=== PATIENT | female | born 1960 | race African-American/Black ===

== ENCOUNTER → 2016-09-26 | Outpatient (CLI) | payer MEDICAID ==
[2016-02-03 10:21] VITALS: BP 164/77
--- NOTE | 2016-09-27 10:31 | MG ---
HISTORY: SCREENING Comparison: August 23, 2014 and September 13, 2015 FINDINGS: Bilateral CC and MLO projections of the right and left breast were obtained. Scattered fibroglandul ar tissue is seen to be present without suspicious interval change. No new or developing architectu ral distortion, mass or clustered microcalcifications can be observed to suggest malignancy. No ski n thickening or nipple retraction is appreciated. No pathological lymphadenopathy can be identifie d. Benign-appearing calcifications are noted within the right and left breast. The patient has under gone previous reduction mammoplasty with findings of fat necrosis and oil cyst formation. IMPRESSION: NO RADIOGRAPHIC EVIDENCE OF MALIGNANCY. ACR CATEGORY 2 - benign findings. FOLLOW-UP EXAM 1 YEAR. Diagnostic CAD was utilized and reviewed. * 0 (ZERO) - ASSESSMENT INCOMPLETE; ADDITIONAL IMAGING IS NEEDED. * 1/1 (ONE) - NEGATIVE. * 2/II (TWO) - BENIGN FINDINGS. * 3/III (THREE) - PROBABLY BENIGN FINDING; SHORT INTERVAL FOLLOW-UP SUGGESTED. * 4/IV (FOUR) - SUSPICIOUS ABNORMALITY; BIOPSY SHOULD BE CONSIDERED. * 5/V (FIVE) - HIGHLY SUSPICIOUS OF MALIGNANCY; BIOPSY SHOULD BE PERFORMED. A NEGATIVE X-RAY REPORT SHOULD NOT DELAY BIOPSY IF A DOMINANT OR CLINICALLY SUSPICIOUS MASS IS PRESENT; 4 TO 8 PERCENT OF CANCERS ARE NOT IDENTIFIED BY X-RAY. A NEG ATIVE REPORT MAY REINFORCE THE CLINICAL IMPRESSION. ADENOSIS AND DENSE BREASTS MAY OBSCURE AN UNDER LYING NEOPLASM. Reported By:
== END ==
LOC: RAD 09:22
PROVIDERS: ATTEND Nurse Practitioner Family
DX: Z12.31 Encounter for screening mammogram for malignant neoplasm of breast (principal)
CPT/HCPCS: 77067

== ENCOUNTER 2019-05-04 07:10 | Inpatient (IN) ==
[2019-05-04 07:23] VITALS: BMI 58.1
[2019-05-04] MEDS ORDERED: ZOFRAN INJ 4 MG VIAL IM ONE (07:45)
[2019-05-04] MEDS ORDERED: TORADOL 60 MG VIAL IM ONE (07:45)
[2019-05-04] MEDS ORDERED: TORADOL 60 MG VIAL ONE (07:48)
[2019-05-04] MEDS ORDERED: ZOFRAN INJ 4 MG VIAL ONE ×3 (07:48→09:29)
[2019-05-04 08:11] LABS: BASOPHILS % (AUTO) 0.6 % (0.2-1.0); EOSINOPHILS # (AUTO) 0.2 x10^3/uL (0.0-0.2); EOSINOPHILS % (AUTO) 2.9 % (0.9-2.9); HEMATOCRIT 33.9 % (36.0-47.0); HEMOGLOBIN 11.3 g/dL (12.0-16.0); LYMPHOCYTES # (AUTO) 1.2 X10^3/uL (1.3-2.9); LYMPHOCYTES % (AUTO) 19.9 % (21.0-51.0); MEAN CORPUSCULAR HEMOGLOBIN 27.5 pg (27.0-34.0); MEAN CORPUSCULAR HGB CONC 33.4 g/dL (33.0-35.0); MEAN CORPUSCULAR VOLUME 82.5 fL (80.0-100.0); MEAN PLATELET VOLUME 7.5 fL (7.4-11.0); MONOCYTES # (AUTO) 0.2 x10^3/uL (0.3-0.8); MONOCYTES % (AUTO) 4.1 % (0.0-13.0); NEUTROPHILS # (AUTO) 4.4 x10^3/uL (2.2-4.8); NEUTROPHILS % (AUTO) 72.5 % (42.0-75.0); PLATELET COUNT 284 X10^3/uL (150.0-450.0); RED BLOOD COUNT 4.11 X10^6/uL (3.5-5.4); RED CELL DISTRIBUTION WIDTH 14.7 % (11.6-16.5); WHITE BLOOD COUNT 6.1 X10^3/uL (3.6-10.0)
[2019-05-04 08:19] LABS: ALANINE AMINOTRANSFERASE 17 Units/L (12-78); ALBUMIN 3.5 g/dL (3.4-5.0); ALKALINE PHOSPHATASE 100 Units/L (46-116); AMYLASE 51 Units/L (25-115); ASPARTATE AMINO TRANSFERASE 16 Units/L (15-37); BLOOD UREA NITROGEN 12 mg/dL (7-18); CALCIUM 8.9 mg/dL (8.5-10.1); CARBON DIOXIDE 33.5 mmol/L (21-32); CHLORIDE 101 mmol/L (98-107); COR NA(FOR HYPERGLY) 141 mmol/L (136-145); CREATININE 0.83 mg/dL (0.55-1.02); LIPASE 101 Units/L (73-393); SODIUM 140 mmol/L (136-145); TOTAL PROTEIN 8.3 g/dL (6.4-8.2); eGFR NON BLACK RACES > 60 (>60)
[2019-05-04] MEDS ORDERED: ROBINUL ONE (08:27)
[2019-05-04] MEDS ORDERED: DIPRIVAN VIAL ONE (08:27)
[2019-05-04] MEDS ORDERED: NEOSTIGMINE INJ ONE (08:27)
[2019-05-04] MEDS ORDERED: QUELICIN (OR ANECTINE) ONE (08:27)
[2019-05-04] MEDS ORDERED: NORCURON INJ 10 MG VIAL ONE (08:27)
[2019-05-04] MEDS ORDERED: SUPRANE ONE (08:27)
[2019-05-04] MEDS ORDERED: XYLOCAINE 2 % (PLAIN) ONE (08:27)
[2019-05-04] MEDS ORDERED: VERSED ONE (08:27)
[2019-05-04] MEDS ORDERED: EPHEDRINE SULFATE INJ ONE (08:27)
[2019-05-04] MEDS ORDERED: PROTONIX INJ 40 MG VIAL IVP ONE (08:56)
[2019-05-04 09:03] LABS: BILIRUBIN,URINE NEGATIVE (NEGATIVE); BLOOD/HEMOGLOBIN,URINE NEGATIVE (NEGATIVE); GLUCOSE, URINE NEGATIVE (NEGATIVE); KETONES,URINE NEGATIVE (NEGATIVE); LEUKOCYTE ESTERASE ,URINE NEGATIVE (NEGATIVE); NITRITES,URINE NEGATIVE (NEGATIVE); PROTEIN,URINE 1+ (NEGATIVE); UROBILINOGEN,URINE NORMAL (NORMAL)
[2019-05-04] MEDS ORDERED: PROTONIX INJ 40 MG VIAL ONE (09:04)
[2019-05-04] MEDS ORDERED: CATAPRES TAB 0.2 MG ONE (09:04)
--- NOTE | 2019-05-04 09:04 | ED.ABDFE ---
HPI Time Seen Time Seen by Provider: 05/04/19 07:42 PCP Primary Care Physician: EMANUEL HPI Comment HPI Comment: Ever since her cholecystectomy, she has had intermittent abd pain. Last night, more severe w vomiting. No fever. She says she has a hernia in her belly(?). Complaint Chief Complaint:: PT STATES I HAD MY GALL BLADDER OUT BEFORE THANKSGVING.MY STOMACH IS HURTNG IN THE UPPER GASTRIC PAIN. I HAVE BEEN TRHOWING UP ALL NIGHT AND HAVE DRY HEAVES NOW." DENIES DIARRHEA, NO BLOOD WITH EMESIS. LAST TIME HAD BM LAST NIGHT Self Treatment fo Chief Complaint: PT FAMILY VOCIES CONCERN WITH PT DRINKING LIQUOR, PT GETS DEFENSIVE WITH FAMILY. Reviewed Nurses Notes Review: Yes Source History Provided: Patient and Family Member Mode of arrival Mode of Arrival: Ambulatory Timing Onset of Chief Complaint: 05/04/19 Came on: Gradually Duration Since Onset: Since Onset Location Location: Epigastric Severity Severity: Severe Quality Quality: Cramping and Sharp Context History of: Abdominal surgery Modifying factors Worsening Factors: Nothing Improving Factors: Nothing Associated signs and symptoms Associated Signs and Symptoms: Vomiting; denies Diarrhea, Constipation, Hematemesis and Dysuria PMH PMH Past Medical History: Yes Past Medical History: Asthma, CHF, COPD and Hypertension Past Surgical History: Yes Surgical History: and Cholecystectomy Past Surgical History Comment: BTL Family History History of Family Medical Conditions: Yes Family Medical History: Hypertension Social History Does patient currently use any type of tobacco product: Yes Have you used tobacco products in the last 12 months: Yes Does any household member use tobacco: No Alcohol Use: Occasionally and Other (her family indicates regular use of ETOH) Do you use any recreational Drugs:: No Lives With: Family Lives Where: Home infectious screening In the last 2 months have you had wt loss of >10#?: NO Have you had fever, night sweats or hemotysis?: No Have you traveled outside the country in the last 6 months?: No Isolation: Standard ROS Review of Systems Constitutional: No Symptoms Reported; negative Fever Respiratoy: No Symptoms Reported Cardiovascular: No Symptoms Reported Gastrointestinal/Abdominal: See HPI, Abdominal Pain and Vomiting; negative Diarrhea Genitourinary: No Symptoms Reported Neurological: No Symptoms Reported Musculoskeletal: No Symptoms Reported Integumentary: No Symptoms Reported All Other Systems: Reviewed and Negative PE Vital Signs Vitals: Temperature 98.5 F Pulse Rate 34 Respiratory Rate 20 Blood Pressure [Left Arm] 147/71 Blood Pressure [Right Arm] 182/86 Blood Pressure 180/92 O2 Sat by Pulse Oximetry 98 General Limitations: No Limitations General Appearance: Alert, In No Apparent Distress and Other (in pain) Eyes Eye exam: Normal Appearance and EOMI; negative Scleral Icterus ENT ENT Exam: Mucous Membranes Moist Neck Neck Exam: Full ROM Chest Chest Inspection: Normal Inspection Respiratory Respiratory Exam: Other (faint wheezes anteriorly); negative Accessory Muscle Use and Respiratory Distress Cardiovascular Cardiovascular Exam: Regular Rate and Normal Rhythm Abdominal Exam Abdominal Exam: Soft, Tenderness and Other (pt is morbidly obese, which limits abd exam.); negative Guarding and Rigidity Abdominal Tenderness: Epigastrium Rectal Rectal Exam: Deferred Extremeties Extremities Exam: Full ROM External Exam: Female: Deferred : Speculum Exam (Female): Deferred : Bimanual Exam (female): Deferred Neurologic Neurological Exam: Alert and Oriented X3 Psychiatric Psychiatric Exam: Anxious Skin Skin Exam: Warm and Normal Color; negative Rash MDM Differential Diagnosis Differential Diagnosis- Considerations may include:: Bowel Obstruction, Diverticular disease, Pancreatitis and Other (comments) (hernia w incarceration) ROR Labs Reviewed Laboratory Results Reviewed?: Yes Result Diagrams: 05/04/19 07:57 05/04/19 07:57 Laboratory: WBC 6.1 X10^3/uL (3.6-10.0) 05/04/19 07:57 RBC 4.11 X10^6/uL (3.5-5.4) 05/04/19 07:57 Hgb 11.3 g/dL (12.0-16.0) L 05/04/19 07:57 Hct 33.9 % (36.0-47.0) L 05/04/19 07:57 MCV 82.5 fL (80.0-100.0) 05/04/19 07:57 MCH 27.5 pg (27.0-34.0) 05/04/19 07:57 MCHC 33.4 g/dL (33.0-35.0) 05/04/19 07:57 RDW 14.7 % (11.6-16.5) 05/04/19 07:57 Plt Count 284 X10^3/uL (150.0-450.0) 05/04/19 07:57 MPV 7.5 fL (7.4-11.0) 05/04/19 07:57 Neut % (Auto) 72.5 % (42.0-75.0) 05/04/19 07:57 Lymph % (Auto) 19.9 % (21.0-51.0) L 05/04/19 07:57 [place] % (Auto) 4.1 % (0.0-13.0) 05/04/19 07:57 Eos % (Auto) 2.9 % (0.9-2.9) 05/04/19 07:57 Baso % (Auto) 0.6 % (0.2-1.0) 05/04/19 07:57 Neut # (Auto) 4.4 x10^3/uL (2.2-4.8) 05/04/19 07:57 Lymph # (Auto) 1.2 X10^3/uL (1.3-2.9) L 05/04/19 07:57 [place] # (Auto) 0.2 x10^3/uL (0.3-0.8) L 05/04/19 07:57 Eos # (Auto) 0.2 x10^3/uL (0.0-0.2) 05/04/19 07:57 Baso # (Auto) 0.0 X10^3/uL (0.0-0.1) 05/04/19 07:57 Absolute Nucleated RBC 0.0 /100WBC 05/04/19 07:57 Sodium 140 mmol/L (136-145) 05/04/19 07:57 Corrected Sodium 141 mmol/L (136-145) 05/04/19 07:57 Potassium 3.6 mmol/L (3.5-5.1) 05/04/19 07:57 Chloride 101 mmol/L (98-107) 05/04/19 07:57 Carbon Dioxide 33.5 mmol/L (21-32) H 05/04/19 07:57 BUN 12 mg/dL (7-18) 05/04/19 07:57 Creatinine 0.83 mg/dL (0.55-1.02) 05/04/19 07:57 Est GFR (MDRD) Af Amer > 60 (>60) 05/04/19 07:57 Est GFR (MDRD) Non-Af > 60 (>60) 05/04/19 07:57 Glucose 132 mg/dL (65-99) H 05/04/19 07:57 Calcium 8.9 mg/dL (8.5-10.1) 05/04/19 07:57 Corrected Calcium TNP 05/04/19 07:57 Total Bilirubin 0.30 mg/dL (0.2-1.0) 05/04/19 07:57 AST 16 Units/L (15-37) 05/04/19 07:57 ALT 17 Units/L (12-78) 05/04/19 07:57 Alkaline Phosphatase 100 Units/L (46-116) 05/04/19 07:57 Total Protein 8.3 g/dL (6.4-8.2) H 05/04/19 07:57 Albumin 3.5 g/dL (3.4-5.0) 05/04/19 07:57 Globulin 4.8 g/dL (2.5-4.5) H 05/04/19 07:57 Albumin/Globulin Ratio 0.7 Ratio (1.1-2.1) L 05/04/19 07:57 Amylase 51 Units/L (25-115) 05/04/19 07:57 Lipase 101 Units/L (73-393) 05/04/19 07:57 Specimen Type Clean catch urine 05/04/19 08:27 Urine Color Yellow (YELLOW) 05/04/19 08:27 Urine Appearance Clear (CLEAR) 05/04/19 08:27 Urine pH 8.0 (5.0 - 8.0) 05/04/19 08:27 Ur Specific [place] 1.010 (1.000-1.030) 05/04/19 08:27 Urine Protein 1+ (NEGATIVE) 05/04/19 08:27 Urine Glucose (UA) Negative (NEGATIVE) 05/04/19 08:27 Urine Ketones Negative (NEGATIVE) 05/04/19 08:27 Urine Occult Blood Negative (NEGATIVE) 05/04/19 08:27 Urine Nitrite Negative (NEGATIVE) 05/04/19 08:27 Urine Bilirubin Negative (NEGATIVE) 05/04/19 08:27 Urine Urobilinogen Normal (NORMAL) 05/04/19 08:27 Ur Leukocyte Esterase Negative (NEGATIVE) 05/04/19 08:27 Urine RBC None seen /HPF (0-3) 05/04/19 08:27 Urine WBC 0-2 /HPF (0-5) 05/04/19 08:27 Ur Squamous Epith Cells Few /HPF (NEGATIVE) 05/04/19 08:27 Urine Bacteria Trace /HPF (NEGATIVE) 05/04/19 08:27 Ur Culture Indicated? No/not indicated 05/04/19 08:27 XRAY XRAY Interpreted by: Radiologist XRAY Findings: CT abd shows incarcerated mesentery and bowel Opioid Opioid Risk Tool Age (Aristeo box if 16-45): No History of Preadolescent Sexual Abuse: No Total: 0 Total Score Risk Category: Low Risk Copyright: Negrito LAZAR predicting aberrant behaviors Instructions Forms: Excuse From Work Patient Portal ADDITIONAL NOTES Additional Notes Additional Notes: Surgery consulted to take pt to OR for incarcerated abd wall hernia
[2019-05-04] MEDS: CATAPRES TAB 0.2 MG PO ONE ×2 (09:12→09:13)
[2019-05-04] MEDS ORDERED: NS 1000 ML 1,000 ML ONE (09:14)
--- NOTE | 2019-05-04 09:14 | ED.ABDFE ---
HPI Time Seen Time Seen by Provider: 05/04/19 07:42 PCP Primary Care Physician: EMANUEL HPI Comment HPI Comment: PATIENT IS 59YR OLD FEMALE IN ER WITH ABDOMINAL PAIN, NAUSEA AND VOMITING ALL NIGHT. WORSE THIS AM. PAIN 01/22 AND RADIATES TO CK. SIMILAR PAIN PREVIOUSLY BUT NOT THIS INTENSE. NO FEVER. NO DYSURIA. CHOLECYSTECTOMY 02/2019 AND EPIGASTRIC PAIN SINCE. THIS PAIN GOT WORSE LAST NIGHT. ALSO HISTORY OF ABDOMINAL WALL HERNIA AND CONCERN PAIN MAY BE FROM THE HERNIA. PAIN RADIATES TO BACK. HAD BM LAST NIGHT. Complaint Doctors Chief Complaint Comments: ABDOMINAL PAIN WITH NAUSEA AND VOMITING ALL NIGHT. Chief Complaint:: PT STATES I HAD MY GALL BLADDER OUT BEFORE .MY STOMACH IS HURTNG IN THE UPPER GASTRIC PAIN. I HAVE BEEN TRHOWING UP ALL NIGHT AND HAVE DRY HEAVES NOW." DENIES DIARRHEA, NO BLOOD WITH EMESIS. LAST TIME HAD BM LAST NIGHT Self Treatment fo Chief Complaint: PT FAMILY VOCIES CONCERN WITH PT DRINKING LIQUOR, PT GETS DEFENSIVE WITH FAMILY. Reviewed Nurses Notes Review: Yes Source History Provided: Patient and Family Member Mode of arrival Mode of Arrival: Ambulatory Timing Onset of Chief Complaint: 05/04/19 Came on: Suddenly Duration Since Onset: Constant Duration: Hours Location Location: Diffuse and Epigastric Severity Severity: Moderate Quality Quality: Cramping and Sharp Context History of: Abdominal surgery Modifying factors Worsening Factors: Exertion Improving Factors: Lying Still Associated signs and symptoms Associated Signs and Symptoms: Nausea and Vomiting PMH PMH Past Medical History: Yes Past Medical History: Asthma, CHF, COPD and Hypertension Past Surgical History: Yes Surgical History: and Cholecystectomy Family History History of Family Medical Conditions: Yes Family Medical History: Hypertension Social History Does any household member use tobacco: No Alcohol Use: Rarely Do you use any recreational Drugs:: No Lives With: Family Lives Where: Home infectious screening In the last 2 months have you had wt loss of >10#?: NO Have you had fever, night sweats or hemotysis?: No Have you traveled outside the country in the last 6 months?: No Isolation: Standard ROS Review of Systems Constitutional: No Symptoms Reported, See HPI, Weakness and Fatigue; negative Fever Eyes: No Symptoms Reported and See HPI ENTM: No Symptoms Reported and See HPI; negative Ear Pain, Nose Discharge, Nose Congestion and Throat Pain Respiratoy: See HPI and Short of Breath (ON EXERTION.); negative Wheezing Cardiovascular: See HPI and Edema; negative Chest Pain and Palpitations Gastrointestinal/Abdominal: See HPI, Abdominal Pain, Nausea and Vomiting Genitourinary: No Symptoms Reported and See HPI Neurological: See HPI and Weakness; negative Headache and Dizziness Musculoskeletal: See HPI and Back Pain Integumentary: No Symptoms Reported and See HPI; negative Change in Color, Rash and Juandice Hematologic/Lymphatic: No Symptoms Reported, See HPI, Easy Bleeding and Easy Bruising; negative Swollen Glands Endocrine: No Symptoms Reported and See HPI; negative Increased Thirst, Increased Urine and Decreased Appetite Psychiatric: No Symptoms Reported and See HPI All Other Systems: Reviewed and Negative PE Vital Signs Vitals: Temperature 98.5 F Pulse Rate 34 Respiratory Rate 20 Blood Pressure [Left Arm] 147/71 Blood Pressure [Right Arm] 182/86 Blood Pressure 180/92 O2 Sat by Pulse Oximetry 98 General Limitations: No Limitations and Language Barrier General Appearance: Alert and In No Apparent Distress Head Head Exam: Normal Inspection and Atraumatic Eyes Eye exam: Normal Appearance and PERRL; negative Scleral Icterus and Conjunctival Injection ENT ENT Exam: Normal Exam, Normal Oropharynx, Normal External Ear Exam and TM's Normal Bilaterally Neck Neck Exam: Normal Inspection and Trachea Midline; negative Tenderness and Lymphadenopathy Chest Chest Inspection: Normal Inspection and Symmetric Chest Wall Rise; negative Tenderness Respiratory Respiratory Exam: Normal Lung Sounds Bilat; negative Accessory Muscle Use, Chest Wall Tenderness and Respiratory Distress Respiratory Exam: Bilateral: Rhonchi and Lower: Rhonchi Cardiovascular Cardiovascular Exam: Regular Rate, Normal Rhythm and Normal Heart Sounds Abdominal Exam Abdominal Exam: Normal Inspection, Normal Bowel Sounds, Soft and Tenderness Abdominal Tenderness: Epigastrium, Diffuse and Moderate Rectal Rectal Exam: Deferred Back Back Exam: Normal Inspection Extremeties Extremities Exam: Normal Capillary Refill and Edema; negative Tenderness and Calf Tenderness External Exam: Female: Deferred : Speculum Exam (Female): Deferred : Bimanual Exam (female): Deferred Neurologic Neurological Exam: Alert and Oriented X3; negative Motor Sensory Deficit Psychiatric Psychiatric Exam: Normal Affect and Normal Mood Skin Skin Exam: Warm, Dry, Intact and Normal Color MDM Differential Diagnosis Differential Diagnosis- Considerations may include:: Constipation, Diverticular disease, Gastritus/PUD, Hernia, Inflammatory BD, Pancreatitis, Urinary tract infection and Urolithiasis COURSE Treatment Treatment: SEE ORDERS. PATIENT SIGN OUT TO DR. MCKENZIE AT 08:45AM. ROR Labs Reviewed Result Diagrams: 05/04/19 07:57 05/04/19 07:57 Laboratory: WBC 6.1 X10^3/uL (3.6-10.0) 05/04/19 07:57 RBC 4.11 X10^6/uL (3.5-5.4) 05/04/19 07:57 Hgb 11.3 g/dL (12.0-16.0) L 05/04/19 07:57 Hct 33.9 % (36.0-47.0) L 05/04/19 07:57 MCV 82.5 fL (80.0-100.0) 05/04/19 07:57 MCH 27.5 pg (27.0-34.0) 05/04/19 07:57 MCHC 33.4 g/dL (33.0-35.0) 05/04/19 07:57 RDW 14.7 % (11.6-16.5) 05/04/19 07:57 Plt Count 284 X10^3/uL (150.0-450.0) 05/04/19 07:57 MPV 7.5 fL (7.4-11.0) 05/04/19 07:57 Neut % (Auto) 72.5 % (42.0-75.0) 05/04/19 07:57 Lymph % (Auto) 19.9 % (21.0-51.0) L 05/04/19 07:57 [place] % (Auto) 4.1 % (0.0-13.0) 05/04/19 07:57 Eos % (Auto) 2.9 % (0.9-2.9) 05/04/19 07:57 Baso % (Auto) 0.6 % (0.2-1.0) 05/04/19 07:57 Neut # (Auto) 4.4 x10^3/uL (2.2-4.8) 05/04/19 07:57 Lymph # (Auto) 1.2 X10^3/uL (1.3-2.9) L 05/04/19 07:57 [place] # (Auto) 0.2 x10^3/uL (0.3-0.8) L 05/04/19 07:57 Eos # (Auto) 0.2 x10^3/uL (0.0-0.2) 05/04/19 07:57 Baso # (Auto) 0.0 X10^3/uL (0.0-0.1) 05/04/19 07:57 Absolute Nucleated RBC 0.0 /100WBC 05/04/19 07:57 Sodium 140 mmol/L (136-145) 05/04/19 07:57 Corrected Sodium 141 mmol/L (136-145) 05/04/19 07:57 Potassium 3.6 mmol/L (3.5-5.1) 05/04/19 07:57 Chloride 101 mmol/L (98-107) 05/04/19 07:57 Carbon Dioxide 33.5 mmol/L (21-32) H 05/04/19 07:57 BUN 12 mg/dL (7-18) 05/04/19 07:57 Creatinine 0.83 mg/dL (0.55-1.02) 05/04/19 07:57 Est GFR (MDRD) Af Amer > 60 (>60) 05/04/19 07:57 Est GFR (MDRD) Non-Af > 60 (>60) 05/04/19 07:57 Glucose 132 mg/dL (65-99) H 05/04/19 07:57 Calcium 8.9 mg/dL (8.5-10.1) 05/04/19 07:57 Corrected Calcium TNP 05/04/19 07:57 Total Bilirubin 0.30 mg/dL (0.2-1.0) 05/04/19 07:57 AST 16 Units/L (15-37) 05/04/19 07:57 ALT 17 Units/L (12-78) 05/04/19 07:57 Alkaline Phosphatase 100 Units/L (46-116) 05/04/19 07:57 Total Protein 8.3 g/dL (6.4-8.2) H 05/04/19 07:57 Albumin 3.5 g/dL (3.4-5.0) 05/04/19 07:57 Globulin 4.8 g/dL (2.5-4.5) H 05/04/19 07:57 Albumin/Globulin Ratio 0.7 Ratio (1.1-2.1) L 05/04/19 07:57 Amylase 51 Units/L (25-115) 05/04/19 07:57 Lipase 101 Units/L (73-393) 05/04/19 07:57 Specimen Type Clean catch urine 05/04/19 08:27 Urine Color Yellow (YELLOW) 05/04/19 08:27 Urine Appearance Clear (CLEAR) 05/04/19 08:27 Urine pH 8.0 (5.0 - 8.0) 05/04/19 08:27 Ur Specific [place] 1.010 (1.000-1.030) 05/04/19 08:27 Urine Protein 1+ (NEGATIVE) 05/04/19 08:27 Urine Glucose (UA) Negative (NEGATIVE) 05/04/19 08: Urine Ketones Negative (NEGATIVE) 05/04/19 08:27 Urine Occult Blood Negative (NEGATIVE) 05/04/19 08:27 Urine Nitrite Negative (NEGATIVE) 05/04/19 08:27 Urine Bilirubin Negative (NEGATIVE) 05/04/19 08:27 Urine Urobilinogen Normal (NORMAL) 05/04/19 08:27 Ur Leukocyte Esterase Negative (NEGATIVE) 05/04/19 08:27 Urine RBC None seen /HPF (0-3) 05/04/19 08:27 Urine WBC 0-2 /HPF (0-5) 05/04/19 08:27 Ur Squamous Epith Cells Few /HPF (NEGATIVE) 05/04/19 08:27 Urine Bacteria Trace /HPF (NEGATIVE) 05/04/19 08:27 Ur Culture Indicated? No/not indicated 05/04/19 08:27 Opioid Opioid Risk Tool Age (Aristeo box if 16-45): No History of Preadolescent Sexual Abuse: No Total: 0 Total Score Risk Category: Low Risk Copyright: Negrito LAZAR predicting aberrant behaviors Diagnosis Discharge Problem: Constipation Instructions Forms: Excuse From Work Patient Portal
[2019-05-04] MEDS: NS 1000 ML 1,000 ML IV SCH ×5 (09:18→23:01)
[2019-05-04 09:20] LABS: APPEARANCE,URINE CLEAR (CLEAR); BACTERIA,URINE TRACE /HPF (NEGATIVE); COLOR,URINE YELLOW (YELLOW); RBC,URINE NONE SEEN /HPF (0-3); SQUAMOUS EPITHELIAL CELL,UR FEW /HPF (NEGATIVE)
[2019-05-04] MEDS ORDERED: ZOFRAN INJ 4 MG VIAL IVP ONE (09:29)
--- NOTE | 2019-05-04 11:59 | CT ---
HISTORYAbdominal pain, vomitingSTUDYABDOMEN/PELVIS WITH CONTechnique: Axial post-contrast images with coronal and sagittal reformats. Dose reduction procedures were used with mA/kv adjusted for body size.COMPARISONNoneFINDINGSThe lung bases are clear. The heart is enlarged. The liver, spleen, adrenal glands, and pancreas are within normal limits. Patient is status post cholecystectomy. The kidneys are unobstructed and without masses. There is a 2 mm nonobstructing left lower pole renal calculus present. No ureteral calculi are identified. The abdominal aorta is normal. No intraperitoneal or retroperitoneal lymphadenopathy of significance is identified. The appendix is not identified with absolute certainty. There are no secondary signs of appendicitis present. There are no findings to suggest enteritis, diverticulitis, or colitis. There is a left paramedian infraumbilical ventral hernia containing mesenteric fat and a loop small bowel which demonstrates very mild dilatation and some luminal constriction as the bowel passes into the hernia. This is best visualized on CT series 7 sagittal image 33 there are no definite signs of strangulation. Incarceration is possible. The contrast filled of proximal to the hernia is not dilated. No pelvic masses, pelvic fluid, or pelvic lymphadenopathy is identified. No lytic or blastic skeletal lesions of significance are identified.IMPRESSIONLeft-sided infraumbilical paramedian ventral hernia containing mesenteric fat and a loop of mildly dilated small bowel. No findings of strangulation at this time. Incarceration is suspected as there is luminal constriction of both loops as they pass into the hernia. Surgical evaluation is recommended.2 mm left lower pole renal calculusCardiomegaly without congestive heart failureElectronically signed by: GAYE TONG (May 04, 2019 11:58:31)
[2019-05-04] MEDS ORDERED: [UNRECOGNIZED DRUG - OTHER] IM ONE (12:58)
--- NOTE | 2019-05-04 13:02 | RAD ---
HISTORYPreopSTUDYPortable AP chestCOMPARISONApril 2018FINDINGSThere is unchanged cardiomegaly. The lungs are grossly clear. There is no edema or effusion. No significant bony abnormality is demonstrated.IMPRESSIONNo evidence for acute cardiopulmonary diseaseElectronically signed by: ROLAND PEREZ (May 04, 2019 13:01:26)
[2019-05-04] MEDS ORDERED: FENTANYL INJ 250 mcg ONE (13:17)
[2019-05-04] MEDS ORDERED: NS 500 ML IV 500 ML IV ONE (13:48)
[2019-05-04] MEDS ORDERED: ANCEF 1 GRAM IV PREMIX* 2 G/100 ML BAG IV ONE (13:57)
[2019-05-04] MEDS ORDERED: LEVAQUIN PREMIX IV 500 MG 500 MG/100 ML BAG IV ONE (14:33)
[2019-05-04] MEDS ORDERED: BACITRACIN VIAL ONE (14:49)
[2019-05-04] MEDS ORDERED: NS IRRIGATION 1000 ML ONE (15:12)
[2019-05-04] MEDS ORDERED: ZOFRAN INJ 4 MG VIAL IVP PRN (16:05)
[2019-05-04] MEDS ORDERED: REGLAN INJ 10 MG VIAL IVP PRN (16:05)
[2019-05-04] MEDS ORDERED: BENADRYL INJ 50 MG VIAL IVP PRN (16:05)
[2019-05-04] MEDS ORDERED: PHENERGAN INJ 25 MG IM PRN (16:05)
[2019-05-04] MEDS ORDERED: DILAUDID INJ ONE (16:17)
[2019-05-04] MEDS: DILAUDID INJ IVP PRN ×3 (16:19→21:10)
--- NOTE | 2019-05-04 16:35 | DR.UPDATE ---
H&P Update History and Physical Update: History and Physical reviewed and patient examined. Changes noted: NO Yes with the following:agree with H&P. will place central line for post op iv access. Procedures (ALL) - Central Line Placement PCM.CLCO: verbal consent Time out performed: Yes Patient placed pm monitor/pulse ox: Yes MD prep: mask, gown, gloves, other Centrial line prep: chlorhexidine scrub Local anesthsia used: other anesthetic (pt was under general anesthesia) Ultrasound used for placement: Yes (right IJ id'd) Central line lumen ininserted: triple Post procedure: sutured in place, good blood return, all ports aspirated, flushed,capped, sterile dressing applied Post procedure xray: tip oc catheter in good position Patient tolerated procedure: Yes Complications: none
--- NOTE | 2019-05-04 17:03 | RAD ---
HISTORYReason For StudySTUDYCHEST, 1 VIEWCOMPARISONJanuary 2019, July 26, 2018FINDINGSThe trachea is midline. The cardiac silhouette is enlarged. Right hilar prominence is again demonstrated similar to prior exams. A right-sided central venous catheter is noted with the tip projecting near the caval atrial junction.IMPRESSIONCardiomegaly.Right-sided central venous catheter as noted above.Electronically signed by: NEVA HUBBARD (May 04, 2019 17:02:05)
[2019-05-04] MEDS: ANCEF VIAL 1 GRAM IVP SCH (21:15)
[2019-05-05] MEDS: NS 1000 ML 1,000 ML IV SCH ×5 (02:58→14:34)
[2019-05-05] MEDS: DILAUDID INJ IVP PRN (06:00)
[2019-05-05] MEDS: ANCEF VIAL 1 GRAM IVP SCH ×2 (06:20→15:19)
[2019-05-05] MEDS ORDERED: MICRO K EXTEN CAP 10 MEQ PO PRN (07:57)
[2019-05-05] MEDS ORDERED: K-RIDER 10 MEQ/NS 100 ML 10 MEQ/100 ML BAG IV PRN (07:57)
[2019-05-05] MEDS ORDERED: POTASSIUM CHLORIDE LIQ 20 MEQ UDC PO PRN (07:57)
[2019-05-05] MEDS ORDERED: POTASSIUM CHL 40 MEQ/NS 0.45% 500 ML IV PRN (07:57)
[2019-05-05] MEDS ORDERED: POTASSIUM CHL 60 MEQ/NS 0.45% 500 ML IV PRN (07:57)
[2019-05-05] MEDS ORDERED: KLOR-CON PO PRN (07:57)
[2019-05-05] MEDS ORDERED: K-DUR TAB 20 MEQ PO PRN (07:57)
[2019-05-05] MEDS ORDERED: LOVENOX INJ 40 MG SYR SC SCH (09:00)
[2019-05-05] MEDS: PERCOCET TAB 5/325 MG PO PRN ×2 (11:09→15:17)
[2019-05-05 16:47] VITALS: BP 139/60
== END 2019-05-05 16:35 | disposition home or self-care (01) | DRG 336 ==
LOC: ER 07:17 → MED/SURG 12:30
PROVIDERS: ADMIT Surgery; ATTEND Surgery
DX: I87.2 Venous insufficiency (chronic) (peripheral); K43.6 Other and unspecified ventral hernia with obstruction, without gangrene; K56.51 Intestinal adhesions [bands], with partial obstruction; R51 Headache; I10 Essential (primary) hypertension; E66.01 Morbid (severe) obesity due to excess calories
CPT/HCPCS: 36415; 36556; 71010; 71045; 74177; 80053; 81001; 82150; 83690; 83735; 85025; 87070; 87075; 87205; 93005; 94760; 96365; 96367; 96372; 96374; 96375; 97162; 97165; 99284; A4216; A4222; C9113; G0378; J0330; J0690; J1170; J1650; J1885; J1956; J2250; J2405; J2704; J2710; J3010; J3490; J7030

== ENCOUNTER 2021-09-21 07:17 | Inpatient (IN) ==
[2021-09-21 07:23] VITALS: BMI 71.2
[2021-09-21] MEDS ORDERED: LASIX IVP ONE ×2 (07:28→07:29)
[2021-09-21] MEDS ORDERED: LASIX ONE (07:29)
[2021-09-21 07:31] LABS: ABG BASE EXCESS 9.5 mmol/L (-2.0-2.0)
[2021-09-21 07:33] LABS: ABG ALLEN TEST POS; ABG HCO3 37.3 mmol/L (22-26)
--- NOTE | 2021-09-21 07:39 | DR.GENAD ---
HPI Time Seen Time Seen by Provider: 09/21/21 07:26 PCP Primary Care Physician: EMANUEL HPI Comment HPI Comment: A 61 y/o female presenting with SOB x 3 months. There is no associated c/p. SHe has some issues with her RLE dragging and swelling. Complaint/Symptoms Chief Complaint:: PT. C/O SHORTNESS OF BREATH AND RIGHT LEG HEAVINESS X A FEW MONTHS. PT. STATES "I FEEL LIKE I HAVE TO DRAG THAT LEG." COVID-19 Coronavirus risk:travel/contact w/high risk person: No Has patient experienced Coronavirus symptoms: Yes Coronavirus symptoms experienced: Shortness of Breath Source History Provided: Patient Mode of Arrival Mode of Arrival: Wheelchair Timing Onset of Chief Complaint: 07/23/21 PMH PMH Past Medical History: Yes Past Medical History: Arthritis, Asthma, CHF, COPD and Hypertension Past Surgical History: Yes Surgical History: Family History History of Family Medical Conditions: Yes Family Medical History: Hypertension Social History Does patient currently use any type of tobacco product: No Have you used tobacco products in the last 12 months: No Type of Tobacco Use: None Does any household member use tobacco: No Alcohol Use: None Do you use any recreational Drugs:: No Lives With: Family Lives Where: Home Travel Risk Coronavirus risk:travel/contact w/high risk person: No Has patient experienced Coronavirus symptoms: Yes Coronavirus symptoms experienced: Shortness of Breath Infectious screening In the last 2 months have you had wt loss of >10#?: NO Have you had fever, night sweats or hemotysis?: No Have you traveled outside the country in the last 6 months?: No Isolation: Standard PE Vital Signs Vitals: Temperature 98.4 F Pulse Rate 88 Respiratory Rate 30 Blood Pressure [Left Arm] 152/90 Blood Pressure 172/87 O2 Sat by Pulse Oximetry 79 Opioid Opioid Risk Tool Age (Aristeo box if 16-45): No History of Preadolescent Sexual Abuse: No Total: 0 Total Score Risk Category: Low Risk Copyright: Negrito LAZAR predicting aberrant behaviors
--- NOTE | 2021-09-21 07:44 | DR.SOBA ---
HPI <GIOVANIJimmyTARIQADONAY - Last Filed: 09/24/21 10:38> Time Seen Time Seen by Provider: 09/21/21 07:26 Primary Care Physician Primary Care Physician: EMANUEL LOZANO Comment HPI Comment: A 61 y/o female presenting with SOB x 3 months. There is no associated c/p. SHe has some issues with her RLE dragging and swelling. She denies chest pain. She admits to use of some diuretics but when asked about the name and dosage she said I shhould ask her pharmacist. She hasn't discussed this bothersome issues with her PCP over the course of the 3 months duration. Complaints Chief Complaint:: PT. C/O SHORTNESS OF BREATH AND RIGHT LEG HEAVINESS X A FEW MONTHS. PT. STATES "I FEEL LIKE I HAVE TO DRAG THAT LEG." COVID-19 Coronavirus risk:travel/contact w/high risk person: No Has patient experienced Coronavirus symptoms: Yes Coronavirus symptoms experienced: Shortness of Breath Source History Provided: Patient Mode of Arrival Mode of Arrival: Wheelchair Timing Onset of Chief Complaint: 07/23/21 Duration Duration: Months Context Onset:: At Rest PE Risk Factors:: Immobilization History of:: Asthma, COPD and CHF Prehospital Care:: None Modifying Factors Worsens:: Exertion Improves:: Rest PMH <JimmyTARIQADONAY - Last Filed: 09/24/21 10:38> PMH Past Medical History: Yes Past Medical History: Arthritis, Asthma, CHF, COPD and Hypertension Past Surgical History: Yes Surgical History: Family History History of Family Medical Conditions: Yes Family Medical History: Hypertension Social History Does patient currently use any type of tobacco product: No Have you used tobacco products in the last 12 months: No Type of Tobacco Use: None Does any household member use tobacco: No Alcohol Use: None Do you use any recreational Drugs:: No Lives With: Family Lives Where: Home Travel Risk Coronavirus risk:travel/contact w/high risk person: No Has patient experienced Coronavirus symptoms: Yes Coronavirus symptoms experienced: Shortness of Breath Infectious screening In the last 2 months have you had wt loss of >10#?: NO Have you had fever, night sweats or hemotysis?: No Have you traveled outside the country in the last 6 months?: No Isolation: Standard ROS <OMARTARIQKY LORENZO - Last Filed: 09/24/21 10:38> Review of Systems Constitutional: No Symptoms Reported Eyes: No Symptoms Reported ENTM: No Symptoms Reported Respiratoy: Short of Breath Cardiovascular: Edema (b/l lower exts.) Gastrointestinal/Abdominal: No Symptoms Reported Genitourinary: No Symptoms Reported Neurological: No Symptoms Reported Musculoskeletal: Leg (swelling and heavy) Integumentary: No Symptoms Reported Hematologic/Lymphatic: No Symptoms Reported Endocrine: No Symptoms Reported Psychiatric: No Symptoms Reported PE <FADUMO VENTURA - Last Filed: 09/24/21 10:38> Vital Signs Vitals: Temperature 98.4 F Pulse Rate 57 Respiratory Rate 30 Blood Pressure [Left Arm] 152/90 Blood Pressure 187/81 O2 Sat by Pulse Oximetry 100 General Limitations: No Limitations General Appearance: Alert, In No Apparent Distress and Obese Head Head Exam: Normal Inspection, Atraumatic and Normocephalic Eyes Eye exam: Normal Appearance and EOMI ENT ENT Exam: Normal Exam, Normal Oropharynx, Normal External Ear Exam and Mucous Membranes Moist Neck Neck Exam: Normal Inspection, Full ROM and Trachea Midline Chest Chest Inspection: Normal Inspection and Symmetric Chest Wall Rise Respiratory Respiratory Exam: Normal Lung Sounds Bilat Cardiovascular Cardiovascular Exam: Regular Rate, Normal Rhythm, Normal Heart Sounds, +S1 and +S2 Abdominal Exam Abdominal Exam: Normal Inspection, Normal Bowel Sounds and Soft Extremities Extremities Exam: Edema (b/l lower exts. ); negative Normal Inspection, Full ROM, Tenderness, Normal Capillary Refill, Joint Swelling and Calf Tenderness Back Back Exam: Normal Inspection Neurologic Neurological Exam: Alert and Oriented X3 Psychiatric Psychiatric Exam: Normal Affect and Normal Mood Skin Skin Exam: Intact <Nic Bobby - Last Filed: 09/21/21 12:19> Vital Signs Vitals: Temperature 98.4 F Pulse Rate 57 Respiratory Rate 30 Blood Pressure [Left Arm] 152/90 Blood Pressure 187/81 O2 Sat by Pulse Oximetry 100 COURSE <FADUMO VENTURA - Last Filed: 09/24/21 10:38> Treatment Treatment: Pt's. care was endorsed over to incoming provider (Dr. Bobby) at shift change. <Nic Bobby - Last Filed: 09/21/21 12:19> Treatment Treatment: 1003 - pt signed ovver to [place]. Currently in no distress at rest. Has been having exertional dyspnea past 2-3 months. Has O2 at home, recently increased from 2 up to 3 L. W/u shows mild anemia, Hgb 11.o. CMP acceptable, exc ept for elevated bicarb at 35. ABG on 2L, elevated pCO2, 66, good oxygenation, on O2. EKG without acute ischemic changes. BNP a bit up at 155, d-dimer elevated at 1.17. Tropinin elevated @ 90.4 (upper limit 60). CTA pursued, has degree of cardiomegaly. NO obvious PE. Pt was given 60 mg IV lasix, put out 2L urine. Discussed with covering hospitalist, Dr Doe, accepts observation admission. Will follow cardiac enzymes, schedule ECHO, and continue lasix BID. ROR <FADUMO VENTURA - Last Filed: 09/24/21 10:38> Labs Reviewed Result Diagrams: 09/24/21 03:56 09/24/21 03:56 Laboratory: WBC 5.9 X10^3/uL (3.6-10.0) 09/21/21 07:51 RBC 4.08 X10^6/uL (3.5-5.4) 09/21/21 07:51 Hgb 11.0 g/dL (12.0-16.0) L 09/21/21 07:51 Hct 33.1 % (36.0-47.0) L 09/21/21 07:51 MCV 81.0 fL (80.0-100.0) 09/21/21 07:51 MCH 26.9 pg (27.0-34.0) L 09/21/21 07:51 MCHC 33.2 g/dL (33.0-35.0) 09/21/21 07:51 RDW 15.4 % (11.6-16.5) 09/21/21 07:51 Plt Count 245 X10^3/uL (150.0-450.0) 09/21/21 07:51 MPV 7.8 fL (7.4-11.0) 09/21/21 07:51 Neut % (Auto) 53.6 % (42.0-75.0) 09/21/21 07:51 Lymph % (Auto) 31.4 % (21.0-51.0) 09/21/21 07:51 [place] % (Auto) 9.1 % (0.0-13.0) 09/21/21 07:51 Eos % (Auto) 5.0 % (0.9-2.9) H 09/21/21 07:51 Baso % (Auto) 0.9 % (0.2-1.0) 09/21/21 07:51 Neut # (Auto) 3.2 x10^3/uL (2.2-4.8) 09/21/21 07:51 Lymph # (Auto) 1.9 X10^3/uL (1.3-2.9) 09/21/21 07:51 [place] # (Auto) 0.5 x10^3/uL (0.3-0.8) 09/21/21 07:51 Eos # (Auto) 0.3 x10^3/uL (0.0-0.2) H 09/21/21 07:51 Baso # (Auto) 0.1 X10^3/uL (0.0-0.1) 09/21/21 07:51 Absolute Nucleated RBC 0.0 /100WBC 09/21/21 07:51 D-Dimer 1.17 ug/ml (0.0-0.57) H* 09/21/21 07:51 Sample Site Rrad 09/21/21 07:26 ABG pH 7.360 (7.35-7.45) 09/21/21 07:26 ABG pCO2 66.0 mmHg (35.0-45.0) H* 09/21/21 07:26 ABG pO2 141.0 mmHg (80.0-100.0) H 09/21/21 07:26 ABG HCO3 37.3 mmol/L (22-26) H* 09/21/21 07:26 ABG O2 Saturation 99.0 % (90-100) 09/21/21 07:26 ABG Base Excess 9.5 mmol/L (-2.0-2.0) H 09/21/21 07:26 Emil Test Pos 09/21/21 07:26 A-a Gradient 5.0 mmHg 09/21/21 07:26 FiO2 32.0 09/21/21 07:26 Blood Gas Comments Pt favio well elj 09/21/21 07:26 Sodium 143 mmol/L (136-145) 09/21/21 07:51 Corrected Sodium TNP 09/21/21 07:51 Potassium 4.1 mmol/L (3.5-5.1) 09/21/21 07:51 Chloride 104 mmol/L (98-107) 09/21/21 07:51 Carbon Dioxide 34.9 mmol/L (21-32) H 09/21/21 07:51 BUN 13 mg/dL (7-18) 09/21/21 07:51 Creatinine 0.76 mg/dL (0.55-1.02) 09/21/21 07:51 Est GFR (MDRD) Af Amer > 60 (>60) 09/21/21 07:51 Est GFR (MDRD) Non-Af > 60 (>60) 09/21/21 07:51 Glucose 100 mg/dL (65-99) H 09/21/21 07:51 Calcium 8.8 mg/dL (8.5-10.1) 09/21/21 07:51 Corrected Calcium 9.4 mg/dL (8.5-10.1) 09/21/21 07:51 Total Bilirubin 0.40 mg/dL (0.2-1.0) 09/21/21 07:51 AST 20 Units/L (15-37) 09/21/21 07:51 ALT 20 Units/L (12-78) 09/21/21 07:51 Alkaline Phosphatase 93 Units/L (46-116) 09/21/21 07:51 Creatine Kinase 149 Units/L (26-192) 09/21/21 07:51 CK-MB (CK-2) 1.1 ng/mL (0-4.0) 09/21/21 07:51 CK/CKMB % Calc 0.7 % (<4) 09/21/21 07:51 Troponin I High Sens 90.4 ng/L (4.0-60.0) H* 09/21/21 07:51 B-Natriuretic Peptide 155 pg/mL (0-79) H 09/21/21 07:51 Total Protein 8.2 g/dL (6.4-8.2) 09/21/21 07:51 Albumin 3.3 g/dL (3.4-5.0) L 09/21/21 07:51 Globulin 4.9 g/dL (2.5-4.5) H 09/21/21 07:51 Albumin/Globulin Ratio 0.7 Ratio (1.1-2.1) L 09/21/21 07:51 Specimen Type Catherized urine 09/21/21 08:20 Urine Color Pale yellow (YELLOW) 09/21/21 08:20 Urine Appearance Clear (CLEAR) 09/21/21 08:20 Urine pH 6.0 (5.0 - 8.0) 09/21/21 08:20 Ur Specific [place] 1.015 (1.000-1.030) 09/21/21 08:20 Urine Protein Negative (NEGATIVE) 09/21/21 08:20 Urine Glucose (UA) Negative (NEGATIVE) 09/21/21 08:20 Urine Ketones Negative (NEGATIVE) 09/21/21 08:20 Urine Blood Negative (NEGATIVE) 09/21/21 08:20 Urine Nitrite Negative (NEGATIVE) 09/21/21 08:20 Urine Bilirubin Negative (NEGATIVE) 09/21/21 08:20 Urine Urobilinogen Normal (NORMAL) 09/21/21 08:20 Ur Leukocyte Esterase Negative (NEGATIVE) 09/21/21 08:20 SARS-CoV-2 (PCR) Negative (NEGATIVE) 09/21/21 11:04 <Nic Bobby - Last Filed: 09/21/21 12:19> Labs Reviewed Laboratory Results Reviewed?: Yes Laboratory: WBC 5.9 X10^3/uL (3.6-10.0) 09/21/21 07:51 RBC 4.08 X10^6/uL (3.5-5.4) 09/21/21 07:51 Hgb 11.0 g/dL (12.0-16.0) L 09/21/21 07:51 Hct 33.1 % (36.0-47.0) L 09/21/21 07:51 MCV 81.0 fL (80.0-100.0) 09/21/21 07:51 MCH 26.9 pg (27.0-34.0) L 09/21/21 07:51 MCHC 33.2 g/dL (33.0-35.0) 09/21/21 07:51 RDW 15.4 % (11.6-16.5) 09/21/21 07:51 Plt Count 245 X10^3/uL (150.0-450.0) 09/21/21 07:51 MPV 7.8 fL (7.4-11.0) 09/21/21 07:51 Neut % (Auto) 53.6 % (42.0-75.0) 09/21/21 07:51 Lymph % (Auto) 31.4 % (21.0-51.0) 09/21/21 07:51 [place] % (Auto) 9.1 % (0.0-13.0) 09/21/21 07:51 Eos % (Auto) 5.0 % (0.9-2.9) H 09/21/21 07:51 Baso % (Auto) 0.9 % (0.2-1.0) 09/21/21 07:51 Neut # (Auto) 3.2 x10^3/uL (2.2-4.8) 09/21/21 07:51 Lymph # (Auto) 1.9 X10^3/uL (1.3-2.9) 09/21/21 07:51 [place] # (Auto) 0.5 x10^3/uL (0.3-0.8) 09/21/21 07:51 Eos # (Auto) 0.3 x10^3/uL (0.0-0.2) H 09/21/21 07:51 Baso # (Auto) 0.1 X10^3/uL (0.0-0.1) 09/21/21 07:51 Absolute Nucleated RBC 0.0 /100WBC 09/21/21 07:51 D-Dimer 1.17 ug/ml (0.0-0.57) H* 09/21/21 07:51 Sample Site Rrad 09/21/21 07:26 ABG pH 7.360 (7.35-7.45) 09/21/21 07:26 ABG pCO2 66.0 mmHg (35.0-45.0) H* 09/21/21 07:26 ABG pO2 141.0 mmHg (80.0-100.0) H 09/21/21 07:26 ABG HCO3 37.3 mmol/L (22-26) H* 09/21/21 07:26 ABG O2 Saturation 99.0 % (90-100) 09/21/21 07:26 ABG Base Excess 9.5 mmol/L (-2.0-2.0) H 09/21/21 07:26 Emil Test Pos 09/21/21 07:26 A-a Gradient 5.0 mmHg 09/21/21 07:26 FiO2 32.0 09/21/21 07:26 Blood Gas Comments Pt favio well elj 09/21/21 07:26 Sodium 143 mmol/L (136-145) 09/21/21 07:51 Corrected Sodium TNP 09/21/21 07:51 Potassium 4.1 mmol/L (3.5-5.1) 09/21/21 07:51 Chloride 104 mmol/L (98-107) 09/21/21 07:51 Carbon Dioxide 34.9 mmol/L (21-32) H 09/21/21 07:51 BUN 13 mg/dL (7-18) 09/21/21 07:51 Creatinine 0.76 mg/dL (0.55-1.02) 09/21/21 07:51 Est GFR (MDRD) Af Amer > 60 (>60) 09/21/21 07:51 Est GFR (MDRD) Non-Af > 60 (>60) 09/21/21 07:51 Glucose 100 mg/dL (65-99) H 09/21/21 07:51 Calcium 8.8 mg/dL (8.5-10.1) 09/21/21 07:51 Corrected Calcium 9.4 mg/dL (8.5-10.1) 09/21/21 07:51 Total Bilirubin 0.40 mg/dL (0.2-1.0) 09/21/21 07:51 AST 20 Units/L (15-37) 09/21/21 07:51 ALT 20 Units/L (12-78) 09/21/21 07:51 Alkaline Phosphatase 93 Units/L (46-116) 09/21/21 07:51 Creatine Kinase 149 Units/L (26-192) 09/21/21 07:51 CK-MB (CK-2) 1.1 ng/mL (0-4.0) 09/21/21 07:51 CK/CKMB % Calc 0.7 % (<4) 09/21/21 07:51 Troponin I High Sens 90.4 ng/L (4.0-60.0) H* 09/21/21 07:51 B-Natriuretic Peptide 155 pg/mL (0-79) H 09/21/21 07:51 Total Protein 8.2 g/dL (6.4-8.2) 09/21/21 07:51 Albumin 3.3 g/dL (3.4-5.0) L 09/21/21 07:51 Globulin 4.9 g/dL (2.5-4.5) H 09/21/21 07:51 Albumin/Globulin Ratio 0.7 Ratio (1.1-2.1) L 09/21/21 07:51 Specimen Type Catherized urine 09/21/21 08:20 Urine Color Pale yellow (YELLOW) 09/21/21 08:20 Urine Appearance Clear (CLEAR) 09/21/21 08:20 Urine pH 6.0 (5.0 - 8.0) 09/21/21 08:20 Ur Specific [place] 1.015 (1.000-1.030) 09/21/21 08:20 Urine Protein Negative (NEGATIVE) 09/21/21 08:20 Urine Glucose (UA) Negative (NEGATIVE) 09/21/21 08:20 Urine Ketones Negative (NEGATIVE) 09/21/21 08:20 Urine Blood Negative (NEGATIVE) 09/21/21 08:20 Urine Nitrite Negative (NEGATIVE) 09/21/21 08:20 Urine Bilirubin Negative (NEGATIVE) 09/21/21 08:20 Urine Urobilinogen Normal (NORMAL) 09/21/21 08:20 Ur Leukocyte Esterase Negative (NEGATIVE) 09/21/21 08:20 SARS-CoV-2 (PCR) Negative (NEGATIVE) 09/21/21 11:04 Other Results Comments: See discussion of labs in "Course" EKG Rate: 55 [place]: Normal Rhythm: SB Block: LBBB (incomplete) Hypertrophy: None ST: Nonsp Opioid <ADEWUNMI SOBOWALE - Last Filed: 09/24/21 10:38> Opioid Risk Tool Age (Aristeo box if 16-45): No History of Preadolescent Sexual Abuse: No Total: 0 Total Score Risk Category: Low Risk Copyright: Negrito LAZAR predicting aberrant behaviors <Nic Bobby - Last Filed: 09/21/21 12:19> Opioid Risk Tool Total: 0 Total Score Risk Category: Low Risk <ADEWUNMI SOBOWALE - Last Filed: 09/24/21 10:38> Diagnosis Discharge Problem: Exertional dyspnea, Elevated troponin
[2021-09-21 08:08] LABS: BASOPHILS # (AUTO) 0.1 X10^3/uL (0.0-0.1); BASOPHILS % (AUTO) 0.9 % (0.2-1.0); EOSINOPHILS # (AUTO) 0.3 x10^3/uL (0.0-0.2); HEMATOCRIT 33.1 % (36.0-47.0); LYMPHOCYTES # (AUTO) 1.9 X10^3/uL (1.3-2.9); LYMPHOCYTES % (AUTO) 31.4 % (21.0-51.0); MEAN CORPUSCULAR HEMOGLOBIN 26.9 pg (27.0-34.0); MEAN CORPUSCULAR HGB CONC 33.2 g/dL (33.0-35.0); MEAN PLATELET VOLUME 7.8 fL (7.4-11.0); MONOCYTES # (AUTO) 0.5 x10^3/uL (0.3-0.8); MONOCYTES % (AUTO) 9.1 % (0.0-13.0); NEUTROPHILS # (AUTO) 3.2 x10^3/uL (2.2-4.8); NEUTROPHILS % (AUTO) 53.6 % (42.0-75.0); RED BLOOD COUNT 4.08 X10^6/uL (3.5-5.4); RED CELL DISTRIBUTION WIDTH 15.4 % (11.6-16.5); WHITE BLOOD COUNT 5.9 X10^3/uL (3.6-10.0)
[2021-09-21 08:20] LABS: ALANINE AMINOTRANSFERASE 20 Units/L (12-78); ALBUMIN 3.3 g/dL (3.4-5.0); ALKALINE PHOSPHATASE 93 Units/L (46-116); ASPARTATE AMINO TRANSFERASE 20 Units/L (15-37); BLOOD UREA NITROGEN 13 mg/dL (7-18); CALCIUM 8.8 mg/dL (8.5-10.1); CARBON DIOXIDE 34.9 mmol/L (21-32); CHLORIDE 104 mmol/L (98-107); COR CA(FOR HYPOALB) 9.4 mg/dL (8.5-10.1); CREATININE 0.76 mg/dL (0.55-1.02); SODIUM 143 mmol/L (136-145); TOTAL PROTEIN 8.2 g/dL (6.4-8.2); eGFR NON BLACK RACES > 60 (>60)
--- NOTE | 2021-09-21 08:31 | RAD ---
HISTORYShortness of breathSTUDYChest AP [id number]/2021FINDINGSHear t is enlarged. No congestive heart failure is noted. No acute alveolar infiltrates or pleural effusions are identified. Bony thorax is unremarkable.IMPRESSIONCardiomegaly without congestive heart failureNo infiltratesElectronically signed by: GAYE TONG (Sep 21, 2021 08:29:55)
--- NOTE | 2021-09-21 08:32 | RAD ---
HISTORYRight hip painSTUDYRight hip two viewsCOMPARISONNoneFINDINGSThe examination is limited by the patient's body habitus. There is marked degenerative joint space narrowing present. No definite joint erosions are identified. No definite fracture, lytic, or blastic lesion is identified. If further evaluation of the joint space is required CT would be of further diagnostic value.IMPRESSIONLimited examination due to the patient's body habitusSevere degenerative joint space narrowing right hip jointElectronically signed by: GAYE TOGN (Sep 21, 2021 08:31:33)
[2021-09-21 08:39] LABS: BILIRUBIN,URINE NEGATIVE (NEGATIVE); BLOOD/HEMOGLOBIN,URINE NEGATIVE (NEGATIVE); GLUCOSE, URINE NEGATIVE (NEGATIVE); KETONES,URINE NEGATIVE (NEGATIVE); LEUKOCYTE ESTERASE ,URINE NEGATIVE (NEGATIVE); NITRITES,URINE NEGATIVE (NEGATIVE); PROTEIN,URINE NEGATIVE (NEGATIVE); UROBILINOGEN,URINE NORMAL (NORMAL)
--- NOTE | 2021-09-21 08:41 | RAD ---
HISTORYRight knee painSTUDYRight knee two viewsCOMPARISONNoneFINDINGSThere is severe degenerative medial compartment narrowing present. No fracture, lytic, or blastic lesion is identified. No erosive arthritis or soft tissue abnormality is identified. No periarticular soft tissue abnormalities identified.IMPRESSIONSevere degenerative joint space narrowing involving the medial compartment.Electronically signed by: GAYE TONG (Sep 21, 2021 08:39:35)
[2021-09-21 08:53] LABS: APPEARANCE,URINE CLEAR (CLEAR); COLOR,URINE PALE YELLOW (YELLOW)
[2021-09-21 09:13] LABS: CKMB % 0.7 % (<4); CREATINE KINASE MB 1.1 ng/mL (0-4.0)
--- NOTE | 2021-09-21 09:37 | CT ---
HISTORYDYSPNEA X MTHS, ELEVATED D-DIMERSTUDYCTA CHESTCOMPARISONChest radiograph from same day.TECHNIQUECTA chest protocol with axial images from the thoracic inlet to upper abdomen with IV contrast. Sagittal and coronal reformats and MIP images were created. Automated exposure control was utilized.FINDINGSLimited evaluation of the thyroid due to streak artifact and soft tissue attenuation from the chest wall in shoulders. There is suboptimal signal to noise and mild motion artifact limiting evaluation.The thoracic aorta appears patent without significant atherosclerosis or discernible injury. Pulmonary artery is mildly enlarged at the trunk measuring 36 mm medial-lateral image 58 series 4. No central PE. Limited evaluation for peripheral PE due to suboptimal signal to noise and motion artifact. The heart is moderately enlarged. No pericardial effusion. Visualized upper abdomen appears benign. Status post cholecystectomy. No acute osseous abnormality.The trachea and mainstem bronchi appear patent. Mild scattered subsegmental atelectasis. Mild COPD. No consolidation or segmental lung collapse. No pleural effusion or pneumothorax.IMPRESSIONNo central PE. Limited evaluation for peripheral PE.Moderate cardiomegaly. Mildly dilated pulmonary artery consistent with pulmonary artery hypertension. Mild COPD.Electronically signed by: Lloyd Bartlett (Sep 21, 2021 09:35:24)
[2021-09-21] MEDS ORDERED: ULTRAM PO PRN (11:58)
[2021-09-21] MEDS ORDERED: VENTOLIN or PROAIR HFA INH PRN (11:58)
[2021-09-21] MEDS: PROTONIX TAB 40 MG PO SCH (13:04)
[2021-09-21] MEDS: ASPIRIN EC 81 MG PO SCH (13:04)
[2021-09-21] MEDS: SYNTHROID 50 mcg TAB PO SCH (13:04)
[2021-09-21 13:26] LABS: CREATINE KINASE MB 1.2 ng/mL (0-4.0)
[2021-09-21] MEDS: DIOVAN TAB 80 MG PO SCH (14:30)
[2021-09-21] MEDS: NORMODYNE TAB 200 MG PO SCH ×2 (14:31→20:15)
[2021-09-21] MEDS: LASIX IVP SCH (16:22)
[2021-09-21] MEDS: LOVENOX INJ 40 MG SYR SC SCH (16:34)
--- NOTE | 2021-09-21 17:28 | DR.H&P ---
H&P - History & Physical for Day of: H&P Date: 09/21/21 - Chief Complaint Chief Complaint: SOB, LOWER LEG SWELLING - History of Present Illness History of Present Illness: PT IS 61 BF ER ADMISSION WITH REPORTS OF SOB AND RLE SWELLING. PT REPORTS SOB HAS WORSENED OVER PAST 3 MOS. PT HAS PMH OF HTN, OA, MO, COPD. PT ADMITTED FOR TREATMENT OF ACUTE ILLNESS. - Past Medical History Past Medical History: Anxiety, Arthritis, Asthma, CHF, COPD, Hypertension - Past Surgical History Surgical History: - Family History Family Medical History: Hypertension - Social History Does patient currently use any type of tobacco product: No Have you used tobacco products in the last 12 months: No Type of Tobacco Use: None Does any household member use tobacco: No Alcohol Use: None Drug Use: None Prescription drug monitoring program results: PDMP reviewed and no concerns identified - Medications Home Medications: No Known Drug Allergies Allergy (Verified 09/21/21 07:18) CONTINUE taking the following medications hydrocodone-acetaminophen 10 - 325 tab PO PRN PRN 09/21/21 [History] valsartan 80 mg PO DAILY 09/21/21 [History] - Review of Systems Constitutional: Malaise Eyes: No Symptoms Reported Respiratory: Shortness of Breath, SOB with Excertion Cardiovascular: Edema Gastrointestinal: No Symptoms Reported Genitourinary: No Symptoms Reported Musculoskeletal: Back Pain, Leg Pain Skin: No Symptoms Reported Neurological: No Symptoms Reported - Physical Exam Vital Signs: Temperature 97.5 F Pulse Rate [Apical] 63 Pulse Rate 60 Respiratory Rate 20 Blood Pressure [Right Arm] 139/74 Blood Pressure [Left Arm] 152/90 Blood Pressure 158/72 O2 Sat by Pulse Oximetry 97 Oriented: Normal Eyes: Normal Ear: Normal Nose: Normal Throat: Normal Respiratory: Diminished Throughout, Wheezes Throughout Cardiovascular: Normal, Edema : Normal Auscultation: Bowel Sounds: Normal, Absent Tenderness: Normal Skin: Decreased Turgur Musculoskeletal: Right, Left, Leg, Back:Lumbar, Swelling, Tender Mood Description: Anxious Affect: Anxious Speech Pattern: Clear, Appropriate - Assessment/Plan (1) Elevated troponin Status: Acute Plan: ADMIT, SERIAL CE AND EKG. CTA CHEST OBTAIN IN ER, ECHO OBTAINED. IV LASIX WITH STRICT I&OS. BP CONTROL, VERIFY HOME MEDICATION. ASSESS FOR CHEST PAIN COMPLAINTS, AM LABS. BS MONITORING (2) COPD with acute exacerbation Status: Acute (3) SOB (shortness of breath) Status: Acute (4) Hypertension Status: Acute (5) Morbid obesity Status: Acute (6) Pain of left lower leg Status: Acute - Allergies Allergies/Adverse Reactions: Allergies Allergy/AdvReac Type Severity Reaction Status Date / Time No Known Drug Allergies Allergy Verified 09/21/21 07:18
[2021-09-21] MEDS ORDERED: NS 500 ML IV 500 ML IV PRN (17:37)
[2021-09-21] MEDS ORDERED: NS 500 ML IV 500 ML IV ONE (17:41)
[2021-09-21] MEDS: ROCEPHIN VIAL 1 GRAM 1 G in NS 100 ML IV 100 ML IV SCH (17:54)
[2021-09-21 18:12] LABS: CKMB % 0.9 % (<4); CREATINE KINASE MB 1.1 ng/mL (0-4.0)
[2021-09-21] MEDS: PROVENTIL NEB TX 0.083% 2.5MG/ 3ML NEB PRN (20:30)
[2021-09-22 01:07] LABS: CREATINE KINASE 99 Units/L (26-192); CREATINE KINASE MB < 1.0 ng/mL (0-4.0)
[2021-09-22 05:12] LABS: BASOPHILS % (AUTO) 0.4 % (0.2-1.0); EOSINOPHILS # (AUTO) 0.3 x10^3/uL (0.0-0.2); EOSINOPHILS % (AUTO) 5.5 % (0.9-2.9); HEMATOCRIT 31.2 % (36.0-47.0); HEMOGLOBIN 10.2 g/dL (12.0-16.0); LYMPHOCYTES # (AUTO) 1.7 X10^3/uL (1.3-2.9); LYMPHOCYTES % (AUTO) 30.9 % (21.0-51.0); MEAN CORPUSCULAR HEMOGLOBIN 26.5 pg (27.0-34.0); MEAN CORPUSCULAR HGB CONC 32.6 g/dL (33.0-35.0); MEAN CORPUSCULAR VOLUME 81.2 fL (80.0-100.0); MEAN PLATELET VOLUME 7.9 fL (7.4-11.0); MONOCYTES # (AUTO) 0.6 x10^3/uL (0.3-0.8); MONOCYTES % (AUTO) 9.8 % (0.0-13.0); NEUTROPHILS % (AUTO) 53.4 % (42.0-75.0); RED BLOOD COUNT 3.84 X10^6/uL (3.5-5.4); RED CELL DISTRIBUTION WIDTH 15.4 % (11.6-16.5); WHITE BLOOD COUNT 5.6 X10^3/uL (3.6-10.0)
[2021-09-22 05:23] LABS: ALANINE AMINOTRANSFERASE 13 Units/L (12-78); ALBUMIN 2.8 g/dL (3.4-5.0); ALKALINE PHOSPHATASE 83 Units/L (46-116); ASPARTATE AMINO TRANSFERASE 10 Units/L (15-37); BLOOD UREA NITROGEN 15 mg/dL (7-18); CALCIUM 8.6 mg/dL (8.5-10.1); CHLORIDE 103 mmol/L (98-107); COR CA(FOR HYPOALB) 9.6 mg/dL (8.5-10.1); CREATININE 1.01 mg/dL (0.55-1.02); SODIUM 142 mmol/L (136-145); TOTAL PROTEIN 7.2 g/dL (6.4-8.2); eGFR NON BLACK RACES 59 (>60)
[2021-09-22] MEDS: NORCO 10/325 TAB PO PRN ×3 (08:21→19:28)
[2021-09-22] MEDS: PROVENTIL NEB TX 0.083% 2.5MG/ 3ML NEB PRN ×2 (08:30→19:21)
[2021-09-22 08:48] LABS: CKMB % 1.1 % (<4); CREATINE KINASE 91 Units/L (26-192); CREATINE KINASE MB < 1.0 ng/mL (0-4.0)
[2021-09-22] MEDS: ROCEPHIN VIAL 1 GRAM 1 G in NS 100 ML IV 100 ML IV SCH (09:02)
[2021-09-22] MEDS: LASIX IVP SCH ×2 (09:06→16:16)
[2021-09-22] MEDS: ASPIRIN EC 81 MG PO SCH (09:06)
[2021-09-22] MEDS: DIOVAN TAB 80 MG PO SCH (09:07)
[2021-09-22] MEDS: SYNTHROID 50 mcg TAB PO SCH (09:07)
[2021-09-22] MEDS: PROTONIX TAB 40 MG PO SCH (09:07)
[2021-09-22] MEDS: CARDIZEM CD 180 MG 24-HR PO SCH (09:09)
[2021-09-22 09:46] LABS: CKMB % 1.1 % (<4); CREATINE KINASE 95 Units/L (26-192); CREATINE KINASE MB < 1.0 ng/mL (0-4.0)
[2021-09-22] MEDS: LOVENOX INJ 40 MG SYR SC SCH (09:51)
[2021-09-22] MEDS: NORMODYNE TAB 200 MG PO SCH ×2 (09:52→20:43)
[2021-09-22] MEDS ORDERED: KLOR-CON PO PRN (09:56)
[2021-09-22] MEDS ORDERED: POTASSIUM CHL 60 MEQ/NS 0.45% 500 ML IV PRN (09:56)
[2021-09-22] MEDS ORDERED: K-DUR TAB 20 MEQ PO PRN (09:56)
[2021-09-22] MEDS ORDERED: MICRO K EXTEN CAP 10 MEQ PO PRN (09:56)
[2021-09-22] MEDS ORDERED: K-RIDER 10 MEQ/NS 100 ML 10 MEQ/100 ML BAG IV PRN (09:56)
[2021-09-22] MEDS ORDERED: POTASSIUM CHL 40 MEQ/NS 0.45% 500 ML IV PRN (09:56)
[2021-09-22] MEDS ORDERED: POTASSIUM CHLORIDE LIQ 20 MEQ UDC PO PRN (09:56)
--- NOTE | 2021-09-22 13:08 | VAS ---
HISTORY: Dyspnea. Extremity pain, swelling, and edemaStudy: Bilateral lower extremity Doppler venous ultrasound.TECHNIQUE: Multiple stevens scale and color flow Doppler images of the deep venous system were obtained of the [right and left] lower extremity.FINDINGS: The deep venous system of the [right and left lower extremities were] evaluated from the level of the common femoral veins through the popliteal veins, bilaterally. Normal color flow and augmentation can be observed. In addition, normal compression is seen throughout the deep venous system. [No Brown's cyst is seen].IMPRESSION:1. Negative examination for DVT.Electronically signed by: KIA CANAS III (Sep 22, 2021 13:07:21)
[2021-09-23 05:20] LABS: BASOPHILS % (AUTO) 0.5 % (0.2-1.0); EOSINOPHILS # (AUTO) 0.3 x10^3/uL (0.0-0.2); EOSINOPHILS % (AUTO) 6.3 % (0.9-2.9); HEMATOCRIT 31.4 % (36.0-47.0); HEMOGLOBIN 10.1 g/dL (12.0-16.0); LYMPHOCYTES # (AUTO) 1.4 X10^3/uL (1.3-2.9); MEAN CORPUSCULAR HEMOGLOBIN 26.4 pg (27.0-34.0); MEAN CORPUSCULAR HGB CONC 32.1 g/dL (33.0-35.0); MEAN CORPUSCULAR VOLUME 82.2 fL (80.0-100.0); MONOCYTES # (AUTO) 0.5 x10^3/uL (0.3-0.8); MONOCYTES % (AUTO) 10.1 % (0.0-13.0); NEUTROPHILS % (AUTO) 56.1 % (42.0-75.0); RED BLOOD COUNT 3.82 X10^6/uL (3.5-5.4); RED CELL DISTRIBUTION WIDTH 15.4 % (11.6-16.5); WHITE BLOOD COUNT 5.3 X10^3/uL (3.6-10.0)
[2021-09-23 05:28] LABS: ALANINE AMINOTRANSFERASE 15 Units/L (12-78); ALBUMIN 2.7 g/dL (3.4-5.0); ALKALINE PHOSPHATASE 76 Units/L (46-116); ASPARTATE AMINO TRANSFERASE 13 Units/L (15-37); BLOOD UREA NITROGEN 20 mg/dL (7-18); CALCIUM 8.6 mg/dL (8.5-10.1); CARBON DIOXIDE 39.2 mmol/L (21-32); CHLORIDE 104 mmol/L (98-107); COR CA(FOR HYPOALB) 9.6 mg/dL (8.5-10.1); CREATININE 1.13 mg/dL (0.55-1.02); SODIUM 143 mmol/L (136-145); eGFR NON BLACK RACES 52 (>60)
[2021-09-23] MEDS: LOVENOX INJ 40 MG SYR SC SCH (08:47)
[2021-09-23] MEDS: ASPIRIN EC 81 MG PO SCH (08:48)
[2021-09-23] MEDS: PROTONIX TAB 40 MG PO SCH (08:48)
[2021-09-23] MEDS: CARDIZEM CD 180 MG 24-HR PO SCH (08:48)
[2021-09-23] MEDS: DIOVAN TAB 80 MG PO SCH (08:48)
[2021-09-23] MEDS: SYNTHROID 50 mcg TAB PO SCH (08:48)
[2021-09-23] MEDS: LASIX PO SCH ×2 (08:51→16:12)
[2021-09-23] MEDS: NORMODYNE TAB 200 MG PO SCH ×2 (08:51→20:03)
--- NOTE | 2021-09-23 09:21 | RAD ---
HISTORYSOBSTUDYCHEST, 1 [id number]/2022FINDINGSThe cardiomediastinal silhouette is widened but stable. Similar pulmonary vascular congestion. No acute airspace disease. No pneumothorax or effusion. The bony thorax appears intact.IMPRESSIONSimilar congestion without edema or pneumonia.Electronically signed by: GAYE TONG (Sep 23, 2021 09:19:09)
[2021-09-23] MEDS: PROVENTIL NEB TX 0.083% 2.5MG/ 3ML NEB PRN (09:30)
--- NOTE | 2021-09-23 10:54 | PCM.PROG ---
Progress Note Progress Note for Day of Date of Exam: 09/23/21 Subjective Subjective: Pt is a 61 year old female admitted for CHF exacerbation, Elevated troponin, and COPD exacerbation. This morning patient is feeling significantly better and wants to go home. She admits that she has lasix at home but has not been regularly taking it. She does use home oxygen at night, around 2L nasal cannula. Labs/imaging: Wbc 5.3, Hgb 10.1, Plt 245, Na 143, K 4.1, Creatinine 1.13, Glucose 103. She is currently on IV Lasix 40mg BID, will change to 40mg PO BID. Her echo showed ejection fraction of 47%. Cardiac enzymes trended down. She will need cardiology follow up outpatient. CXR was obtained that revealed: similar congestion without edema or pneumonia. Will wean supplemental oxygen as tolerated. Otherwise continue with current treatment plan. Continue to closely monitor and follow up labs/imaging in the morning. Past Medical Family Social History Past Med/Fam/Surg Hx: No changes since H&P Allergies: Allergies No Known Drug Allergies Allergy (Verified 09/21/21 07:18) Vital Signs and I&O's Vital Signs: Temperature 98.5 F Pulse Rate [Right Brachial] 62 Pulse Rate [Apical] 65 Pulse Rate 62 Respiratory Rate 20 Blood Pressure [Right Arm] 131/61 Blood Pressure [Left Arm] 152/90 Blood Pressure 158/72 O2 Sat by Pulse Oximetry 99 Intake and Output: Intake & Output 09/20/21 09/21/21 09/22/21 09/23/21 23:59 23:59 23:59 23:59 Intake Total 880 / 880 1910 / 1910 160 / 160 Output Total 5550 / 5550 2125 / 2125 200 / 200 Balance -4670 / -4670 -215 / -215 -40 / -40 Physical Exam Oriented: Normal Eyes: Normal Ear: Normal Nose: Normal Throat: Normal Respiratory: Diminished Cardiovascular: Normal and Edema : Normal Auscultation: Bowel Sounds: Normal and Absent Tenderness: Normal Skin: Decreased Turgur Musculoskeletal: Right, Left, Leg, Back:Lumbar, Swelling and Tender Mood Description: Anxious Affect: Anxious Speech Pattern: Clear and Appropriate Laboratory and Diagnostics Result Diagrams: 09/24/21 03:56 09/24/21 03:56 Labs: Laboratory WBC 5.3 X10^3/uL (3.6-10.0) 09/23/21 04:10 RBC 3.82 X10^6/uL (3.5-5.4) 09/23/21 04:10 Hgb 10.1 g/dL (12.0-16.0) L 09/23/21 04:10 Hct 31.4 % (36.0-47.0) L 09/23/21 04:10 MCV 82.2 fL (80.0-100.0) 09/23/21 04:10 MCH 26.4 pg (27.0-34.0) L 09/23/21 04:10 MCHC 32.1 g/dL (33.0-35.0) L 09/23/21 04:10 RDW 15.4 % (11.6-16.5) 09/23/21 04:10 Plt Count 245 X10^3/uL (150.0-450.0) 09/23/21 04:10 MPV 8.0 fL (7.4-11.0) 09/23/21 04:10 Neut % (Auto) 56.1 % (42.0-75.0) 09/23/21 04:10 Lymph % (Auto) 27.0 % (21.0-51.0) 09/23/21 04:10 [place] % (Auto) 10.1 % (0.0-13.0) 09/23/21 04:10 Eos % (Auto) 6.3 % (0.9-2.9) H 09/23/21 04:10 Baso % (Auto) 0.5 % (0.2-1.0) 09/23/21 04:10 Neut # (Auto) 3.0 x10^3/uL (2.2-4.8) 09/23/21 04:10 Lymph # (Auto) 1.4 X10^3/uL (1.3-2.9) 09/23/21 04:10 [place] # (Auto) 0.5 x10^3/uL (0.3-0.8) 09/23/21 04:10 Eos # (Auto) 0.3 x10^3/uL (0.0-0.2) H 09/23/21 04:10 Baso # (Auto) 0.0 X10^3/uL (0.0-0.1) 09/23/21 04:10 Absolute Nucleated RBC 0.1 /100WBC 09/23/21 04:10 D-Dimer 1.17 ug/ml (0.0-0.57) H* 09/21/21 07:51 Sample Site Rrad 09/21/21 07:26 ABG pH 7.360 (7.35-7.45) 09/21/21 07:26 ABG pCO2 66.0 mmHg (35.0-45.0) H* 09/21/21 07:26 ABG pO2 141.0 mmHg (80.0-100.0) H 09/21/21 07:26 ABG HCO3 37.3 mmol/L (22-26) H* 09/21/21 07:26 ABG O2 Saturation 99.0 % (90-100) 09/21/21 07:26 ABG Base Excess 9.5 mmol/L (-2.0-2.0) H 09/21/21 07:26 Emil Test Pos 09/21/21 07:26 A-a Gradient 5.0 mmHg 09/21/21 07:26 FiO2 32.0 09/21/21 07:26 Blood Gas Comments Pt favio well elj 09/21/21 07:26 Sodium 143 mmol/L (136-145) 09/23/21 04:10 Corrected Sodium TNP 09/23/21 04:10 Potassium 4.1 mmol/L (3.5-5.1) 09/23/21 04:10 Chloride 104 mmol/L (98-107) 09/23/21 04:10 Carbon Dioxide 39.2 mmol/L (21-32) H 09/23/21 04:10 BUN 20 mg/dL (7-18) H 09/23/21 04:10 Creatinine 1.13 mg/dL (0.55-1.02) H 09/23/21 04:10 Est GFR (MDRD) Af Amer > 60 (>60) 09/23/21 04:10 Est GFR (MDRD) Non-Af 52 (>60) L 09/23/21 04:10 Glucose 103 mg/dL (65-99) H 09/23/21 04:10 POC Glucose (mg/dL) 105 mg/dL (65-99) H 09/21/21 16:21 Calcium 8.6 mg/dL (8.5-10.1) 09/23/21 04:10 Corrected Calcium 9.6 mg/dL (8.5-10.1) 09/23/21 04:10 Total Bilirubin 0.30 mg/dL (0.2-1.0) 09/23/21 04:10 AST 13 Units/L (15-37) L 09/23/21 04:10 ALT 15 Units/L (12-78) 09/23/21 04:10 Alkaline Phosphatase 76 Units/L (46-116) 09/23/21 04:10 Creatine Kinase 95 Units/L (26-192) 09/22/21 09:13 CK-MB (CK-2) < 1.0 ng/mL (0-4.0) 09/22/21 09:13 CK/CKMB % Calc 1.1 % (<4) 09/22/21 09:13 Troponin I High Sens 79.2 ng/L (4.0-60.0) H* 09/22/21 09:13 B-Natriuretic Peptide 155 pg/mL (0-79) H 09/21/21 07:51 Total Protein 7.0 g/dL (6.4-8.2) 09/23/21 04:10 Albumin 2.7 g/dL (3.4-5.0) L 09/23/21 04:10 Globulin 4.3 g/dL (2.5-4.5) 09/23/21 04:10 Albumin/Globulin Ratio 0.6 Ratio (1.1-2.1) L 09/23/21 04:10 Specimen Type Catherized urine 09/21/21 08:20 Urine Color Pale yellow (YELLOW) 09/21/21 08:20 Urine Appearance Clear (CLEAR) 09/21/21 08:20 Urine pH 6.0 (5.0 - 8.0) 09/21/21 08:20 Ur Specific [place] 1.015 (1.000-1.030) 09/21/21 08:20 Urine Protein Negative (NEGATIVE) 09/21/21 08:20 Urine Glucose (UA) Negative (NEGATIVE) 09/21/21 08:20 Urine Ketones Negative (NEGATIVE) 09/21/21 08:20 Urine Blood Negative (NEGATIVE) 09/21/21 08:20 Urine Nitrite Negative (NEGATIVE) 09/21/21 08:20 Urine Bilirubin Negative (NEGATIVE) 09/21/21 08:20 Urine Urobilinogen Normal (NORMAL) 09/21/21 08:20 Ur Leukocyte Esterase Negative (NEGATIVE) 09/21/21 08:20 SARS-CoV-2 (PCR) Negative (NEGATIVE) 09/21/21 11:04 Plan (1) Elevated troponin: Status: Acute Plan: ADMIT, SERIAL CE AND EKG CTA CHEST OBTAIN IN ER, ECHO OBTAINED IV LASIX WITH STRICT I&OS BP CONTROL, VERIFY HOME MEDICATION ASSESS FOR CHEST PAIN COMPLAINTS, AM LABS BS MONITORING (2) COPD with acute exacerbation: Status: Acute (3) SOB (shortness of breath): Status: Acute (4) Hypertension: Status: Acute (5) Morbid obesity: Status: Acute (6) Pain of left lower leg: Status: Acute
[2021-09-23] MEDS: NORCO 10/325 TAB PO PRN (19:45)
[2021-09-24 04:50] LABS: BLOOD UREA NITROGEN 19 mg/dL (7-18); CARBON DIOXIDE 39.9 mmol/L (21-32); CHLORIDE 102 mmol/L (98-107); COR NA(FOR HYPERGLY) 143 mmol/L (136-145); SODIUM 143 mmol/L (136-145); eGFR NON BLACK RACES > 60 (>60)
[2021-09-24 04:51] LABS: BASOPHILS % (AUTO) 0.3 % (0.2-1.0); EOSINOPHILS # (AUTO) 0.4 x10^3/uL (0.0-0.2); EOSINOPHILS % (AUTO) 7.2 % (0.9-2.9); HEMATOCRIT 30.1 % (36.0-47.0); HEMOGLOBIN 9.7 g/dL (12.0-16.0); LYMPHOCYTES # (AUTO) 1.8 X10^3/uL (1.3-2.9); LYMPHOCYTES % (AUTO) 32.6 % (21.0-51.0); MEAN CORPUSCULAR HEMOGLOBIN 26.5 pg (27.0-34.0); MEAN CORPUSCULAR HGB CONC 32.3 g/dL (33.0-35.0); MEAN CORPUSCULAR VOLUME 82.2 fL (80.0-100.0); MEAN PLATELET VOLUME 7.9 fL (7.4-11.0); MONOCYTES # (AUTO) 0.5 x10^3/uL (0.3-0.8); MONOCYTES % (AUTO) 9.5 % (0.0-13.0); NEUTROPHILS # (AUTO) 2.7 x10^3/uL (2.2-4.8); NEUTROPHILS % (AUTO) 50.4 % (42.0-75.0); RED BLOOD COUNT 3.67 X10^6/uL (3.5-5.4); RED CELL DISTRIBUTION WIDTH 15.4 % (11.6-16.5); WHITE BLOOD COUNT 5.4 X10^3/uL (3.6-10.0)
[2021-09-24 08:18] VITALS: BP 130/60
[2021-09-24] MEDS ORDERED: MILK OF MAGNESIA PO SCH (09:00)
[2021-09-24] MEDS ORDERED: COLACE CAP 100 MG PO SCH (09:00)
[2021-09-24] MEDS: DIOVAN TAB 80 MG PO SCH (09:53)
[2021-09-24] MEDS: SYNTHROID 50 mcg TAB PO SCH (09:54)
[2021-09-24] MEDS: CARDIZEM CD 180 MG 24-HR PO SCH (09:54)
[2021-09-24] MEDS: ASPIRIN EC 81 MG PO SCH (09:54)
[2021-09-24] MEDS: NORMODYNE TAB 200 MG PO SCH (09:55)
[2021-09-24] MEDS: PROTONIX TAB 40 MG PO SCH (09:56)
[2021-09-24] MEDS: LOVENOX INJ 40 MG SYR SC SCH (09:56)
[2021-09-24] MEDS: LASIX PO SCH (10:07)
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
== END 2021-09-24 12:10 | disposition home or self-care (01) | DRG 292 ==
LOC: ER 07:17 → MED/SURG 07:17 → OBSVTOIN 11:17 → MED/SURG 12:12
PROVIDERS: ADMIT Internal Medicine; ATTEND Internal Medicine
DX: I11.0 Hypertensive heart disease with heart failure; M79.662 Pain in left lower leg; J44.1 Chronic obstructive pulmonary disease with (acute) exacerbation; M19.90 Unspecified osteoarthritis, unspecified site; M25.551 Pain in right hip; I50.9 Heart failure, unspecified; M25.561 Pain in right knee; R77.8 Other specified abnormalities of plasma proteins; R94.31 Abnormal electrocardiogram [ECG] [EKG]; Z20.822 Contact with and (suspected) exposure to COVID-19; R60.0 Localized edema; Z99.81 Dependence on supplemental oxygen; E66.01 Morbid (severe) obesity due to excess calories; R26.89 Other abnormalities of gait and mobility; R06.02 Shortness of breath

== ENCOUNTER 2022-05-01 00:41 | Inpatient (IN) ==
--- NOTE | 2022-05-01 00:56 | ED.ABDFE ---
HPI Time Seen Time Seen by Provider: 05/01/22 00:54 PCP Primary Care Physician: nakul HPI Comment HPI Comment: PATIENT IS 62YR OLD FEMALE IN ER WITH MID ABDOMINAL PAIN AND PAIN VENTRAL HERNIA PERIUMBICAL AREA FOR 6 DAYS. SEEN IN ER 6 DAYS AGO. PAIN SOCIATED WITH NAUSEA AND VOMITING. NO FEVER OR DIARRHEA. PAIN IS 10/10 AND IS CRAMPING IN NATURE. PAIN IS RADITING TO HER BACK. NOT HOLDING DOWN MEDICATION TODAY. Complaint Doctors Chief Complaint Comments: ABDOMINAL PAIN AND HERNIA HURTING FEW DAYS. Chief Complaint:: pt states" My hernia is hurting me bad tonight" COVID-19 Coronavirus risk:travel/contact w/high risk person: Yes Has patient experienced Coronavirus symptoms: Yes Reviewed Nurses Notes Review: Yes Source History Provided: Patient Mode of arrival Mode of Arrival: EMS Timing Onset of Chief Complaint: 05/01/22 PMH PMH Past Medical History: Yes Past Medical History: Anxiety, Arthritis, Asthma, CHF, COPD, Coronary Artery Disease and Hypertension Past Surgical History: Yes Surgical History: , Cholecystectomy and Other Family History History of Family Medical Conditions: Yes Family Medical History: Hypertension Social History Do you use any recreational Drugs:: No Lives With: Family Lives Where: Home Infectious screening In the last 2 months have you had wt loss of >10#?: NO Have you had fever, night sweats or hemotysis?: No Have you traveled outside the country in the last 6 months?: No Isolation: Standard ROS Review of Systems Constitutional: No Symptoms Reported and Fever Eyes: No Symptoms Reported ENTM: No Symptoms Reported; negative Nose Discharge or Nose Congestion Respiratoy: No Symptoms Reported; negative Moist Cough, Short of Breath or Wheezing Cardiovascular: No Symptoms Reported; negative Chest Pain Gastrointestinal/Abdominal: Abdominal Pain, Nausea and Vomiting; negative Diarrhea Genitourinary: No Symptoms Reported; negative Dysuria Neurological: No Symptoms Reported; negative Headache or Dizziness Musculoskeletal: No Symptoms Reported and See HPI Integumentary: No Symptoms Reported Hematologic/Lymphatic: No Symptoms Reported; negative Easy Bruising or Swollen Glands Endocrine: No Symptoms Reported; negative Increased Thirst or Increased Urine Psychiatric: No Symptoms Reported All Other Systems: Reviewed and Negative PE Vital Signs Vitals: Temperature 97.8 F Pulse Rate 115 Respiratory Rate 18 Blood Pressure [Right Arm] 168/80 Blood Pressure 135/74 O2 Sat by Pulse Oximetry 96 General Limitations: No Limitations General Appearance: Alert and In No Apparent Distress Head Head Exam: Normal Inspection Eyes Eye exam: Normal Appearance; negative Scleral Icterus or Conjunctival Injection ENT ENT Exam: Normal Exam, Normal Oropharynx, Normal External Ear Exam and TM's Normal Bilaterally Neck Neck Exam: Normal Inspection and Trachea Midline; negative Tenderness Chest Chest Inspection: Normal Inspection and Symmetric Chest Wall Rise; negative Tenderness Respiratory Respiratory Exam: Normal Lung Sounds Bilat; negative Accessory Muscle Use, Chest Wall Tenderness or Respiratory Distress Respiratory Exam: Bilateral: Rhonchi Cardiovascular Cardiovascular Exam: Regular Rate, Normal Rhythm and Normal Heart Sounds; negative Systolic Murmur or Diastolic Murmur Abdominal Exam Abdominal Exam: Normal Inspection, Normal Bowel Sounds, Soft, Tenderness (DIFFUSE TENDERNESS.) and Hernia (MID ABDOMEN HERNIA AROUND UMBILICUS THAT IS REDUCJBLE AND TENDER.) Abdominal Tenderness: Diffuse and Severe Rectal Rectal Exam: Deferred Back Back Exam: Normal Inspection; negative (R) CVA Tenderness or (L) CVA Tenderness Extremeties Extremities Exam: Normal Inspection and Normal Capillary Refill External Exam: Female: Deferred : Speculum Exam (Female): Deferred : Bimanual Exam (female): Deferred Neurologic Neurological Exam: Alert and Oriented X3; negative Motor Sensory Deficit Psychiatric Psychiatric Exam: Normal Affect and Normal Mood Skin Skin Exam: Dry MDM Differential Diagnosis Differential Diagnosis- Considerations may include:: Bowel Obstruction, Constipation, Diverticular disease, Gastritus/PUD, Hernia, Inflammatory BD, Ischemic Bowel, Urinary tract infection and Urolithiasis COURSE Treatment Treatment: SEE ORDERS DONE WHILE PATIENT WAS IN ER. ZOFRAM 4MG IM AND TORADOL 60MG IM WHILE PATIENT WAS IN ER. NS PLUS 20MEQ OF POTASSTUM 50CC/HR STARTED WHILE PATIENT WAS IN ER. Consultation Consultation Comments: DISCUSSED PATIENT WITH DR. RAMIREZ. HE WILL ADMIT PATIENT. Education/Counseling Education/Counseling: Patient Educated On: Diagnosis ROR Labs Reviewed Laboratory Results Reviewed?: Yes Result Diagrams: 05/04/22 04:22 05/04/22 07:15 Laboratory: WBC 11.7 X10^3/uL (3.6-10.0) H 05/01/22 01:26 RBC 4.43 X10^6/uL (3.5-5.4) 05/01/22 01:26 Hgb 11.7 g/dL (12.0-16.0) L 05/01/22 01: Hct 36.0 % (36.0-47.0) 05/01/22 01: MCV 81.4 fL (80.0-100.0) 05/01/22 01: MCH 26.4 pg (27.0-34.0) L 05/01/22: MCHC 32.5 g/dL (33.0-35.0) L 05/01/22: RDW 14.6 % (11.6-16.5) 05/01/22 01: Plt Count 325 X10^3/uL (150.0-450.0) 05/01/22: MPV 7.6 fL (7.4-11.0) 05/01/22 01: Neut % (Auto) 75.8 % (42.0-75.0) H 05/01/22 01: Lymph % (Auto) 13.5 % (21.0-51.0) L 05/01/22 01: [place] % (Auto) 8.3 % (0.0-13.0) 05/01/22 01: Eos % (Auto) 1.9 % (0.9-2.9) 05/01/22 01: Baso % (Auto) 0.5 % (0.2-1.0) 05/01/22 01: Neut # (Auto) 8.8 x10^3/uL (2.2-4.8) H 05/01/22 01:26 Lymph # (Auto) 1.6 X10^3/uL (1.3-2.9) 05/01/22 01:26 [place] # (Auto) 1.0 x10^3/uL (0.3-0.8) H 05/01/22 01:26 Eos # (Auto) 0.2 x10^3/uL (0.0-0.2) 05/01/22 01:26 Baso # (Auto) 0.1 X10^3/uL (0.0-0.1) 05/01/22 01: Absolute Nucleated RBC 0.0 /100WBC 05/01/22 01:26 Sodium 135 mmol/L (136-145) L 05/01/22 01:26 Corrected Sodium 135 mmol/L (136-145) L 05/01/22 01:26 Potassium 3.3 mmol/L (3.5-5.1) L 05/01/22 01:26 Chloride 94 mmol/L (98-107) L 05/01/22 01:26 Carbon Dioxide 30.9 mmol/L (21-32) 05/01/22 01:26 BUN 29 mg/dL (7-18) H 05/01/22 01:26 Creatinine 1.15 mg/dL (0.55-1.02) H 05/01/22 01:26 Est GFR (MDRD) Af Amer > 60 (>60) 05/01/22 01:26 Est GFR (MDRD) Non-Af 50 (>60) L 05/01/22 01:26 Glucose 114 mg/dL (65-99) H 05/01/22 01:26 Calcium 9.2 mg/dL (8.5-10.1) 05/01/22 01:26 Corrected Calcium 9.8 mg/dL (8.5-10.1) 05/01/22 01:26 Magnesium 1.8 mg/dL (2.0-2.9) L 05/01/22 01:26 Total Bilirubin 0.70 mg/dL (0.2-1.0) 05/01/22 01:26 AST 33 Units/L (15-37) 05/01/22 01:26 ALT 42 Units/L (12-78) 05/01/22 01:26 Alkaline Phosphatase 100 Units/L (46-116) 05/01/22 01:26 Total Protein 8.2 g/dL (6.4-8.2) 05/01/22 01:26 Albumin 3.2 g/dL (3.4-5.0) L 05/01/22 01:26 Globulin 5.0 g/dL (2.5-4.5) H 05/01/22 01:26 Albumin/Globulin Ratio 0.6 Ratio (1.1-2.1) L 05/01/22 01:26 Amylase 59 Units/L (25-115) 05/01/22 01:26 Lipase 99 Units/L (73-393) 05/01/22 01:26 XRAY XRAY Interpreted by: Radiologist (REPORT NOTED.) Opioid Opioid Risk Tool Age (Aristeo box if 16-45): No History of Preadolescent Sexual Abuse: No Total: 0 Total Score Risk Category: Low Risk Copyright: Negrito LAZAR predicting aberrant behaviors Discharge Plan Diagnosis Discharge Problem: Small bowel obstruction, Hypokalemia, Ventral hernia, Abdominal pain Discharge Plan Patient Disposition: 09 ADMITTED INPATIENT Condition: Stable
[2022-05-01 01:45] LABS: BASOPHILS # (AUTO) 0.1 X10^3/uL (0.0-0.1); BASOPHILS % (AUTO) 0.5 % (0.2-1.0); EOSINOPHILS # (AUTO) 0.2 x10^3/uL (0.0-0.2); EOSINOPHILS % (AUTO) 1.9 % (0.9-2.9); HEMOGLOBIN 11.7 g/dL (12.0-16.0); LYMPHOCYTES # (AUTO) 1.6 X10^3/uL (1.3-2.9); LYMPHOCYTES % (AUTO) 13.5 % (21.0-51.0); MEAN CORPUSCULAR HEMOGLOBIN 26.4 pg (27.0-34.0); MEAN CORPUSCULAR HGB CONC 32.5 g/dL (33.0-35.0); MEAN CORPUSCULAR VOLUME 81.4 fL (80.0-100.0); MEAN PLATELET VOLUME 7.6 fL (7.4-11.0); MONOCYTES % (AUTO) 8.3 % (0.0-13.0); NEUTROPHILS # (AUTO) 8.8 x10^3/uL (2.2-4.8); NEUTROPHILS % (AUTO) 75.8 % (42.0-75.0); RED BLOOD COUNT 4.43 X10^6/uL (3.5-5.4); RED CELL DISTRIBUTION WIDTH 14.6 % (11.6-16.5); WHITE BLOOD COUNT 11.7 X10^3/uL (3.6-10.0)
[2022-05-01 01:54] LABS: ALANINE AMINOTRANSFERASE 42 Units/L (12-78); ALBUMIN 3.2 g/dL (3.4-5.0); ALKALINE PHOSPHATASE 100 Units/L (46-116); AMYLASE 59 Units/L (25-115); ASPARTATE AMINO TRANSFERASE 33 Units/L (15-37); BLOOD UREA NITROGEN 29 mg/dL (7-18); CALCIUM 9.2 mg/dL (8.5-10.1); CARBON DIOXIDE 30.9 mmol/L (21-32); CHLORIDE 94 mmol/L (98-107); COR CA(FOR HYPOALB) 9.8 mg/dL (8.5-10.1); COR NA(FOR HYPERGLY) 135 mmol/L (136-145); CREATININE 1.15 mg/dL (0.55-1.02); LIPASE 99 Units/L (73-393); SODIUM 135 mmol/L (136-145); TOTAL PROTEIN 8.2 g/dL (6.4-8.2); eGFR NON BLACK RACES 50 (>60)
[2022-05-01] MEDS ORDERED: ZOFRAN INJ 4 MG VIAL IM ONE (02:31)
[2022-05-01] MEDS ORDERED: TORADOL 60 MG VIAL IM ONE (02:31)
[2022-05-01] MEDS ORDERED: TORADOL 60 MG VIAL ONE (02:33)
[2022-05-01] MEDS ORDERED: ZOFRAN INJ 4 MG VIAL ONE (02:33)
--- NOTE | 2022-05-01 03:11 | CT ---
PROCEDURE: CT Abdomen and Pelvis without Contrast .HISTORY: Abdomen pain with ventral hernia.TECHNIQUE: Axial images were performed through the abdomen and pelvis without the administration of IV contrast with multiplanar reformations . Oral contrast was not administered . Dose reduction techniques including Automated Exposure Control (AEC) and adjustment of mA and kV were utilized .COMPARISON: 05/04/2019.TECHNICAL QUALITY: Satisfactory .FINDINGS:Linear scar versus discoid atelectasis lung bases. Heart size upper limits of normal.Liver, spleen, adrenals, and pancreas show no abnormality.Kidneys show subcentimeter nonobstructing caliceal stone lower pole left kidney. No ureteral stones or obstructive uropathy.Previous cholecystectomy.No ascites or pneumoperitoneum.Normal aorta.No lymphadenopathy.13 cm ventral midline supraumbilical hernia involving large and small bowel loops without evidence of bowel obstruction secondary to the hernia. There is dilated small bowel loops consistent with small-bowel obstruction measuring up to 4.9 cm in diameter may be related to mid small bowel obstruction secondary to adhesion. Terminal ileum is normal size and large bowel show some scattered mild diverticulosis and no other abnormality. Appendix is not visualized.Pelvis shows no masses or free fluid with unremarkable reproductive organs and urinary bladder.No acute bony abnormality.IMPRESSION:1. Small-bowel obstruction mid small bowel could be related to adhesion.2. Ventral midline supraumbilical hernia increased in size since previous study that does not appear to be causing bowel obstruction.3. Left nephrolithiasis.4. Heart size upper limits of normal.Electronically signed by: Ryne Marvin (May 01, 2022 03:09:44)
[2022-05-01] MEDS ORDERED: NS 1,000 ML IV 1,000 ML with POTASSIUM CHLORIDE INJ 10 MEQ VIAL 10 MEQ IV SCH ×2 (04:00)
[2022-05-01] MEDS ORDERED: NS + KCL 20 MEQ/L 0 ML IV ONE (04:19)
[2022-05-01] MEDS ORDERED: NS 1,000 ML IV 1,000 ML IV ONE (04:22)
[2022-05-01] MEDS ORDERED: NS 1,000 ML IV 1,000 ML ONE (04:24)
[2022-05-01] MEDS ORDERED: ZOFRAN INJ 4 MG VIAL IVP PRN (04:55)
[2022-05-01] MEDS ORDERED: MORPHINE SULFATE INJ 2 MG INJ IVP PRN (04:55)
[2022-05-01] MEDS ORDERED: PROVENTIL NEB TX 0.083% 2.5MG/ 3ML NEB PRN (05:16)
[2022-05-01] MEDS: NS 1,000 ML IV 1,000 ML IV SCH ×2 (06:09→17:07)
[2022-05-01] MEDS ORDERED: MICRO K EXTEN CAP 10 MEQ PO PRN (07:23)
[2022-05-01] MEDS ORDERED: POTASSIUM CHL 60 MEQ/NS 0.45% 500 ML IV PRN (07:23)
[2022-05-01] MEDS ORDERED: K-RIDER 10 MEQ/NS 100 ML 10 MEQ/100 ML BAG IV PRN (07:23)
[2022-05-01] MEDS ORDERED: POTASSIUM CHL 40 MEQ/NS 0.45% 500 ML IV PRN (07:23)
[2022-05-01] MEDS: ZOFRAN INJ 4 MG VIAL IVP PRN ×2 (08:38→18:00)
[2022-05-01] MEDS: MAGNESIUM SULFATE 1 GRAM/100 mL PREMIX 1 G/100 ML BAG IV PRN ×2 (08:40→10:00)
[2022-05-01 11:29] LABS: BILIRUBIN,URINE 2+ (NEGATIVE); BLOOD/HEMOGLOBIN,URINE 1+ (NEGATIVE); GLUCOSE, URINE NEGATIVE (NEGATIVE); KETONES,URINE 3+ (NEGATIVE); LEUKOCYTE ESTERASE ,URINE 1+ (NEGATIVE); NITRITES,URINE NEGATIVE (NEGATIVE); PROTEIN,URINE 2+ (NEGATIVE); UROBILINOGEN,URINE 2+ (NORMAL)
[2022-05-01 11:52] LABS: APPEARANCE,URINE CLEAR (CLEAR); COLOR,URINE DARK YELLOW (YELLOW)
[2022-05-01 11:53] LABS: RBC,URINE 0-2 /HPF (0-3); SQUAMOUS EPITHELIAL CELL,UR FEW /HPF (NEGATIVE)
[2022-05-01 11:54] LABS: BACTERIA,URINE 2+ /HPF (NEGATIVE); HYALINE CASTS, URINE MODERATE /LPF (NEGATIVE)
[2022-05-01] MEDS: PHENERGAN INJ 25 MG IM PRN ×2 (12:11→22:37)
[2022-05-01] MEDS: K-DUR TAB 20 MEQ PO PRN (12:19)
[2022-05-01] MEDS: MORPHINE SULFATE INJ 2 MG INJ IVP PRN ×3 (12:32→22:39)
[2022-05-02] MEDS: NS 1,000 ML IV 1,000 ML IV SCH ×3 (02:00→20:41)
[2022-05-02 05:08] LABS: BASOPHILS % (AUTO) 0.3 % (0.2-1.0); EOSINOPHILS # (AUTO) 0.3 x10^3/uL (0.0-0.2); EOSINOPHILS % (AUTO) 2.7 % (0.9-2.9); HEMATOCRIT 35.8 % (36.0-47.0); HEMOGLOBIN 11.9 g/dL (12.0-16.0); LYMPHOCYTES # (AUTO) 1.4 X10^3/uL (1.3-2.9); LYMPHOCYTES % (AUTO) 11.2 % (21.0-51.0); MEAN CORPUSCULAR HEMOGLOBIN 26.9 pg (27.0-34.0); MEAN CORPUSCULAR HGB CONC 33.1 g/dL (33.0-35.0); MEAN CORPUSCULAR VOLUME 81.2 fL (80.0-100.0); MONOCYTES # (AUTO) 1.1 x10^3/uL (0.3-0.8); MONOCYTES % (AUTO) 8.7 % (0.0-13.0); NEUTROPHILS # (AUTO) 9.8 x10^3/uL (2.2-4.8); NEUTROPHILS % (AUTO) 77.1 % (42.0-75.0); RED BLOOD COUNT 4.41 X10^6/uL (3.5-5.4); RED CELL DISTRIBUTION WIDTH 14.8 % (11.6-16.5); WHITE BLOOD COUNT 12.7 X10^3/uL (3.6-10.0)
[2022-05-02 05:19] LABS: ALANINE AMINOTRANSFERASE 33 Units/L (12-78); ALBUMIN 3.1 g/dL (3.4-5.0); ALKALINE PHOSPHATASE 95 Units/L (46-116); ASPARTATE AMINO TRANSFERASE 31 Units/L (15-37); BLOOD UREA NITROGEN 38 mg/dL (7-18); CARBON DIOXIDE 30.5 mmol/L (21-32); CHLORIDE 93 mmol/L (98-107); COR CA(FOR HYPOALB) 9.7 mg/dL (8.5-10.1); CREATININE 1.77 mg/dL (0.55-1.02); MAGNESIUM 2.5 mg/dL (2.0-2.9); SODIUM 135 mmol/L (136-145); eGFR NON BLACK RACES 31 (>60)
[2022-05-02] MEDS: MORPHINE SULFATE INJ 2 MG INJ IVP PRN ×5 (06:17→23:22)
--- NOTE | 2022-05-02 09:49 | RAD ---
HISTORYSmall bowel obstructionSTUDYKUBCOMPARISONCT abdomen pelvis 05/01/2022FINDINGSThere is a single mildly dilated small bowel loop in the right lower abdomen. It should be noted that many of the dilated loops of small bowel noted on the recent CT abdomen pelvis were fluid-filled and would not definitely be detectable on plain film. There is a small amount of gas distally within the colon. Findings are still suggestive of partial small bowel obstruction however CT follow-up may be required when clinically indicated. No abnormal masses or abnormal calcifications are identified. Regional skeleton is intact.IMPRESSIONFindings likely still consistent with partial small bowel obstruction. Follow-up CT would be of further diagnostic value when clinically indicatedElectronically signed by: GAYE TONG (May 02, 2022 09:49:17)
--- NOTE | 2022-05-02 12:38 | DR.H&P ---
H&P - History & Physical for Day of: H&P Date: 05/01/22 - Chief Complaint Chief Complaint: ABDOMINAL PAIN, NAUSEA - History of Present Illness History of Present Illness: IS A 62 YEAR OLD PATIENT OF DR.ALLEN REINA. SHE PRESENTED TO THE ER WITH COMPLAINTS OF ABDOMINAL PAIN X 2 WEEKS. SHE ALSO REPORTS NAUSEA. PATIENT DESCRIBES PAIN DULL, SHARP AT TIMES, AND CONSTANT. PAIN WAS RATED A 10/10 ON ARRIVAL. PATIENT REPORTS THAT PAIN IS LOCATED AROUND THE MIDDLE OF THE STOMACH, AROUND THE AREA OF HER VENTRAL HERNIA. PAIN HAS WORSENED OVER THE PAST TWO WEEKS. HER PMH INCLUDES: CAD, CHF, HYPERLIPIDEMIA, HTN, ASTHMA, COPD, ARTHRITIS, CHRONIC LOW BACK PAIN, , CHOLECYSTECTOMY, HYSTERECTOMY, HERNIA REPAIR, AND BREAST REDUCTION. ON ARRIVAL TO THE HOSPITAL, VITALS WERE: 97.8-115-18-96%-135/74. LABS WERE OBTAINED. WBC 11.7, RBC 4.43, HGB 11.7, HCT 36.0, PLT COUNT 325, SODIUM 135, POTASSIUM 3.3, CHLORIDE 94, BUN 29, CREATININE 1.15, GLUCOSE 114, MAGNESIUM 1.8, AST 33, ALT 42, ALK PHOS 100, TOTAL PROTEIN 8.2, ALBUMIN 3.2, GLOBULIN 5.0, MAGNESIUM 1.8. URINALYSIS REVEALED: WBC 3-5, RBC 0-2, LEUKOCYTES 1+, BACTERIA 2+. A URINE CULTURE WAS SET UP. AN ABDOMEN/PELVIS CT WITHOUT CONTRAST WAS OBTAINED AND REVEALED: 1. Small-bowel obstruction mid small bowel could be related to adhesion.2. Ventral midline supraumbilical hernia increased in size since previous study that does not appear to be causing bowel obstruction.3. Left n ephrolithiasis.4. Heart size upper limits of normal. IN THE ER, SHE WAS GIVEN TORADOL 60MG IM X 1 AND ZOFRAN 4MG IV X 1. SHE WAS ADMITTED FOR FURTHER EVALUATION AND TREATMENT OF SMALL BOWEL OBSTRUCTION, MIDLINE SUPRAUMBILICAL HERNIA, HYPOKALEMIA, AND UTI. SHE WAS STARTED ON NORMAL SALINE AT 50 ML/HR, ROCEPHIN 1G IV DAILY, MORPHINE 2MG IV Q4H PRN, ZOFRAN 4MG IV Q6H PRN, PHENERGAN 25MG IM Q6H PRN, THE POTASSIUM AND MAGNESIUM PROTOCOLS. WE WILL HOLD HER NPO AND CONSULT , GENERAL SURGEON. OTHERWISE, WE WILL FOLLOW-UP WITH AM LABS AND CONTINUE TO MONITOR. TIME SPENT ON CLINICAL ASSESSMENT, REVIWING LABS AND IMAGING, DECISION MAKING, AND DOCUMENTATION GREATER THAN 75 MINUTES. - Past Medical History Past Medical History: Coronary Artery Disease, Hypertension, Anxiety, COPD, Asthma, Arthritis, CHF - Past Surgical History Surgical History: Abdominal Surgery, , Cholecystectomy, Hysterectomy, Other - Family History Family Medical History: Hypertension - Social History Does patient currently use any type of tobacco product: No Have you used tobacco products in the last 12 months: No Type of Tobacco Use: None Does any household member use tobacco: No Alcohol Use: None Drug Use: None - Medications Home Medications: No Known Drug Allergies Allergy (Verified 09/21/21 07:18) CONTINUE taking the following medications diclofenac sodium 1 % topical gel 2 g topical QID 05/02/22 [History] fluticasone propionate 44 mcg/actuation HFA aerosol inhaler 2 puff inhalation BID 05/02/22 [History] furosemide 80 mg tablet 80 mg PO DAILY 05/02/22 [History] potassium chloride 10 mEq tablet,extended release 10 meq PO DAILY 05/02/22 [His tory] topiramate 25 mg tablet 25 mg PO DAILY 05/02/22 [History] tramadol 50 mg tablet 50 mg PO PRN PRN pain 05/02/22 [History] zolpidem 10 mg tablet 10 mg PO HS 05/02/22 [History] - Review of Systems Constitutional: Weakness Eyes: No Symptoms Reported ENT: No Symptoms Reported Respiratory: No Symptoms Reported Cardiovascular: No Symptoms Reported Gastrointestinal: Nausea, Vomiting, Abdominal Pain Genitourinary: No Symptoms Reported Musculoskeletal: No Symptoms Reported Skin: No Symptoms Reported Neurological: Weakness - Physical Exam Vital Signs: Temperature 98.1 F Pulse Rate [Brachial] 110 Pulse Rate 115 Respiratory Rate 20 Blood Pressure [Left Arm] 128/71 Blood Pressure [Right Arm] 168/80 Blood Pressure 135/74 O2 Sat by Pulse Oximetry 97 Oriented: Normal Eyes: Normal Ear: Normal Nose: Normal Throat: Normal Respiratory: Clear Throughout Cardiovascular: Normal : Normal Auscultation: Bowel Sounds: Normal Palpation: Normal Tenderness: Epigastric, Periumbilical, Moderate Skin: Normal Musculoskeletal: Normal Psychiatric: Normal Mood Description: Calm Affect: Normal Speech Pattern: Clear - Assessment/Plan (1) Small bowel obstruction Status: Acute Plan: ADMIT, SURGICAL CONSULT, NPO, NORMAL SALINE AT 50 ML/HR, ROCEPHIN 1G IV DAILY, MORPHINE 2MG IV Q4H PRN, ZOFRAN 4MG IV Q6H PRN, PHENERGAN 25MG IM Q6H PRN, THE POTASSIUM AND MAGNESIUM PROTOCOLS. (2) Urinary tract infection Qualifiers: Urinary tract infection type: acute cystitis Hematuria presence: without hematuria Qualified Code(s): N30.00 - Acute cystitis without hematuria Status: Acute (3) Supraumbilical hernia Status: Acute (4) Hypokalemia Status: Acute (5) Hypertension Qualifiers: Hypertension type: primary hypertension Qualified Code(s): I10 - Essential (primary) hypertension Status: Chronic - Allergies Allergies/Adverse Reactions: Allergies Allergy/AdvReac Type Severity Reaction Status Date / Time No Known Drug Allergies Allergy Verified 09/21/21 07:18
[2022-05-02] MEDS: ROCEPHIN VIAL 1 GRAM 1 G in NS 100 ML IV 100 ML IV SCH (12:57)
--- NOTE | 2022-05-03 01:23 | DR.PROGNOT ---
HOSPITAL PROGRESS NOTE Progress Note for Day of: Progress Note Date: 05/02/22 Chief Complaint Chief Complaint: still c/o mid abdominal pain with nausea and dry heaves . KUB still showing partial SBO.. afebrile Past Medical Family Social History Changes in Past Med/Fam/Surg Hx: no changes Allergies: Allergies No Known Drug Allergies Allergy (Verified 09/21/21 07:18) Vital Signs Vital Signs: Temperature 98.3 F Pulse Rate [Brachial] 118 Pulse Rate 115 Respiratory Rate 20 Blood Pressure [Left Arm] 109/66 Blood Pressure [Right Arm] 168/80 Blood Pressure 135/74 O2 Sat by Pulse Oximetry 95 Physical Exam Oriented: Normal Eyes: Normal Ear: Normal Nose: Normal Throat: Normal Cardiovascular: Normal : Normal GI:Auscultation: Normal GI:Palpation: Normal GI: Tenderness: Other (diffuse tenderness wit.h fullness and moderate distention.. BS hypoactive ); negative Rebound Skin: Normal Musculoskeletal: Normal Psychiatric: Normal Mood Description: Calm Affect: Normal Speech Pattern: Clear and Appropriate Laboratory and Diagnostics Result Diagrams: 05/02/22 04:30 05/02/22 04:30 Labs: 05/01/22 11:10 Urine,Clean Catch Urine Culture - Preliminary Laboratory WBC 12.7 X10^3/uL (3.6-10.0) H 05/02/22 04:30 RBC 4.41 X10^6/uL (3.5-5.4) 05/02/22 04:30 Hgb 11.9 g/dL (12.0-16.0) L 05/02/22 04:30 Hct 35.8 % (36.0-47.0) L 05/02/22 04:30 MCV 81.2 fL (80.0-100.0) 05/02/22 04:30 MCH 26.9 pg (27.0-34.0) L 05/02/22 04:30 MCHC 33.1 g/dL (33.0-35.0) 05/02/22 04:30 RDW 14.8 % (11.6-16.5) 05/02/22 04:30 Plt Count 324 X10^3/uL (150.0-450.0) 05/02/22 04:30 MPV 8.0 fL (7.4-11.0) 05/02/22 04:30 Neut % (Auto) 77.1 % (42.0-75.0) H 05/02/22 04:30 Lymph % (Auto) 11.2 % (21.0-51.0) L 05/02/22 04:30 [place] % (Auto) 8.7 % (0.0-13.0) 05/02/22 04:30 Eos % (Auto) 2.7 % (0.9-2.9) 05/02/22 04:30 Baso % (Auto) 0.3 % (0.2-1.0) 05/02/22 04:30 Neut # (Auto) 9.8 x10^3/uL (2.2-4.8) H 05/02/22 04:30 Lymph # (Auto) 1.4 X10^3/uL (1.3-2.9) 05/02/22 04:30 [place] # (Auto) 1.1 x10^3/uL (0.3-0.8) H 05/02/22 04:30 Eos # (Auto) 0.3 x10^3/uL (0.0-0.2) H 05/02/22 04:30 Baso # (Auto) 0.0 X10^3/uL (0.0-0.1) 05/02/22 04:30 Absolute Nucleated RBC 0.0 /100WBC 05/02/22 04:30 Sodium 135 mmol/L (136-145) L 05/02/22 04:30 Corrected Sodium TNP 05/02/22 04:30 Potassium 3.4 mmol/L (3.5-5.1) L 05/02/22 04:30 Chloride 93 mmol/L (98-107) L 05/02/22 04:30 Carbon Dioxide 30.5 mmol/L (21-32) 05/02/22 04:30 BUN 38 mg/dL (7-18) H 05/02/22 04:30 Creatinine 1.77 mg/dL (0.55-1.02) H 05/02/22 04:30 Est GFR (MDRD) Af Amer 37 (>60) L 05/02/22 04:30 Est GFR (MDRD) Non-Af 31 (>60) L 05/02/22 04:30 Glucose 105 mg/dL (65-99) H 05/02/22 04:30 Calcium 9.0 mg/dL (8.5-10.1) 05/02/22 04:30 Corrected Calcium 9.7 mg/dL (8.5-10.1) 05/02/22 04:30 Magnesium 2.5 mg/dL (2.0-2.9) 05/02/22 04:30 Total Bilirubin 0.60 mg/dL (0.2-1.0) 05/02/22 04:30 AST 31 Units/L (15-37) 05/02/22 04:30 ALT 33 Units/L (12-78) 05/02/22 04:30 Alkaline Phosphatase 95 Units/L (46-116) 05/02/22 04:30 B-Natriuretic Peptide 26.9 pg/mL (0-79) 05/02/22 14:20 Total Protein 8.0 g/dL (6.4-8.2) 05/02/22 04:30 Albumin 3.1 g/dL (3.4-5.0) L 05/02/22 04:30 Globulin 4.9 g/dL (2.5-4.5) H 05/02/22 04:30 Albumin/Globulin Ratio 0.6 Ratio (1.1-2.1) L 05/02/22 04:30 Amylase 59 Units/L (25-115) 05/01/22 01:26 Lipase 99 Units/L (73-393) 05/01/22 01:26 Specimen Type Clean catch urine 05/01/22 11:10 Urine Color Dark yellow (YELLOW) 05/01/22 11:10 Urine Appearance Clear (CLEAR) 05/01/22 11:10 Urine pH 5.0 (5.0 - 8.0) 05/01/22 11:10 Ur Specific [place] 1.020 (1.000-1.030) 05/01/22 11:10 Urine Protein 2+ (NEGATIVE) 05/01/22 11:10 Urine Glucose (UA) Negative (NEGATIVE) 05/01/22 11:10 Urine Ketones 3+ (NEGATIVE) 05/01/22 11:10 Urine Blood 1+ (NEGATIVE) 05/01/22 11:10 Urine Nitrite Negative (NEGATIVE) 05/01/22 11:10 Urine Bilirubin 2+ (NEGATIVE) 05/01/22 11:10 Urine Urobilinogen 2+ (NORMAL) 05/01/22 11:10 Ur Leukocyte Esterase 1+ (NEGATIVE) 05/01/22 11:10 Urine RBC 0-2 /HPF (0-3) 05/01/22 11:10 Urine WBC 3-5 /HPF (0-5) 05/01/22 11:10 Ur Squamous Epith Cells Few /HPF (NEGATIVE) 05/01/22 11:10 Urine Bacteria 2+ /HPF (NEGATIVE) 05/01/22 11:10 Hyaline Casts Moderate /LPF (NEGATIVE) 05/01/22 11:10 Urine Mucus Moderate /HPF (NEGATIVE) 05/01/22 11:10 Ur Culture Indicated? Yes/culture set up 05/01/22 11:10 Assessment and Plan 1: partial small bowel obstruction . incisional hernia . morbid obesity . same NPO, IVF, IV Protonix , ABT , NGT if needed . repeat KUB in am Problem Patient Problems: Patient Problems (Updated 05/02/22 @ 12:39 by Miles Anguiano) Hypertension (Chronic) I10 Small bowel obstruction (Acute) K56.609 Supraumbilical hernia (Acute) K43.9 Hypokalemia (Acute) E87.6 Urinary tract infection (Acute) N39.0
[2022-05-03] MEDS ORDERED: MORPHINE SULFATE INJ 4 MG IVP ONE (02:48)
[2022-05-03] MEDS ORDERED: MORPHINE SULFATE INJ 4 MG ONE (02:50)
[2022-05-03] MEDS: PHENERGAN INJ 25 MG IM PRN (03:05)
[2022-05-03 05:01] LABS: BASOPHILS # (AUTO) 0.1 X10^3/uL (0.0-0.1); BASOPHILS % (AUTO) 0.7 % (0.2-1.0); EOSINOPHILS # (AUTO) 0.2 x10^3/uL (0.0-0.2); EOSINOPHILS % (AUTO) 1.6 % (0.9-2.9); HEMATOCRIT 36.6 % (36.0-47.0); LYMPHOCYTES # (AUTO) 1.1 X10^3/uL (1.3-2.9); LYMPHOCYTES % (AUTO) 8.5 % (21.0-51.0); MEAN CORPUSCULAR HEMOGLOBIN 26.7 pg (27.0-34.0); MEAN CORPUSCULAR HGB CONC 32.7 g/dL (33.0-35.0); MEAN CORPUSCULAR VOLUME 81.6 fL (80.0-100.0); MEAN PLATELET VOLUME 8.3 fL (7.4-11.0); MONOCYTES # (AUTO) 1.1 x10^3/uL (0.3-0.8); MONOCYTES % (AUTO) 8.6 % (0.0-13.0); NEUTROPHILS # (AUTO) 10.6 x10^3/uL (2.2-4.8); NEUTROPHILS % (AUTO) 80.6 % (42.0-75.0); RED BLOOD COUNT 4.49 X10^6/uL (3.5-5.4); WHITE BLOOD COUNT 13.2 X10^3/uL (3.6-10.0)
[2022-05-03 05:16] LABS: ALBUMIN 3.2 g/dL (3.4-5.0); CALCIUM 8.9 mg/dL (8.5-10.1); CARBON DIOXIDE 29.9 mmol/L (21-32); COR CA(FOR HYPOALB) 9.5 mg/dL (8.5-10.1); CREATININE 2.51 mg/dL (0.55-1.02); TOTAL PROTEIN 8.4 g/dL (6.4-8.2)
[2022-05-03 08:23] LABS: BILIRUBIN,URINE 2+ (NEGATIVE); BLOOD/HEMOGLOBIN,URINE 4+ (NEGATIVE); GLUCOSE, URINE NEGATIVE (NEGATIVE); KETONES,URINE 1+ (NEGATIVE); LEUKOCYTE ESTERASE ,URINE NEGATIVE (NEGATIVE); NITRITES,URINE NEGATIVE (NEGATIVE); PROTEIN,URINE 3+ (NEGATIVE); UROBILINOGEN,URINE 1+ (NORMAL)
[2022-05-03 08:36] LABS: APPEARANCE,URINE SLIGHTLY HAZY (CLEAR); BACTERIA,URINE TRACE /HPF (NEGATIVE); COLOR,URINE DARK YELLOW (YELLOW); HYALINE CASTS, URINE FEW /LPF (NEGATIVE); SQUAMOUS EPITHELIAL CELL,UR RARE /HPF (NEGATIVE)
[2022-05-03] MEDS: NS 1,000 ML IV 1,000 ML IV SCH ×3 (08:44→16:23)
[2022-05-03] MEDS: ROCEPHIN VIAL 1 GRAM 1 G in NS 100 ML IV 100 ML IV SCH (08:57)
--- NOTE | 2022-05-03 09:02 | RAD ---
HISTORYSmall bowel obstruction follow-[id number]/18/2023 r.br.br.br nonobstructive. No significant dilated small bowel loops are present. This would suggest improving small-bowel obstruction however as noted on the prior examination the dilated bowel noted on the recent CT abdomen were fluid-filled and would not definitely be detectable on plain film. Follow-up CT may be indicated. No abnormal masses or abnormal calcifications are identified. Regional skeleton is intact.IMPRESSIONNo significant small bowel dilatation however this does not confirm improving small-bowel obstruction as the small-bowel loops noted to be dilated on the recent CT were seen with filled and would not necessarily be visible on plain film. Follow-up CT abdomen pelvis may be indicatedElectronically signed by: GAYE TONG (May 03, 2022 09:01:37)
[2022-05-03] MEDS: ZOFRAN INJ 4 MG VIAL IVP PRN ×2 (09:20→19:29)
[2022-05-03] MEDS ORDERED: NS 1,000 ML IV 1,000 ML IV ONE ×2 (10:10→16:40)
--- NOTE | 2022-05-03 10:28 | RAD ---
KUBHISTORY: NG TUBE PLACEMENTStudy: Single view of the upper abdomen.Comparison:Earlier same dayFindings:There is a NG tube terminating within the stomach with side port at GE junction.Bowel gas pattern is normal.IMPRESSION:1. NG tube terminating within the stomach with side port at GE junction. Recommend advancement at least 7 cm.Electronically signed by: ARUN JAY (May 03, 2022 10:27:03)
[2022-05-03] MEDS: PROTONIX INJ 40 MG VIAL IVP SCH ×2 (10:57→20:56)
--- NOTE | 2022-05-03 11:34 | EKG ---
Test Reason : ELEVATED HEART RATE Blood Pressure : */* mmHG Vent. Rate : 106 BPM Atrial Rate : * BPM P-R Int : * ms QRS Dur : 104 ms QT Int : 448 ms P-R-T Axes : * 25 104 degrees QTc Int : 595 ms Normal sinus rhythm Prolonged CT interval Nonspecific ST and T wave abnormality Prolonged QT Abnormal ECG No previous ECGs available Confirmed by Moreno Atkins ([id number]) on 05/05/2022 3:55:08 PM Referred By: Confirmed By: Moreno Atkins
--- NOTE | 2022-05-03 12:06 | PCM.PROG ---
Progress Note - Progress Note for Day of Date of Exam: 05/02/22 - Subjective Subjective: IS CURRENTLY INPATIENT STATUS FOR TREATMENT OF A SMALL BOWEL OBSTRUCTION, URINARY TRACT INFECTION, ABDOMINAL PAIN, HYPOKALEMIA. SHE HAS A SUPRAUMBILICAL HERNIA WELL. SIGNIFICANT PMH INCLUDES: CAD, CHF, HYPERLIPIDEMIA, HTN, ASTHMA, COPD, ARTHRITIS, CHRONIC LOW BACK PAIN, , CHOLECYSTECTOMY, HYSTERECTOMY, HERNIA REPAIR, AND BREAST REDUCTION. TODAY, SHE IS ALERT AND ORIENTED, LYING IN BED ON MORNING ROUNDS. SHE CONTINUES TO COMPLAIN OF MODERATE MID ABDOMINAL PAIN. SHE HAS HAD NAUSEA AND DRY HEAVES, BUT DENIES VOMITING. ON EXAMINATION, HEART IS REGULAR IN RATE AND RHYTHM. BILATERAL LUNGS ARE CLEAR TO AUSCULTATION. ABDOMEN IS NOTED WITH MODERATE DISTENTION AND TENDERNESS. BOWEL SOUNDS ARE HYPOACTIVE IN ALL QUADRANTS. NO UPPER OR LOWER EXTREMITY EDEMA NOTED. HER VITALS THIS MORNING ARE: 97.0-100-18-98%-132/67. LABS WERE OBTAINED. WBC 12.7, RBC 4.41, HGB 11.9, HCT 35.8, PLT COUNT 324, SODIUM 135, POTASSIUM 3.4, CHLORIDE 93, BUN 38, CREAITNINE 1.77, GLUCOSE 105, CALCIUM 9.0, MAGNESIUM 2.5, AST 31, ALT 33, ALK PHOS 95, TOTAL PROTEIN 8.0, ALBUMIN 3.1, GLOBULIN 4.9. URINE CULTURE IS PENDING. A KUB WAS OBTAINED THIS MORNING AND REVEALED: There is a single mildly dilated small bowel loop in the right lower abdomen. It should be noted that many of the dilated loops of small bowel noted on the recent CT abdomen pelvis were fluid-filled and would not definitely be detectable on plain film. There is a small amount of gas distally within the colon. Findings are still suggestive of partial small bowel obstruction however CT follow-up may be required when clinically indicated. No abnormal masses or abnormal calcifications are identified. Regional skeleton is intact. SHE IS CURRENTLY RECEIVING NORMAL SALINE AT 50 ML/HR, ROCEPHIN 1G IV DAILY, MORPHINE 2MG IV Q4H PRN, ZOFRAN 4MG IV Q6H PRN, PHENERGAN 25MG IM Q6H PRN, THE POTASSIUM AND MAGNESIUM PROTOCOLS. SHE WILL REMAIN NPO TODAY. OTHERWISE, WE WILL FOLLOW-UP WITH AM LABS AND REPEAT A KUB IN THE AM. TIME SPENT ON CLINICAL ASSESSMENT, REVIWING LABS AND IMAGING, DECISION MAKING, AND DOCUMENTATION GREATER THAN 45 MINUTES. - Past Medical Family Social History Past Med/Fam/Surg Hx: No changes since H&P Allergies: Allergies No Known Drug Allergies Allergy (Verified 09/21/21 07:18) - Review of Systems ROS: No change since H&P - Vital Signs and I&O's Vital Signs: Temperature 97.8 F Pulse Rate [Brachial] 107 Pulse Rate 127 Respiratory Rate 18 Blood Pressure [Left Arm] 123/59 Blood Pressure [Right Arm] 168/80 Blood Pressure 135/74 O2 Sat by Pulse Oximetry 97 Intake and Output: Intake & Output 04/30/22 05/01/22 05/02/22 05/03/22 11:59 11:59 11:59 11:59 Intake Total 0 / 0 1158 / 1158 1651 / 1651 Output Total 300 / 300 150 / 150 875 / 875 Balance -300 / -300 1008 / 1008 776 / 776 - Physical Exam Oriented: Normal Eyes: Normal Ear: Normal Nose: Normal Throat: Normal Respiratory: Generalized, Diminished Cardiovascular: Normal : Normal Auscultation: Bowel Sounds: Normal Palpation: Normal Tenderness: Other (diffuse tenderness wit.h fullness and moderate distention.. BS hypoactive). negative: Rebound Skin: Normal Musculoskeletal: Normal Psychiatric: Normal Mood Description: Calm Affect: Normal Speech Pattern: Clear, Appropriate - Laboratory and Diagnostics Result Diagrams: 05/03/22 04:03 05/03/22 04:03 Labs: 05/01/22 11:10 Urine,Clean Catch Urine Culture - Final Escherichia Coli Klebsiella Oxytoca Laboratory WBC 13.2 X10^3/uL (3.6-10.0) H 05/03/22 04:03 RBC 4.49 X10^6/uL (3.5-5.4) 05/03/22 04:03 Hgb 12.0 g/dL (12.0-16.0) 05/03/22 04:03 Hct 36.6 % (36.0-47.0) 05/03/22 04:03 MCV 81.6 fL (80.0-100.0) 05/03/22 04:03 MCH 26.7 pg (27.0-34.0) L 05/03/22 04:03 MCHC 32.7 g/dL (33.0-35.0) L 05/03/22 04:03 RDW 15.0 % (11.6-16.5) 05/03/22 04:03 Plt Count 338 X10^3/uL (150.0-450.0) 05/03/22 04:03 MPV 8.3 fL (7.4-11.0) 05/03/22 04:03 Neut % (Auto) 80.6 % (42.0-75.0) H 05/03/22 04:03 Lymph % (Auto) 8.5 % (21.0-51.0) L 05/03/22 04:03 [place] % (Auto) 8.6 % (0.0-13.0) 05/03/22 04:03 Eos % (Auto) 1.6 % (0.9-2.9) 05/03/22 04:03 Baso % (Auto) 0.7 % (0.2-1.0) 05/03/22 04:03 Neut # (Auto) 10.6 x10^3/uL (2.2-4.8) H 05/03/22 04:03 Lymph # (Auto) 1.1 X10^3/uL (1.3-2.9) L 05/03/22 04:03 [place] # (Auto) 1.1 x10^3/uL (0.3-0.8) H 05/03/22 04:03 Eos # (Auto) 0.2 x10^3/uL (0.0-0.2) 05/03/22 04:03 Baso # (Auto) 0.1 X10^3/uL (0.0-0.1) 05/03/22 04:03 Absolute Nucleated RBC 0.0 /100WBC 05/03/22 04:03 Sodium 137 mmol/L (136-145) 05/03/22 04:03 Corrected Sodium 137 mmol/L (136-145) 05/03/22 04:03 Potassium 3.4 mmol/L (3.5-5.1) L 05/03/22 04:03 Chloride 95 mmol/L (98-107) L 05/03/22 04:03 Carbon Dioxide 29.9 mmol/L (21-32) 05/03/22 04:03 BUN 46 mg/dL (7-18) H 05/03/22 04:03 Creatinine 2.51 mg/dL (0.55-1.02) H 05/03/22 04:03 Est GFR (MDRD) Af Amer 25 (>60) L 05/03/22 04:03 Est GFR (MDRD) Non-Af 21 (>60) L 05/03/22 04:03 Glucose 111 mg/dL (65-99) H 05/03/22 04:03 Calcium 8.9 mg/dL (8.5-10.1) 05/03/22 04:03 Corrected Calcium 9.5 mg/dL (8.5-10.1) 05/03/22 04:03 Magnesium 2.5 mg/dL (2.0-2.9) 05/02/22 04:30 Total Bilirubin 0.50 mg/dL (0.2-1.0) 05/03/22 04:03 AST 27 Units/L (15-37) 05/03/22 04:03 ALT 30 Units/L (12-78) 05/03/22 04:03 Alkaline Phosphatase 105 Units/L (46-116) 05/03/22 04:03 B-Natriuretic Peptide 26.9 pg/mL (0-79) 05/02/22 14:20 Total Protein 8.4 g/dL (6.4-8.2) H 05/03/22 04:03 Albumin 3.2 g/dL (3.4-5.0) L 05/03/22 04:03 Globulin 5.2 g/dL (2.5-4.5) H 05/03/22 04:03 Albumin/Globulin Ratio 0.6 Ratio (1.1-2.1) L 05/03/22 04:03 Amylase 59 Units/L (25-115) 05/01/22 01:26 Lipase 99 Units/L (73-393) 05/01/22 01:26 Specimen Type Catherized urine 05/03/22 08:00 Urine Color Dark yellow (YELLOW) 05/03/22 08:00 Urine Appearance Slightly hazy (CLEAR) 05/03/22 08:00 Urine pH 6.0 (5.0 - 8.0) 05/03/22 08:00 Ur Specific [place] 1.030 (1.000-1.030) 05/03/22 08:00 Urine Protein 3+ (NEGATIVE) 05/03/22 08:00 Urine Glucose (UA) Negative (NEGATIVE) 05/03/22 08:00 Urine Ketones 1+ (NEGATIVE) 05/03/22 08:00 Urine Blood 4+ (NEGATIVE) 05/03/22 08:00 Urine Nitrite Negative (NEGATIVE) 05/03/22 08:00 Urine Bilirubin 2+ (NEGATIVE) 05/03/22 08:00 Urine Urobilinogen 1+ (NORMAL) 05/03/22 08:00 Ur Leukocyte Esterase Negative (NEGATIVE) 05/03/22 08:00 Urine RBC 5-10 /HPF (0-3) A 05/03/22 08:00 Urine WBC 0-2 /HPF (0-5) 05/03/22 08:00 Ur Squamous Epith Cells Rare /HPF (NEGATIVE) 05/03/22 08:00 Amorphous Sediment 2+ /HPF (NEGATIVE) 05/03/22 08:00 Urine Bacteria Trace /HPF (NEGATIVE) 05/03/22 08:00 Hyaline Casts Few /LPF (NEGATIVE) 05/03/22 08:00 Urine Mucus Rare /HPF (NEGATIVE) 05/03/22 08:00 Ur Culture Indicated? No/not indicated 05/03/22 08:00 - Plan (1) Small bowel obstruction Status: Acute Plan: NPO, NORMAL SALINE AT 50 ML/HR, ROCEPHIN 1G IV DAILY, MORPHINE 2MG IV Q4H PRN, ZOFRAN 4MG IV Q6H PRN, PHENERGAN 25MG IM Q6H PRN, THE POTASSIUM AND MAGNESIUM PROTOCOLS. REPEAT KUB IN AM (2) Urinary tract infection Status: Acute Qualifiers: Urinary tract infection type: acute cystitis Hematuria presence: without hematuria Qualified Code(s): N30.00 - Acute cystitis without hematuria (3) Supraumbilical hernia Status: Acute (4) Hypokalemia Status: Acute (5) Nausea & vomiting Status: Acute Qualifiers: Vomiting type: unspecified Qualified Code(s): R11.2 - Nausea with vomiting, unspecified (6) Hypertension Status: Chronic Qualifiers: Hypertension type: primary hypertension Qualified Code(s): I10 - Essential (primary) hypertension (7) CAD (coronary artery disease) Status: Chronic Qualifiers: Coronary Disease-Associated Artery/Lesion type: [place] artery [place] vs. transplanted heart: [place] heart Associated angina: unspecified whether angina present Qualified Code(s): I25.10 - Atherosclerotic heart disease of [place] coronary artery without angina pectoris (8) COPD (chronic obstructive pulmonary disease) Status: Chronic Qualifiers: COPD type: unspecified COPD Qualified Code(s): J44.9 - Chronic obstructive pulmonary disease, unspecified
--- NOTE | 2022-05-03 13:03 | PCM.PROG ---
Progress Note - Progress Note for Day of Date of Exam: 05/03/22 - Subjective Subjective: IS CURRENTLY INPATIENT STATUS FOR TREATMENT OF A SMALL BOWEL OBSTRUCTION, URINARY TRACT INFECTION, ABDOMINAL PAIN, HYPOKALEMIA. SHE HAS A SUPRAUMBILICAL HERNIA WELL. SIGNIFICANT PMH INCLUDES: CAD, CHF, HYPERLIPIDEMIA, HTN, ASTHMA, COPD, ARTHRITIS, CHRONIC LOW BACK PAIN, , CHOLECYSTECTOMY, HYSTERECTOMY, HERNIA REPAIR, AND BREAST REDUCTION. TODAY, SHE IS ALERT AND ORIENTED, LYING IN BED ON MORNING ROUNDS. SHE CONTINUES TO COMPLAIN OF MODERATE MID ABDOMINAL PAIN, ABDOMINAL DISTENTION, AND NAUSEA/VOMITING. PATIENT HAS HAD MULTIPLE EPISODES OF VOMITING THROUGHOUT THE NIGHT, BUT HAS REFUSED PLACEMENT OF AN NG TUBE. ON EXAMINATION, HEART IS REGULAR IN RATE AND RHYTHM. BILATERAL LUNGS ARE CLEAR TO AUSCULTATION. ABDOMEN IS NOTED WITH MODERATE DISTENTION AND TENDERNESS. BOWEL SOUNDS ARE HYPOACTIVE IN ALL QUADRANTS. NO UPPER OR LOWER EXTREMITY EDEMA NOTED. HER VITALS THIS MORNING ARE: 97.8-107-18-96%-123/59. LABS WERE OBTAINED. WBC 13.2, RBC 4.49, HGB 12.0, HCT 36.6, PLT COUNT 338, SODIUM 137, POTASSIUM 3.4, CHLORIDE 95, BUN 46, CREATININE 2.51, GLUCOSE 111, CALCIUM 8.9, TOTAL BILI 0.50, AST 27, ALT 30, ALK PHOS 105, TOTAL PROTEIN 8.4, ALBUMIN 3.2. URINE CULTURE REVEALS GROWTH OF E.COLI AND KLEBSIELLA OXYTOCA. A KUB WAS REPEATED THIS MORNING AND REVEALED: No signi ficant small bowel dilatation however this does not confirm improving small- bowel obstruction as the small-bowel loops noted to be dilated on the recent CT were seen with filled and would not necessarily be visible on plain film. SHE IS CURRENTLY RECEIVING NORMAL SALINE AT 50 ML/HR, ROCEPHIN 1G IV DAILY, MORPHINE 2MG IV Q4H PRN, ZOFRAN 4MG IV Q6H PRN, PHENERGAN 25MG IM Q6H PRN, THE POTASSIUM AND MAGNESIUM PROTOCOLS. SHE WILL REMAIN NPO TODAY. WE WILL ADMINISTER A NORMAL SALINE BOLUS. WE DISCUSSED THE IMPORTANCE OF PLACEMENT OF NG TUBE. PATIENT IS AGREEABLE TO PLACEMENT AT THIS TIME. OTHERWISE, WE WILL FOLLOW-UP WITH AM LABS AND REPEAT AN ABDOMEN/PELVIS CT WITHOUT CONTRAST IN THE MORNING. TIME SPENT ON CLINICAL ASSESSMENT, REVIWING LABS AND IMAGING, DECISION MAKING, AND DOCUMENTATION GREATER THAN 45 MINUTES. - Past Medical Family Social History Past Med/Fam/Surg Hx: No changes since H&P Allergies: Allergies No Known Drug Allergies Allergy (Verified 09/21/21 07:18) - Review of Systems ROS: No change since H&P - Vital Signs and I&O's Vital Signs: Temperature 98.4 F Pulse Rate [Brachial] 108 Pulse Rate 127 Respiratory Rate 20 Blood Pressure [Left Arm] 142/74 Blood Pressure [Right Arm] 168/80 Blood Pressure 135/74 O2 Sat by Pulse Oximetry 98 Intake and Output: Intake & Output 05/01/22 05/02/22 05/03/22 05/04/22 11:59 11:59 11:59 11:59 Intake Total 0 / 0 1158 / 1158 1651 / 1651 Output Total 300 / 300 150 / 150 875 / 875 Balance -300 / -300 1008 / 1008 776 / 776 - Physical Exam Oriented: Normal Eyes: Normal Ear: Normal Nose: Normal Throat: Normal Respiratory: Generalized, Diminished Cardiovascular: Normal : Normal Auscultation: Bowel Sounds: Normal Palpation: Normal Tenderness: Other (diffuse tenderness wit.h fullness and moderate distention.. BS hypoactive). negative: Rebound Skin: Normal Musculoskeletal: Normal Psychiatric: Normal Mood Description: Calm Affect: Normal Speech Pattern: Clear, Appropriate - Laboratory and Diagnostics Result Diagrams: 05/03/22 04:03 05/03/22 04:03 Labs: 05/01/22 11:10 Urine,Clean Catch Urine Culture - Final Escherichia Coli Klebsiella Oxytoca Laboratory WBC 13.2 X10^3/uL (3.6-10.0) H 05/03/22 04:03 RBC 4.49 X10^6/uL (3.5-5.4) 05/03/22 04:03 Hgb 12.0 g/dL (12.0-16.0) 05/03/22 04:03 Hct 36.6 % (36.0-47.0) 05/03/22 04:03 MCV 81.6 fL (80.0-100.0) 05/03/22 04:03 MCH 26.7 pg (27.0-34.0) L 05/03/22 04:03 MCHC 32.7 g/dL (33.0-35.0) L 05/03/22 04:03 RDW 15.0 % (11.6-16.5) 05/03/22 04:03 Plt Count 338 X10^3/uL (150.0-450.0) 05/03/22 04:03 MPV 8.3 fL (7.4-11.0) 05/03/22 04:03 Neut % (Auto) 80.6 % (42.0-75.0) H 05/03/22 04:03 Lymph % (Auto) 8.5 % (21.0-51.0) L 05/03/22 04:03 [place] % (Auto) 8.6 % (0.0-13.0) 05/03/22 04:03 Eos % (Auto) 1.6 % (0.9-2.9) 05/03/22 04:03 Baso % (Auto) 0.7 % (0.2-1.0) 05/03/22 04:03 Neut # (Auto) 10.6 x10^3/uL (2.2-4.8) H 05/03/22 04:03 Lymph # (Auto) 1.1 X10^3/uL (1.3-2.9) L 05/03/22 04:03 [place] # (Auto) 1.1 x10^3/uL (0.3-0.8) H 05/03/22 04:03 Eos # (Auto) 0.2 x10^3/uL (0.0-0.2) 05/03/22 04:03 Baso # (Auto) 0.1 X10^3/uL (0.0-0.1) 05/03/22 04:03 Absolute Nucleated RBC 0.0 /100WBC 05/03/22 04:03 Sodium 137 mmol/L (136-145) 05/03/22 04:03 Corrected Sodium 137 mmol/L (136-145) 05/03/22 04:03 Potassium 3.4 mmol/L (3.5-5.1) L 05/03/22 04:03 Chloride 95 mmol/L (98-107) L 05/03/22 04:03 Carbon Dioxide 29.9 mmol/L (21-32) 05/03/22 04:03 BUN 46 mg/dL (7-18) H 05/03/22 04:03 Creatinine 2.51 mg/dL (0.55-1.02) H 05/03/22 04:03 Est GFR (MDRD) Af Amer 25 (>60) L 05/03/22 04:03 Est GFR (MDRD) Non-Af 21 (>60) L 05/03/22 04:03 Glucose 111 mg/dL (65-99) H 05/03/22 04:03 Calcium 8.9 mg/dL (8.5-10.1) 05/03/22 04:03 Corrected Calcium 9.5 mg/dL (8.5-10.1) 05/03/22 04:03 Magnesium 2.5 mg/dL (2.0-2.9) 05/02/22 04:30 Total Bilirubin 0.50 mg/dL (0.2-1.0) 05/03/22 04:03 AST 27 Units/L (15-37) 05/03/22 04:03 ALT 30 Units/L (12-78) 05/03/22 04:03 Alkaline Phosphatase 105 Units/L (46-116) 05/03/22 04:03 B-Natriuretic Peptide 26.9 pg/mL (0-79) 05/02/22 14:20 Total Protein 8.4 g/dL (6.4-8.2) H 05/03/22 04:03 Albumin 3.2 g/dL (3.4-5.0) L 05/03/22 04:03 Globulin 5.2 g/dL (2.5-4.5) H 05/03/22 04:03 Albumin/Globulin Ratio 0.6 Ratio (1.1-2.1) L 05/03/22 04:03 Amylase 59 Units/L (25-115) 05/01/22 01:26 Lipase 99 Units/L (73-393) 05/01/22 01:26 Specimen Type Catherized urine 05/03/22 08:00 Urine Color Dark yellow (YELLOW) 05/03/22 08:00 Urine Appearance Slightly hazy (CLEAR) 05/03/22 08:00 Urine pH 6.0 (5.0 - 8.0) 05/03/22 08:00 Ur Specific [place] [employer] 1.030 (1.000-1.030) 05/03/22 08:00 Urine Protein 3+ (NEGATIVE) 05/03/22 08:00 Urine Glucose (UA) Negative (NEGATIVE) 05/03/22 08:00 Urine Ketones 1+ (NEGATIVE) 05/03/22 08:00 Urine Blood 4+ (NEGATIVE) 05/03/22 08:00 Urine Nitrite Negative (NEGATIVE) 05/03/22 08:00 Urine Bilirubin 2+ (NEGATIVE) 05/03/22 08:00 Urine Urobilinogen 1+ (NORMAL) 05/03/22 08:00 Ur Leukocyte Esterase Negative (NEGATIVE) 05/03/22 08:00 Urine RBC 5-10 /HPF (0-3) A 05/03/22 08:00 Urine WBC 0-2 /HPF (0-5) 05/03/22 08:00 Ur Squamous Epith Cells Rare /HPF (NEGATIVE) 05/03/22 08:00 Amorphous Sediment 2+ /HPF (NEGATIVE) 05/03/22 08:00 Urine Bacteria Trace /HPF (NEGATIVE) 05/03/22 08:00 Hyaline Casts Few /LPF (NEGATIVE) 05/03/22 08:00 Urine Mucus Rare /HPF (NEGATIVE) 05/03/22 08:00 Ur Culture Indicated? No/not indicated 05/03/22 08:00 - Plan (1) Small bowel obstruction Status: Acute Plan: NPO, NG TUBE, NORMAL SALINE AT 50 ML/HR, ROCEPHIN 1G IV DAILY, MORPHINE 2MG IV Q4H PRN, ZOFRAN 4MG IV Q6H PRN, PHENERGAN 25MG IM Q6H PRN, THE POTASSIUM AND MAGNESIUM PROTOCOLS. REPEAT ABD/PELVIS CT IN AM (2) Urinary tract infection Status: Acute Qualifiers: Urinary tract infection type: acute cystitis Hematuria presence: without hematuria Qualified Code(s): N30.00 - Acute cystitis without hematuria (3) Supraumbilical hernia Status: Acute (4) Hypokalemia Status: Acute (5) Nausea & vomiting Status: Acute Qualifiers: Vomiting type: unspecified Qualified Code(s): R11.2 - Nausea with vomiting, unspecified (6) Hypertension Status: Chronic Qualifiers: Hypertension type: primary hypertension Qualified Code(s): I10 - Essential (primary) hypertension (7) CAD (coronary artery disease) Status: Chronic Qualifiers: Coronary Disease-Associated Artery/Lesion type: [place] artery [place] vs. transplanted heart: [place] heart Associated angina: unspecified whether angina present Qualified Code(s): I25.10 - Atherosclerotic heart disease of [place] coronary artery without angina pectoris (8) COPD (chronic obstructive pulmonary disease) Status: Chronic Qualifiers: COPD type: unspecified COPD Qualified Code(s): J44.9 - Chronic obstructive pulmonary disease, unspecified
[2022-05-03] MEDS ORDERED: NS 1,000 ML IV 1,000 ML ONE (16:45)
[2022-05-03 17:43] LABS: BILIRUBIN,URINE 1+ (NEGATIVE); BLOOD/HEMOGLOBIN,URINE 4+ (NEGATIVE); GLUCOSE, URINE NEGATIVE (NEGATIVE); KETONES,URINE 3+ (NEGATIVE); LEUKOCYTE ESTERASE ,URINE 2+ (NEGATIVE); NITRITES,URINE NEGATIVE (NEGATIVE); PROTEIN,URINE 2+ (NEGATIVE); UROBILINOGEN,URINE NORMAL (NORMAL)
[2022-05-03 17:55] LABS: APPEARANCE,URINE CLOUDY (CLEAR); BACTERIA,URINE TRACE /HPF (NEGATIVE); COLOR,URINE YELLOW (YELLOW); SQUAMOUS EPITHELIAL CELL,UR FEW /HPF (NEGATIVE)
[2022-05-03] MEDS: MORPHINE SULFATE INJ 2 MG INJ IVP PRN ×2 (19:28→23:31)
--- NOTE | 2022-05-03 20:42 | RAD ---
HISTORYNG Tube placementSTUDYKUBCOMPARISONEarlier same dayFINDINGSEvaluation of the abdomen demonstrates a nonobstructive bowel gas pattern. Enteric tube advanced with tip overlying the gastric lumen. No pathological soft tissue mass or calcification can be observed. The bony structures are grossly intact.IMPRESSIONExpected positioning of enteric tube with tip overlying the gastric lumen.Electronically signed by: GAYE TONG (May 03, 2022 20:40:44)
[2022-05-03] MEDS ORDERED: LR 1,000 ML IV 1,000 ML IV ONE (22:24)
--- NOTE | 2022-05-04 00:04 | NOTE.SOAP ---
Soap Note Note for Day of Date of Exam: 05/03/22 Subjective Data Subjective Data: Patient admitted with small bowel obstruction. Patient still not passing flatus. Has had significant vomiting . Patient more dehydrated with rise or creatinine from 1.15 now to 2.51 secondary to vomiting and now NG placed with 1200 cc of bilious output in over 12 hours as well as third spacing of fluid. Patient is more tachycardic as well. Objective Data Temperature: 98.5 F Pulse Rate: 111 Respiratory Rate: 20 Blood Pressure: 142/74 O2 Sat by Pulse Oximetry: 98 Objective Data: NG in place. Lungs clear. No SOB. Hernia of mid - abdomen is not reduceable with only minimal tenderness. Potassium is 3.4 Assessment Assessment: Will bolus with fluid and replace K+ and monitor breathing and history of CHF. CXR in AM . Labs in AM. Plan Plan: As above. Once fluid status and potassium corrected if not improving will need abdominal exploration. Patient is at high risk of morbidity and mortality due to her morbid obesity, hx of CHF and the fluid and metabolic disturbances .
[2022-05-04] MEDS: LR 1,000 ML IV 1,000 ML IV SCH ×5 (00:22→17:58)
[2022-05-04 05:03] LABS: BASOPHILS % (AUTO) 0.4 % (0.2-1.0); EOSINOPHILS # (AUTO) 0.3 x10^3/uL (0.0-0.2); EOSINOPHILS % (AUTO) 3.3 % (0.9-2.9); HEMATOCRIT 32.5 % (36.0-47.0); HEMOGLOBIN 10.6 g/dL (12.0-16.0); LYMPHOCYTES # (AUTO) 1.5 X10^3/uL (1.3-2.9); MEAN CORPUSCULAR HEMOGLOBIN 26.5 pg (27.0-34.0); MEAN CORPUSCULAR HGB CONC 32.7 g/dL (33.0-35.0); MEAN PLATELET VOLUME 7.7 fL (7.4-11.0); MONOCYTES % (AUTO) 10.3 % (0.0-13.0); RED BLOOD COUNT 4.01 X10^6/uL (3.5-5.4); WHITE BLOOD COUNT 9.9 X10^3/uL (3.6-10.0)
[2022-05-04 05:17] LABS: ALANINE AMINOTRANSFERASE 22 Units/L (12-78); ALBUMIN 2.5 g/dL (3.4-5.0); ALKALINE PHOSPHATASE 90 Units/L (46-116); ASPARTATE AMINO TRANSFERASE 22 Units/L (15-37); BLOOD UREA NITROGEN 39 mg/dL (7-18); CALCIUM 8.1 mg/dL (8.5-10.1); CARBON DIOXIDE 29.7 mmol/L (21-32); CHLORIDE 102 mmol/L (98-107); COR CA(FOR HYPOALB) 9.3 mg/dL (8.5-10.1); CREATININE 1.49 mg/dL (0.55-1.02); SODIUM 140 mmol/L (136-145); TOTAL PROTEIN 6.9 g/dL (6.4-8.2); eGFR NON BLACK RACES 37 (>60)
[2022-05-04] MEDS: MORPHINE SULFATE INJ 2 MG INJ IVP PRN ×3 (05:38→23:02)
[2022-05-04] MEDS: ZOFRAN INJ 4 MG VIAL IVP PRN ×2 (05:38→23:01)
[2022-05-04] MEDS: POTASSIUM CHLORIDE LIQ 20 MEQ UDC PO PRN (05:38)
[2022-05-04] MEDS: ROCEPHIN VIAL 1 GRAM 1 G in NS 100 ML IV 100 ML IV SCH (10:09)
[2022-05-04] MEDS: PROTONIX INJ 40 MG VIAL IVP SCH ×2 (10:09→21:31)
--- NOTE | 2022-05-04 10:56 | CT ---
HISTORYSMALL BOWEL OBSTRUCTIONSTUDYABDOMEN/PELVIS W/O CONCOMPARISONCT abdomen and pelvis 05/01/2022TECHNIQUEMultiple CT axial images of the abdomen and pelvis were obtained without IV contrast. Coronal and sagittal images were reconstructed. Dose reduction techniques included Automated Exposure Control (AEC) and adjustment of mA and kV.FINDINGSEnteric tube is in the mid stomach. Proximal small bowel dilatation is still present measuring up to 4.2 cm. There may be a very slight dilatation than on the prior study. No pneumoperitoneum.The distal small-bowel and the colon are collapsed. There is trace free fluid in the pelvis. No focal edema. No abscess or evidence for perforation.Umbilical hernia is present containing transverse colon. While the bowel within the hernia sac is not dilated. There is edema at the mesentery protruding through the hernia sac. This may be progressed since the prior study. But the bowel loops entering and exiting the hernia sac are not dilated. So I do not believe this is the etiology of the small bowel obstruction.Other findings are stable. This includes cardiomegaly. Nonobstructing left renal calculus. [place] balloon catheter in the urinary bladder.IMPRESSION1. Small-bowel obstruction; slightly decreased dilatation of the bowel than 3 days ago2. No pneumoperitoneum or abscess3. More edema at the umbilical hernia containing nondilated transverse colonElectronically signed by: Antonio Mills (May 04, 2022 10:55:26)
[2022-05-04] MEDS: LOVENOX INJ 40 MG SYR SC SCH (12:30)
[2022-05-04] MEDS: LOPRESSOR INJ 5 MG AMP IVP PRN ×2 (14:23→15:10)
--- NOTE | 2022-05-04 16:09 | RAD ---
HISTORYSBO, HX OF CHF Relevant Clinical InformationSTUDYCHEST, 1 [id number]/19/2021FINDINGSThe trachea is midline. There is a nasogastric tube below the diaphragm. There is moderate cardiomegaly. There is persistent enlargement of the right hilum unchanged since 05/04/2019 likely vascularThere is no pneumothorax or pleural effusions. No dominant alveolar radiopacities.IMPRESSIONNo evidence of pulmonary edema. Stable moderate cardiomegaly. Persistent right perihilar enlargement of the vascular structuresElectronically signed by: Shirley Hester (May 04, 2022 16:08:22)
--- NOTE | 2022-05-04 16:35 | NOTE.SOAP ---
Soap Note Note for Day of Date of Exam: 05/04/22 Subjective Data Subjective Data: Since yesterday has improved volume status with creatinine decreasing to 1.49 with better urine output but still not passing flatus or bowel movements . NG placed . Still with large bilious output. No SOB. Objective Data Temperature: 97.9 F Pulse Rate: 130 Respiratory Rate: 20 Blood Pressure: 142/74 O2 Sat by Pulse Oximetry: 99 Objective Data: awake and alert , moderate distention of the abdomen, non reduceable ventral hernia and has no tenderness Assessment Assessment: Small bowel obstruction. Still need fluid resuscitation. May require laparotomy for bowel obstruction. Patietn is no low risk and I explained that to her and her family. Plan Plan: Reassess with exam amd labs in AM , 12 lead ECG.
[2022-05-05] MEDS: LR 1,000 ML IV 1,000 ML IV SCH ×4 (01:16→23:16)
[2022-05-05] MEDS: LOPRESSOR INJ 5 MG AMP IVP PRN ×3 (06:02→22:16)
[2022-05-05 06:15] LABS: BASOPHILS # (AUTO) 0.1 X10^3/uL (0.0-0.1); BASOPHILS % (AUTO) 0.6 % (0.2-1.0); EOSINOPHILS # (AUTO) 0.4 x10^3/uL (0.0-0.2); EOSINOPHILS % (AUTO) 4.6 % (0.9-2.9); HEMATOCRIT 34.3 % (36.0-47.0); HEMOGLOBIN 11.5 g/dL (12.0-16.0); LYMPHOCYTES # (AUTO) 1.6 X10^3/uL (1.3-2.9); MEAN CORPUSCULAR HEMOGLOBIN 27.3 pg (27.0-34.0); MEAN CORPUSCULAR HGB CONC 33.4 g/dL (33.0-35.0); MEAN CORPUSCULAR VOLUME 81.8 fL (80.0-100.0); MEAN PLATELET VOLUME 7.7 fL (7.4-11.0); MONOCYTES % (AUTO) 10.9 % (0.0-13.0); NEUTROPHILS # (AUTO) 6.2 x10^3/uL (2.2-4.8); NEUTROPHILS % (AUTO) 66.9 % (42.0-75.0); RED CELL DISTRIBUTION WIDTH 15.1 % (11.6-16.5); WHITE BLOOD COUNT 9.2 X10^3/uL (3.6-10.0)
[2022-05-05 06:40] LABS: ALANINE AMINOTRANSFERASE 24 Units/L (12-78); ALBUMIN 2.5 g/dL (3.4-5.0); ALKALINE PHOSPHATASE 90 Units/L (46-116); ASPARTATE AMINO TRANSFERASE 21 Units/L (15-37); BLOOD UREA NITROGEN 22 mg/dL (7-18); CALCIUM 8.9 mg/dL (8.5-10.1); CARBON DIOXIDE 29.4 mmol/L (21-32); CHLORIDE 104 mmol/L (98-107); COR CA(FOR HYPOALB) 10.1 mg/dL (8.5-10.1); CREATININE 0.91 mg/dL (0.55-1.02); MAGNESIUM 2.3 mg/dL (2.0-2.9); SODIUM 141 mmol/L (136-145); TOTAL PROTEIN 7.2 g/dL (6.4-8.2); eGFR NON BLACK RACES > 60 (>60)
--- NOTE | 2022-05-05 06:44 | RAD ---
HISTORYSMALL BOWEL [id number]/19/2023 .br.br.br.br air-filled loops of small bowel within the central abdomen. Evaluation is limited secondary to photon starvation. A nasogastric tube within the left upper quadrant is noted. No pathological soft tissue mass or calcification can be observed. The bony structures are grossly intact.IMPRESSIONMultiple air-filled loops of small bowel within the central abdomen are observed without definite distal colonic gas identified. Continued follow-up for developing small bowel obstruction will be needed.Electronically signed by: KRYSTLE STEARNS (May 05, 2022 06:42:56)
[2022-05-05] MEDS: PROTONIX INJ 40 MG VIAL IVP SCH ×2 (08:23→21:53)
[2022-05-05] MEDS: K-DUR TAB 20 MEQ PO PRN (08:23)
[2022-05-05] MEDS: ROCEPHIN VIAL 1 GRAM 1 G in NS 100 ML IV 100 ML IV SCH (08:24)
[2022-05-05] MEDS: LOVENOX INJ 40 MG SYR SC SCH (08:24)
--- NOTE | 2022-05-05 15:48 | NOTE.SOAP ---
Soap Note Note for Day of Date of Exam: 05/05/22 Subjective Data Subjective Data: Patient comfortable. fluid status improved and creatinine back to normal at 0.91 and increased urine output. No flaus or BM yet. Potsssium is now normal after replacement. No longer tachycardic No shortness of breath. Objective Data Temperature: 98 F Pulse Rate: 92 Respiratory Rate: 20 Blood Pressure: 149/69 O2 Sat by Pulse Oximetry: 97 Objective Data: Abdomen still distended with incarcerated hernia . Not tender. Assessment Assessment: Small bowel obstruction. Not resolved Plan Plan: Patient will require exploration and lysis of adhesions possible bowel resection and repair of hernia. Patient's fluid status corrected. Alex would like to wait for Dr Ghassan Galvan to perform her surgery when he is back in town on Saturday. She is stable . She also is higher than usual risk for surgery due to her morbid obesity and her history of congestive heart failure. Clinically her heart failure is stable.
[2022-05-05] MEDS ORDERED: PHARMACY CONSULT - TPN XX SCH (18:00)
[2022-05-05] MEDS: MORPHINE SULFATE INJ 2 MG INJ IVP PRN (21:58)
[2022-05-05] MEDS: ZOFRAN INJ 4 MG VIAL IVP PRN (21:58)
[2022-05-06] MEDS: LR 1,000 ML IV 1,000 ML IV SCH (06:06)
[2022-05-06 06:23] LABS: BASOPHILS # (AUTO) 0.1 X10^3/uL (0.0-0.1); BASOPHILS % (AUTO) 0.9 % (0.2-1.0); EOSINOPHILS # (AUTO) 0.4 x10^3/uL (0.0-0.2); EOSINOPHILS % (AUTO) 4.5 % (0.9-2.9); HEMATOCRIT 35.1 % (36.0-47.0); HEMOGLOBIN 11.3 g/dL (12.0-16.0); LYMPHOCYTES # (AUTO) 1.4 X10^3/uL (1.3-2.9); LYMPHOCYTES % (AUTO) 15.1 % (21.0-51.0); MEAN CORPUSCULAR HEMOGLOBIN 26.6 pg (27.0-34.0); MEAN CORPUSCULAR HGB CONC 32.1 g/dL (33.0-35.0); MEAN CORPUSCULAR VOLUME 82.9 fL (80.0-100.0); MEAN PLATELET VOLUME 7.4 fL (7.4-11.0); MONOCYTES % (AUTO) 10.4 % (0.0-13.0); NEUTROPHILS # (AUTO) 6.3 x10^3/uL (2.2-4.8); NEUTROPHILS % (AUTO) 69.1 % (42.0-75.0); RED BLOOD COUNT 4.24 X10^6/uL (3.5-5.4); RED CELL DISTRIBUTION WIDTH 15.1 % (11.6-16.5); WHITE BLOOD COUNT 9.2 X10^3/uL (3.6-10.0)
[2022-05-06 06:49] LABS: ALANINE AMINOTRANSFERASE 17 Units/L (12-78); ALBUMIN 2.4 g/dL (3.4-5.0); ALKALINE PHOSPHATASE 76 Units/L (46-116); ASPARTATE AMINO TRANSFERASE 18 Units/L (15-37); BLOOD UREA NITROGEN 17 mg/dL (7-18); CALCIUM 8.7 mg/dL (8.5-10.1); CARBON DIOXIDE 29.1 mmol/L (21-32); CHLORIDE 105 mmol/L (98-107); CREATININE 0.89 mg/dL (0.55-1.02); SODIUM 143 mmol/L (136-145); TOTAL PROTEIN 6.8 g/dL (6.4-8.2); eGFR NON BLACK RACES > 60 (>60)
[2022-05-06] MEDS: ROCEPHIN VIAL 1 GRAM 1 G in NS 100 ML IV 100 ML IV SCH (09:29)
[2022-05-06] MEDS: KLOR-CON PO PRN (09:29)
[2022-05-06] MEDS: PROTONIX INJ 40 MG VIAL IVP SCH ×2 (09:29→21:25)
[2022-05-06] MEDS: LOVENOX INJ 40 MG SYR SC SCH (09:29)
[2022-05-06] MEDS: MVI IV SCH ×4 (11:07)
[2022-05-06] MEDS: CLINIMIX IV SCH ×4 (11:07)
[2022-05-06] MEDS: TRACE ELEMENTS IV SCH ×4 (11:07)
[2022-05-06] MEDS: [UNRECOGNIZED DRUG - OTHER] IV SCH ×4 (11:07)
--- NOTE | 2022-05-06 11:28 | RAD ---
HISTORYsmall bowell [id number]/20/2023 .br.br.br.br tube coiled within the stomach. Evaluation is limited secondary to photon starvation. Air-filled loops of small bowel within the central abdomen are noted to be present in appear decreased when compared to prior examination. No pathological soft tissue mass or calcification can be observed. The bony structures are grossly intact.IMPRESSIONLimited evaluation but appears to be an improving bowel gas pattern when compared to prior examination. Enteric tube is noted to be presentElectronically signed by: KRYSTLE STEARNS (May 06, 2022 11:27:01)
[2022-05-06 11:36] VITALS: BMI 64.0
[2022-05-06] MEDS ORDERED: BENZOIN COMPOUND TINCTURE ONE (12:44)
[2022-05-06] MEDS: VALIUM INJ IVP PRN ×2 (13:41→23:42)
[2022-05-06] MEDS: MORPHINE SULFATE INJ 2 MG INJ IVP PRN ×2 (13:41→21:26)
--- NOTE | 2022-05-06 19:05 | NOTE.SOAP ---
Soap Note Note for Day of Date of Exam: 05/06/22 Subjective Data Subjective Data: Very stable . One episode of flatus yesterday , none since NG still with bilious output. Objective Data Temperature: 98.6 F Pulse Rate: 119 Respiratory Rate: 20 Blood Pressure: 138/83 O2 Sat by Pulse Oximetry: 92 Objective Data: Benign abdomen , incarcerated ventral hernia , Cr=0.89 Assessment Assessment: Small bowel obstruction . Dr Galvan will re-evaluate in AM. Plan Plan: As above
[2022-05-06] MEDS: ZOFRAN INJ 4 MG VIAL IVP PRN (21:26)
[2022-05-07] MEDS: LOPRESSOR INJ 5 MG AMP IVP PRN ×2 (03:04→09:20)
[2022-05-07 05:01] LABS: BASOPHILS # (AUTO) 0.1 X10^3/uL (0.0-0.1); BASOPHILS % (AUTO) 0.8 % (0.2-1.0); EOSINOPHILS # (AUTO) 0.4 x10^3/uL (0.0-0.2); EOSINOPHILS % (AUTO) 4.5 % (0.9-2.9); HEMATOCRIT 32.8 % (36.0-47.0); HEMOGLOBIN 10.9 g/dL (12.0-16.0); LYMPHOCYTES # (AUTO) 1.3 X10^3/uL (1.3-2.9); LYMPHOCYTES % (AUTO) 13.8 % (21.0-51.0); MEAN CORPUSCULAR HEMOGLOBIN 26.9 pg (27.0-34.0); MEAN CORPUSCULAR HGB CONC 33.2 g/dL (33.0-35.0); MEAN CORPUSCULAR VOLUME 81.2 fL (80.0-100.0); MEAN PLATELET VOLUME 7.6 fL (7.4-11.0); MONOCYTES % (AUTO) 11.1 % (0.0-13.0); NEUTROPHILS # (AUTO) 6.4 x10^3/uL (2.2-4.8); NEUTROPHILS % (AUTO) 69.8 % (42.0-75.0); RED BLOOD COUNT 4.04 X10^6/uL (3.5-5.4); RED CELL DISTRIBUTION WIDTH 15.1 % (11.6-16.5); WHITE BLOOD COUNT 9.2 X10^3/uL (3.6-10.0)
[2022-05-07 05:10] LABS: ALANINE AMINOTRANSFERASE 21 Units/L (12-78); ALBUMIN 2.4 g/dL (3.4-5.0); ALKALINE PHOSPHATASE 77 Units/L (46-116); ASPARTATE AMINO TRANSFERASE 19 Units/L (15-37); BLOOD UREA NITROGEN 14 mg/dL (7-18); CALCIUM 8.6 mg/dL (8.5-10.1); CARBON DIOXIDE 34.1 mmol/L (21-32); CHLORIDE 105 mmol/L (98-107); COR CA(FOR HYPOALB) 9.9 mg/dL (8.5-10.1); COR NA(FOR HYPERGLY) 143 mmol/L (136-145); CREATININE 0.89 mg/dL (0.55-1.02); SODIUM 143 mmol/L (136-145); TOTAL PROTEIN 6.8 g/dL (6.4-8.2); eGFR NON BLACK RACES > 60 (>60)
[2022-05-07] MEDS: POTASSIUM CHLORIDE LIQ 20 MEQ UDC PO PRN (05:57)
[2022-05-07] MEDS: MAGNESIUM SULFATE 1 GRAM/100 mL PREMIX 1 G/100 ML BAG IV PRN ×2 (05:57→09:53)
--- NOTE | 2022-05-07 06:49 | RAD ---
HISTORYSmall bowel [id number]/22/2023 .br.br.br.br side hole just barely within the stomach. Its position is unchanged. Multiple dilated loops of small bowel are present in the mid abdomen with small amount of gas distally within the colon. Findings remain consistent with small-bowel obstruction and not significantly changed from the prior examination. Regional skeleton is intact.IMPRESSIONFindings continue to be suggestive of small-bowel obstruction not significantly changed from the prior examinationElectronically signed by: GAYE TONG (May 07, 2022 06:48:19)
[2022-05-07] MEDS: LR 1,000 ML IV 1,000 ML IV SCH ×3 (07:47→09:25)
[2022-05-07] MEDS: ROCEPHIN VIAL 1 GRAM 1 G in NS 100 ML IV 100 ML IV SCH (09:19)
[2022-05-07] MEDS: PROTONIX INJ 40 MG VIAL IVP SCH ×2 (09:20→23:55)
[2022-05-07] MEDS: VALIUM INJ IVP PRN (09:20)
[2022-05-07] MEDS: LOVENOX INJ 40 MG SYR SC SCH (09:25)
[2022-05-07] MEDS: CLINIMIX IV SCH ×4 (11:48)
[2022-05-07] MEDS: TRACE ELEMENTS IV SCH ×4 (11:48)
[2022-05-07] MEDS: [UNRECOGNIZED DRUG - OTHER] IV SCH ×4 (11:48)
[2022-05-07] MEDS: MVI IV SCH ×4 (11:48)
--- NOTE | 2022-05-07 15:18 | DR.PROGNOT ---
HOSPITAL PROGRESS NOTE Progress Note for Day of: Progress Note Date: 05/07/22 Chief Complaint Chief Complaint: having abdominal cramps on and off but not as severe .. passing flatus , no BM yet . repeated KUB still showing partial SBO with air in the colon . WBC, BUN/Cresat are normal . Pt is afebrile . Past Medical Family Social History Past Med/Fam/Surg Hx: No changes since H&P Changes in Past Med/Fam/Surg Hx: no changes Allergies: Allergies No Known Drug Allergies Allergy (Verified 09/21/21 07:18) Review Of Systems ROS: No change since H&P Vital Signs Vital Signs: Temperature 97.9 F Pulse Rate [Brachial] 92 Pulse Rate 119 Respiratory Rate 18 Blood Pressure [Left Arm] 141/78 Blood Pressure [Right Arm] 168/80 Blood Pressure 134/78 O2 Sat by Pulse Oximetry 98 Physical Exam Oriented: Normal Eyes: Normal Ear: Normal Nose: Normal Throat: Normal Respiratory: Generalized and Diminished Cardiovascular: Normal : Normal GI:Auscultation: Normal GI:Palpation: Normal GI: Tenderness: Rebound and Other (soft abdomen with mild diffuse tenderness , present and BS hypoactive . no rebound ) Skin: Normal Musculoskeletal: Normal Psychiatric: Normal Mood Description: Calm Affect: Normal Speech Pattern: Clear and Appropriate Laboratory and Diagnostics Result Diagrams: 05/07/22 04:30 05/07/22 07:49 Labs: 05/03/22 17:30 Urine,Catheterized Urine Culture - Final 05/01/22 11:10 Urine,Clean Catch Urine Culture - Final Escherichia Coli Klebsiella Oxytoca Laboratory WBC 9.2 X10^3/uL (3.6-10.0) 05/07/22 04:30 RBC 4.04 X10^6/uL (3.5-5.4) 05/07/22 04:30 Hgb 10.9 g/dL (12.0-16.0) L 05/07/22 04:30 Hct 32.8 % (36.0-47.0) L 05/07/22 04:30 MCV 81.2 fL (80.0-100.0) 05/07/22 04:30 MCH 26.9 pg (27.0-34.0) L 05/07/22 04:30 MCHC 33.2 g/dL (33.0-35.0) 05/07/22 04:30 RDW 15.1 % (11.6-16.5) 05/07/22 04:30 Plt Count 303 X10^3/uL (150.0-450.0) 05/07/22 04:30 MPV 7.6 fL (7.4-11.0) 05/07/22 04:30 Neut % (Auto) 69.8 % (42.0-75.0) 05/07/22 04:30 Lymph % (Auto) 13.8 % (21.0-51.0) L 05/07/22 04:30 [place] % (Auto) 11.1 % (0.0-13.0) 05/07/22 04:30 Eos % (Auto) 4.5 % (0.9-2.9) H 05/07/22 04:30 Baso % (Auto) 0.8 % (0.2-1.0) 05/07/22 04:30 Neut # (Auto) 6.4 x10^3/uL (2.2-4.8) H 05/07/22 04:30 Lymph # (Auto) 1.3 X10^3/uL (1.3-2.9) 05/07/22 04:30 [place] # (Auto) 1.0 x10^3/uL (0.3-0.8) H 05/07/22 04:30 Eos # (Auto) 0.4 x10^3/uL (0.0-0.2) H 05/07/22 04:30 Baso # (Auto) 0.1 X10^3/uL (0.0-0.1) 05/07/22 04:30 Absolute Nucleated RBC 0.0 /100WBC 05/07/22 04:30 Sodium 143 mmol/L (136-145) 05/07/22 04:30 Corrected Sodium 143 mmol/L (136-145) 05/07/22 04:30 Potassium 3.5 mmol/L (3.5-5.1) 05/07/22 07:49 Chloride 105 mmol/L (98-107) 05/07/22 04:30 Carbon Dioxide 34.1 mmol/L (21-32) H 05/07/22 04:30 BUN 14 mg/dL (7-18) 05/07/22 04:30 Creatinine 0.89 mg/dL (0.55-1.02) 05/07/22 04:30 Est GFR (MDRD) Af Amer > 60 (>60) 05/07/22 04:30 Est GFR (MDRD) Non-Af > 60 (>60) 05/07/22 04:30 Glucose 116 mg/dL (65-99) H 05/07/22 04:30 Calcium 8.6 mg/dL (8.5-10.1) 05/07/22 04:30 Corrected Calcium 9.9 mg/dL (8.5-10.1) 05/07/22 04:30 Magnesium 1.9 mg/dL (2.0-2.9) L 05/07/22 04:30 Total Bilirubin 0.30 mg/dL (0.2-1.0) 05/07/22 04:30 AST 19 Units/L (15-37) 05/07/22 04:30 ALT 21 Units/L (12-78) 05/07/22 04:30 Alkaline Phosphatase 77 Units/L (46-116) 05/07/22 04:30 B-Natriuretic Peptide 26.9 pg/mL (0-79) 05/02/22 14:20 Total Protein 6.8 g/dL (6.4-8.2) 05/07/22 04:30 Albumin 2.4 g/dL (3.4-5.0) L 05/07/22 04:30 Globulin 4.4 g/dL (2.5-4.5) 05/07/22 04:30 Albumin/Globulin Ratio 0.5 Ratio (1.1-2.1) L 05/07/22 04:30 Amylase 59 Units/L (25-115) 05/01/22 01: Lipase 99 Units/L (73-393) 05/01/22 01:26 Specimen Type Catherized urine 05/03/22 17:30 Urine Color Yellow (YELLOW) 05/03/22 17:30 Urine Appearance Cloudy (CLEAR) 05/03/22 17:30 Urine pH 5.0 (5.0 - 8.0) 05/03/22 17:30 Ur Specific [place] 1.025 (1.000-1.030) 05/03/22 17:30 Urine Protein 2+ (NEGATIVE) 05/03/22 17:30 Urine Glucose (UA) Negative (NEGATIVE) 05/03/22 17:30 Urine Ketones 3+ (NEGATIVE) 05/03/22 17:30 Urine Blood 4+ (NEGATIVE) 05/03/22 17:30 Urine Nitrite Negative (NEGATIVE) 05/03/22 17:30 Urine Bilirubin 1+ (NEGATIVE) 05/03/22 17:30 Urine Urobilinogen Normal (NORMAL) 05/03/22 17:30 Ur Leukocyte Esterase 2+ (NEGATIVE) 05/03/22 17:30 Urine RBC 5-10 /HPF (0-3) A 05/03/22 17:30 Urine WBC 20-30 /HPF (0-5) A 05/03/22 17:30 Ur Squamous Epith Cells Few /HPF (NEGATIVE) 05/03/22 17:30 Amorphous Sediment 2+ /HPF (NEGATIVE) 05/03/22 08:00 Urine Bacteria Trace /HPF (NEGATIVE) 05/03/22 17:30 Hyaline Casts Few /LPF (NEGATIVE) 05/03/22 08:00 Urine Mucus Moderate /HPF (NEGATIVE) 05/03/22 17:30 Ur Culture Indicated? Yes/culture set up 05/03/22 17:30 Assessment and Plan 1: partial small bowel obstruction . incisional hernia . morbid obesity . same NPO, NGT . TPN and IVF, IV Protonix , ABT , repeat KUB in am . d/w Pt surgery in details . Problem Patient Problems: Patient Problems (Updated 05/05/22 @ 05:09 by MANDI MENDOZA) Hypertension (Chronic) I10 Nausea & vomiting (Acute) R11.2 Small bowel obstruction (Acute) K56.609 Supraumbilical hernia (Acute) K43.9 Hypokalemia (Acute) E87.6 Urinary tract infection (Acute) N39.0 CAD (coronary artery disease) (Chronic) I25.10 COPD (chronic obstructive pulmonary disease) (Chronic) J44.9 Small bowel obstruction (Acute) K56.609 Hypokalemia (Acute) E87.6 Ventral hernia (Acute) K43.9 Abdominal pain (Acute) R10.9
[2022-05-08] MEDS: LR 1,000 ML IV 1,000 ML IV SCH ×3 (06:04→18:47)
[2022-05-08 06:35] LABS: BASOPHILS # (AUTO) 0.1 X10^3/uL (0.0-0.1); BASOPHILS % (AUTO) 0.7 % (0.2-1.0); EOSINOPHILS # (AUTO) 0.5 x10^3/uL (0.0-0.2); EOSINOPHILS % (AUTO) 5.9 % (0.9-2.9); HEMATOCRIT 33.2 % (36.0-47.0); HEMOGLOBIN 10.9 g/dL (12.0-16.0); LYMPHOCYTES # (AUTO) 1.5 X10^3/uL (1.3-2.9); LYMPHOCYTES % (AUTO) 16.4 % (21.0-51.0); MEAN CORPUSCULAR HGB CONC 32.8 g/dL (33.0-35.0); MEAN CORPUSCULAR VOLUME 82.2 fL (80.0-100.0); MEAN PLATELET VOLUME 7.6 fL (7.4-11.0); MONOCYTES # (AUTO) 0.9 x10^3/uL (0.3-0.8); MONOCYTES % (AUTO) 10.1 % (0.0-13.0); NEUTROPHILS # (AUTO) 6.1 x10^3/uL (2.2-4.8); NEUTROPHILS % (AUTO) 66.9 % (42.0-75.0); RED BLOOD COUNT 4.03 X10^6/uL (3.5-5.4); WHITE BLOOD COUNT 9.2 X10^3/uL (3.6-10.0)
[2022-05-08 06:52] LABS: ALANINE AMINOTRANSFERASE 23 Units/L (12-78); ALBUMIN 2.5 g/dL (3.4-5.0); ALKALINE PHOSPHATASE 82 Units/L (46-116); ASPARTATE AMINO TRANSFERASE 21 Units/L (15-37); BLOOD UREA NITROGEN 12 mg/dL (7-18); CALCIUM 8.8 mg/dL (8.5-10.1); CARBON DIOXIDE 32.2 mmol/L (21-32); CHLORIDE 103 mmol/L (98-107); CREATININE 0.78 mg/dL (0.55-1.02); MAGNESIUM 2.1 mg/dL (2.0-2.9); SODIUM 144 mmol/L (136-145); TOTAL PROTEIN 7.1 g/dL (6.4-8.2); eGFR NON BLACK RACES > 60 (>60)
--- NOTE | 2022-05-08 08:42 | DR.PROGNOT ---
HOSPITAL PROGRESS NOTE Progress Note for Day of: Progress Note Date: 05/08/22 Chief Complaint Chief Complaint: less abdominal cramps today .. passing flatus and had two BM today .. repeated KUB is pending . WBC, BUN/Creat are normal . Pt is afebrile . Past Medical Family Social History Past Med/Fam/Surg Hx: No changes since H&P Changes in Past Med/Fam/Surg Hx: no changes Allergies: Allergies No Known Drug Allergies Allergy (Verified 09/21/21 07:18) Review Of Systems ROS: No change since H&P Vital Signs Vital Signs: Temperature 98.1 F Pulse Rate [Brachial] 116 Pulse Rate 119 Respiratory Rate 20 Blood Pressure [Left Arm] 170/78 Blood Pressure [Right Arm] 168/80 Blood Pressure 134/78 O2 Sat by Pulse Oximetry 96 Physical Exam Oriented: Normal Eyes: Normal Ear: Normal Nose: Normal Throat: Normal Respiratory: Generalized and Diminished Cardiovascular: Normal : Normal GI:Auscultation: Normal GI:Palpation: Normal GI: Tenderness: Other (soft with moderate distention and diffuse tenderness .. BS+ , hypoactive ..) Skin: Normal Musculoskeletal: Normal Psychiatric: Normal Mood Description: Calm Affect: Normal Speech Pattern: Clear and Appropriate Laboratory and Diagnostics Result Diagrams: 05/08/22 06:10 05/08/22 06:10 Labs: 05/03/22 17:30 Urine,Catheterized Urine Culture - Final 05/01/22 11:10 Urine,Clean Catch Urine Culture - Final Escherichia Coli Klebsiella Oxytoca Laboratory WBC 9.2 X10^3/uL (3.6-10.0) 05/08/22 06:10 RBC 4.03 X10^6/uL (3.5-5.4) 05/08/22 06:10 Hgb 10.9 g/dL (12.0-16.0) L 05/08/22 06:10 Hct 33.2 % (36.0-47.0) L 05/08/22 06:10 MCV 82.2 fL (80.0-100.0) 05/08/22 06:10 MCH 27.0 pg (27.0-34.0) 05/08/22 06:10 MCHC 32.8 g/dL (33.0-35.0) L 05/08/22 06:10 RDW 15.0 % (11.6-16.5) 05/08/22 06:10 Plt Count 280 X10^3/uL (150.0-450.0) 05/08/22 06:10 MPV 7.6 fL (7.4-11.0) 05/08/22 06:10 Neut % (Auto) 66.9 % (42.0-75.0) 05/08/22 06:10 Lymph % (Auto) 16.4 % (21.0-51.0) L 05/08/22 06:10 [place] % (Auto) 10.1 % (0.0-13.0) 05/08/22 06:10 Eos % (Auto) 5.9 % (0.9-2.9) H 05/08/22 06:10 Baso % (Auto) 0.7 % (0.2-1.0) 05/08/22 06:10 Neut # (Auto) 6.1 x10^3/uL (2.2-4.8) H 05/08/22 06:10 Lymph # (Auto) 1.5 X10^3/uL (1.3-2.9) 05/08/22 06:10 [place] # (Auto) 0.9 x10^3/uL (0.3-0.8) H 05/08/22 06:10 Eos # (Auto) 0.5 x10^3/uL (0.0-0.2) H 05/08/22 06:10 Baso # (Auto) 0.1 X10^3/uL (0.0-0.1) 05/08/22 06:10 Absolute Nucleated RBC 0.0 /100WBC 05/08/22 06:10 Sodium 144 mmol/L (136-145) 05/08/22 06:10 Corrected Sodium TNP 05/08/22 06:10 Potassium 3.4 mmol/L (3.5-5.1) L 05/08/22 06:10 Chloride 103 mmol/L (98-107) 05/08/22 06:10 Carbon Dioxide 32.2 mmol/L (21-32) H 05/08/22 06:10 BUN 12 mg/dL (7-18) 05/08/22 06:10 Creatinine 0.78 mg/dL (0.55-1.02) 05/08/22 06:10 Est GFR (MDRD) Af Amer > 60 (>60) 05/08/22 06:10 Est GFR (MDRD) Non-Af > 60 (>60) 05/08/22 06:10 Glucose 94 mg/dL (65-99) 05/08/22 06:10 Calcium 8.8 mg/dL (8.5-10.1) 05/08/22 06:10 Corrected Calcium 10.0 mg/dL (8.5-10.1) 05/08/22 06:10 Magnesium 2.1 mg/dL (2.0-2.9) 05/08/22 06:10 Total Bilirubin 0.30 mg/dL (0.2-1.0) 05/08/22 06:10 AST 21 Units/L (15-37) 05/08/22 06:10 ALT 23 Units/L (12-78) 05/08/22 06:10 Alkaline Phosphatase 82 Units/L (46-116) 05/08/22 06:10 B-Natriuretic Peptide 26.9 pg/mL (0-79) 05/02/22 14:20 Total Protein 7.1 g/dL (6.4-8.2) 05/08/22 06:10 Albumin 2.5 g/dL (3.4-5.0) L 05/08/22 06:10 Globulin 4.6 g/dL (2.5-4.5) H 05/08/22 06:10 Albumin/Globulin Ratio 0.5 Ratio (1.1-2.1) L 05/08/22 06:10 Amylase 59 Units/L (25-115) 05/01/22 01:26 Lipase 99 Units/L (73-393) 05/01/22 01:26 Specimen Type Catherized urine 05/03/22 17:30 Urine Color Yellow (YELLOW) 05/03/22 17:30 Urine Appearance Cloudy (CLEAR) 05/03/22 17:30 Urine pH 5.0 (5.0 - 8.0) 05/03/22 17:30 Ur Specific [place] 1.025 (1.000-1.030) 05/03/22 17:30 Urine Protein 2+ (NEGATIVE) 05/03/22 17:30 Urine Glucose (UA) Negative (NEGATIVE) 05/03/22 17:30 Urine Ketones 3+ (NEGATIVE) 05/03/22 17:30 Urine Blood 4+ (NEGATIVE) 05/03/22 17:30 Urine Nitrite Negative (NEGATIVE) 05/03/22 17:30 Urine Bilirubin 1+ (NEGATIVE) 05/03/22 17:30 Urine Urobilinogen Normal (NORMAL) 05/03/22 17:30 Ur Leukocyte Esterase 2+ (NEGATIVE) 05/03/22 17:30 Urine RBC 5-10 /HPF (0-3) A 05/03/22 17:30 Urine WBC 20-30 /HPF (0-5) A 05/03/22 17:30 Ur Squamous Epith Cells Few /HPF (NEGATIVE) 05/03/22 17:30 Amorphous Sediment 2+ /HPF (NEGATIVE) 05/03/22 08:00 Urine Bacteria Trace /HPF (NEGATIVE) 05/03/22 17:30 Hyaline Casts Few /LPF (NEGATIVE) 05/03/22 08:00 Urine Mucus Moderate /HPF (NEGATIVE) 05/03/22 17:30 Ur Culture Indicated? Yes/culture set up 05/03/22 17:30 Assessment and Plan 1: partial small bowel obstruction . incisional hernia . morbid obesity . same NPO, NGT . TPN and IVF, IV Protonix , ABT , to review KUB. Problem Patient Problems: Patient Problems (Updated 05/05/22 @ 05:09 by MANDI MENDOZA) Hypertension (Chronic) I10 Nausea & vomiting (Acute) R11.2 Small bowel obstruction (Acute) K56.609 Supraumbilical hernia (Acute) K43.9 Hypokalemia (Acute) E87.6 Urinary tract infection (Acute) N39.0 CAD (coronary artery disease) (Chronic) I25.10 COPD (chronic obstructive pulmonary disease) (Chronic) J44.9 Small bowel obstruction (Acute) K56.609 Hypokalemia (Acute) E87.6 Ventral hernia (Acute) K43.9 Abdominal pain (Acute) R10.9
--- NOTE | 2022-05-08 08:44 | DR.PROGNOT ---
HOSPITAL PROGRESS NOTE Chief Complaint Chief Complaint: less abdominal cramps today .. passing flatus and had two BM today .. repeated KUB is pending . WBC, BUN/Creat are normal . Pt is afebrile . Past Medical Family Social History Past Med/Fam/Surg Hx: No changes since H&P Changes in Past Med/Fam/Surg Hx: no changes Allergies: Allergies No Known Drug Allergies Allergy (Verified 09/21/21 07:18) Review Of Systems ROS: No change since H&P Vital Signs Vital Signs: Temperature 98.1 F Pulse Rate [Brachial] 116 Pulse Rate 119 Respiratory Rate 20 Blood Pressure [Left Arm] 170/78 Blood Pressure [Right Arm] 168/80 Blood Pressure 134/78 O2 Sat by Pulse Oximetry 96 Physical Exam Oriented: Normal Eyes: Normal Ear: Normal Nose: Normal Throat: Normal Respiratory: Generalized and Diminished Cardiovascular: Normal : Normal GI:Auscultation: Normal GI:Palpation: Normal GI: Tenderness: Other (soft with moderate distention and diffuse tenderness .. BS+ , hypoactive ..) Skin: Normal Musculoskeletal: Normal Psychiatric: Normal Mood Description: Calm Affect: Normal Speech Pattern: Clear and Appropriate Laboratory and Diagnostics Result Diagrams: 05/08/22 06:10 05/08/22 06:10 Labs: 05/03/22 17:30 Urine,Catheterized Urine Culture - Final 05/01/22 11:10 Urine,Clean Catch Urine Culture - Final Escherichia Coli Klebsiella Oxytoca Laboratory WBC 9.2 X10^3/uL (3.6-10.0) 05/08/22 06:10 RBC 4.03 X10^6/uL (3.5-5.4) 05/08/22 06:10 Hgb 10.9 g/dL (12.0-16.0) L 05/08/22 06:10 Hct 33.2 % (36.0-47.0) L 05/08/22 06:10 MCV 82.2 fL (80.0-100.0) 05/08/22 06:10 MCH 27.0 pg (27.0-34.0) 05/08/22 06:10 MCHC 32.8 g/dL (33.0-35.0) L 05/08/22 06:10 RDW 15.0 % (11.6-16.5) 05/08/22 06:10 Plt Count 280 X10^3/uL (150.0-450.0) 05/08/22 06:10 MPV 7.6 fL (7.4-11.0) 05/08/22 06:10 Neut % (Auto) 66.9 % (42.0-75.0) 05/08/22 06:10 Lymph % (Auto) 16.4 % (21.0-51.0) L 05/08/22 06:10 [place] % (Auto) 10.1 % (0.0-13.0) 05/08/22 06:10 Eos % (Auto) 5.9 % (0.9-2.9) H 05/08/22 06:10 Baso % (Auto) 0.7 % (0.2-1.0) 05/08/22 06:10 Neut # (Auto) 6.1 x10^3/uL (2.2-4.8) H 05/08/22 06:10 Lymph # (Auto) 1.5 X10^3/uL (1.3-2.9) 05/08/22 06:10 [place] # (Auto) 0.9 x10^3/uL (0.3-0.8) H 05/08/22 06:10 Eos # (Auto) 0.5 x10^3/uL (0.0-0.2) H 05/08/22 06:10 Baso # (Auto) 0.1 X10^3/uL (0.0-0.1) 05/08/22 06:10 Absolute Nucleated RBC 0.0 /100WBC 05/08/22 06:10 Sodium 144 mmol/L (136-145) 05/08/22 06:10 Corrected Sodium TNP 05/08/22 06:10 Potassium 3.4 mmol/L (3.5-5.1) L 05/08/22 06:10 Chloride 103 mmol/L (98-107) 05/08/22 06:10 Carbon Dioxide 32.2 mmol/L (21-32) H 05/08/22 06:10 BUN 12 mg/dL (7-18) 05/08/22 06:10 Creatinine 0.78 mg/dL (0.55-1.02) 05/08/22 06:10 Est GFR (MDRD) Af Amer > 60 (>60) 05/08/22 06:10 Est GFR (MDRD) Non-Af > 60 (>60) 05/08/22 06:10 Glucose 94 mg/dL (65-99) 05/08/22 06:10 Calcium 8.8 mg/dL (8.5-10.1) 05/08/22 06:10 Corrected Calcium 10.0 mg/dL (8.5-10.1) 05/08/22 06:10 Magnesium 2.1 mg/dL (2.0-2.9) 05/08/22 06:10 Total Bilirubin 0.30 mg/dL (0.2-1.0) 05/08/22 06:10 AST 21 Units/L (15-37) 05/08/22 06:10 ALT 23 Units/L (12-78) 05/08/22 06:10 Alkaline Phosphatase 82 Units/L (46-116) 05/08/22 06:10 B-Natriuretic Peptide 26.9 pg/mL (0-79) 05/02/22 14:20 Total Protein 7.1 g/dL (6.4-8.2) 05/08/22 06:10 Albumin 2.5 g/dL (3.4-5.0) L 05/08/22 06:10 Globulin 4.6 g/dL (2.5-4.5) H 05/08/22 06:10 Albumin/Globulin Ratio 0.5 Ratio (1.1-2.1) L 05/08/22 06:10 Amylase 59 Units/L (25-115) 05/01/22 01:26 Lipase 99 Units/L (73-393) 05/01/22 01:26 Specimen Type Catherized urine 05/03/22 17:30 Urine Color Yellow (YELLOW) 05/03/22 17: Urine Appearance Cloudy (CLEAR) 05/03/22 17: Urine pH 5.0 (5.0 - 8.0) 05/03/22 17: Ur Specific [place] 1.025 (1.000-1.030) 05/03/22 17:30 Urine Protein 2+ (NEGATIVE) 05/03/22 17: Urine Glucose (UA) Negative (NEGATIVE) 05/03/22 17: Urine Ketones 3+ (NEGATIVE) 05/03/22 17:30 Urine Blood 4+ (NEGATIVE) 05/03/22 17:30 Urine Nitrite Negative (NEGATIVE) 05/03/22 17:30 Urine Bilirubin 1+ (NEGATIVE) 05/03/22 17:30 Urine Urobilinogen Normal (NORMAL) 05/03/22 17:30 Ur Leukocyte Esterase 2+ (NEGATIVE) 05/03/22 17:30 Urine RBC 5-10 /HPF (0-3) A 05/03/22 17:30 Urine WBC 20-30 /HPF (0-5) A 05/03/22 17:30 Ur Squamous Epith Cells Few /HPF (NEGATIVE) 05/03/22 17:30 Amorphous Sediment 2+ /HPF (NEGATIVE) 05/03/22 08:00 Urine Bacteria Trace /HPF (NEGATIVE) 05/03/22 17:30 Hyaline Casts Few /LPF (NEGATIVE) 05/03/22 08:00 Urine Mucus Moderate /HPF (NEGATIVE) 05/03/22 17:30 Ur Culture Indicated? Yes/culture set up 05/03/22 17:30 Assessment and Plan 1: partial small bowel obstruction . incisional hernia . morbid obesity . same NPO, NGT . TPN and IVF, IV Protonix , ABT , to review KUB. Problem Patient Problems: Patient Problems (Updated 05/05/22 @ 05:09 by MANDI MENDOZA) Hypertension (Chronic) I10 Nausea & vomiting (Acute) R11.2 Small bowel obstruction (Acute) K56.609 Supraumbilical hernia (Acute) K43.9 Hypokalemia (Acute) E87.6 Urinary tract infection (Acute) N39.0 CAD (coronary artery disease) (Chronic) I25.10 COPD (chronic obstructive pulmonary disease) (Chronic) J44.9 Small bowel obstruction (Acute) K56.609 Hypokalemia (Acute) E87.6 Ventral hernia (Acute) K43.9 Abdominal pain (Acute) R10.9
[2022-05-08] MEDS: LOVENOX INJ 40 MG SYR SC SCH (09:06)
[2022-05-08] MEDS: ROCEPHIN VIAL 1 GRAM 1 G in NS 100 ML IV 100 ML IV SCH (09:06)
[2022-05-08] MEDS: PROTONIX INJ 40 MG VIAL IVP SCH ×2 (09:06→20:54)
[2022-05-08] MEDS: CLINIMIX IV SCH ×8 (09:07→11:05)
[2022-05-08] MEDS: MVI IV SCH ×8 (09:07→11:05)
[2022-05-08] MEDS: [UNRECOGNIZED DRUG - OTHER] IV SCH ×8 (09:07→11:05)
[2022-05-08] MEDS: TRACE ELEMENTS IV SCH ×8 (09:07→11:05)
--- NOTE | 2022-05-08 12:49 | PCM.PROG ---
Progress Note - Progress Note for Day of Date of Exam: 05/04/22 - Subjective Subjective: IS CURRENTLY INPATIENT STATUS FOR TREATMENT OF A SMALL BOWEL OBSTRUCTION, URINARY TRACT INFECTION, ABDOMINAL PAIN, HYPOKALEMIA. SHE HAS A SUPRAUMBILICAL HERNIA WELL. SIGNIFICANT PMH INCLUDES: CAD, CHF, HYPERLIPIDEMIA, HTN, ASTHMA, COPD, ARTHRITIS, CHRONIC LOW BACK PAIN, , CHOLECYSTECTOMY, HYSTERECTOMY, HERNIA REPAIR, AND BREAST REDUCTION. TODAY, SHE IS ALERT AND ORIENTED, LYING IN BED ON MORNING ROUNDS. SHE CONTINUES TO COMPLAIN OF MID ABDOMINAL PAIN AND NAUSEA. SHE DOES ADMIT TO SOME IMPROVEMENT IN SYMPTOMS SINCE THE NG TUBE WAS PLACED. ON EXAMINATION, NG TUBE TO RIGHT NARE NOTED TO INTERMITTENT SUCTION. HEART IS REGULAR IN RATE AND RHYTHM. BILATERAL LUNGS ARE CLEAR TO AUSCULTATION. ABDOMEN IS ROUND AND NOTED WITH TENDERNESS TO THE MIDDLE AND EPIGASTRIC REGIONS. BOWEL SOUNDS ARE HYPOACTIVE IN ALL QUADRANTS. NO UPPER OR LOWER EXTREMITY EDEMA NOTED. HER VITALS THIS MORNING ARE: 97.9-132-20-98%-134/75. LABS WERE OBTAINED. WBC 9.9, RBC 4.01, HGB 10.6, HCT 32.5, PLT COUNT 284, SODIUM 143, POTASSIUM 3.6, CHLORIDE 105, BUN 17, CREATININE 0.89, GLUCOSE 89, CALCIUM 8.7, TOTAL BILI 0.40, AST 18, ALT 17, ALK PHOS 76, TOTAL PROTEIN 6.8, ALBUMIN 2.4. URINE CULTURE REVEALS GROWTH OF E.COLI AND KLEBSIELLA OXYTOCA. AN ABDOMEN/PELVIS CT WITHOUT CONTRAST WAS REPEATED THIS MORNING. IT REVEALED: 1. Small-bowel obstruction; slightly decreased dilatation of the bowel than 3 days ago2. No pneumoperitoneum or abscess3. More edema at the umbilical hernia containing non-dilated transverse colon. A CHEST XRAY WAS OBTAINED AND REVEALED: The trachea is midline. There is a nasogastric tube below the diaphragm. There is moderate cardiomegaly. There is persistent enlargement o f the right hilum unchanged since 05/04/2019 likely vascular. There is no pneumothorax or pleural effusions. No dominant alveolar radiopacities. SHE IS CURRENTLY RECEIVING NORMAL SALINE AT 50 ML/HR, ROCEPHIN 1G IV DAILY, MORPHINE 2MG IV Q4H PRN, ZOFRAN 4MG IV Q6H PRN, PHENERGAN 25MG IM Q6H PRN, THE POTASSIUM AND MAGNESIUM PROTOCOLS. WE WILL ADD LOVENOX 40MG SC DAILY TODAY. SHE IS CURRENTLY ON A CLEAR LIQUID DIET. SAW PATIENT TODAY AND PLANS TO CONTINUE WITH CURRENT PLAN OF CARE. LAPAROTOMY MAY BE NEEDED, HOWEVER, PATIENT IS AT HIGH RISK FOR COMPLICATIONS. OTHERWISE, WE WILL FOLLOW-UP WITH AM LABS AND REPEAT A KUB IN THE MORNING. TIME SPENT ON CLINICAL ASSESSMENT, REVIWING LABS AND IMAGING, DECISION MAKING, AND DOCUMENTATION GREATER THAN 45 MINUTES. - Past Medical Family Social History Past Med/Fam/Surg Hx: No changes since H&P Allergies: Allergies No Known Drug Allergies Allergy (Verified 09/21/21 07:18) - Review of Systems ROS: No change since H&P - Vital Signs and I&O's Vital Signs: Temperature 98.3 F Pulse Rate [Brachial] 106 Pulse Rate 119 Respiratory Rate 18 Blood Pressure [Left Arm] 129/76 Blood Pressure [Right Arm] 168/80 Blood Pressure 134/78 O2 Sat by Pulse Oximetry 98 Intake and Output: Intake & Output 05/06/22 05/07/22 05/08/22 05/09/22 11:59 11:59 11:59 11:59 Intake Total 3251 / 3251 1220 / 1220 240 / 240 Output Total 2850 / 2850 1650 / 1650 1575 / 1575 Balance 401 / 401 -430 / -430 -1335 / -1335 - Physical Exam Oriented: Normal Eyes: Normal Ear: Normal Nose: Normal Throat: Normal Respiratory: Generalized, Diminished Cardiovascular: Normal : Normal Auscultation: Bowel Sounds: Decreased Palpation: Normal Tenderness: Other (soft with moderate distention and diffuse tenderness .. BS+ , hypoactive ..) Skin: Normal Musculoskeletal: Normal Psychiatric: Normal Mood Description: Calm Affect: Normal Speech Pattern: Clear, Appropriate - Laboratory and Diagnostics Result Diagrams: 05/08/22 06:10 05/08/22 06:10 Labs: 05/03/22 17:30 Urine,Catheterized Urine Culture - Final 05/01/22 11:10 Urine,Clean Catch Urine Culture - Final Escherichia Coli Klebsiella Oxytoca Laboratory WBC 9.2 X10^3/uL (3.6-10.0) 05/08/22 06:10 RBC 4.03 X10^6/uL (3.5-5.4) 05/08/22 06:10 Hgb 10.9 g/dL (12.0-16.0) L 05/08/22 06:10 Hct 33.2 % (36.0-47.0) L 05/08/22 06:10 MCV 82.2 fL (80.0-100.0) 05/08/22 06:10 MCH 27.0 pg (27.0-34.0) 05/08/22 06:10 MCHC 32.8 g/dL (33.0-35.0) L 05/08/22 06:10 RDW 15.0 % (11.6-16.5) 05/08/22 06:10 Plt Count 280 X10^3/uL (150.0-450.0) 05/08/22 06:10 MPV 7.6 fL (7.4-11.0) 05/08/22 06:10 Neut % (Auto) 66.9 % (42.0-75.0) 05/08/22 06:10 Lymph % (Auto) 16.4 % (21.0-51.0) L 05/08/22 06:10 [place] % (Auto) 10.1 % (0.0-13.0) 05/08/22 06:10 Eos % (Auto) 5.9 % (0.9-2.9) H 05/08/22 06:10 Baso % (Auto) 0.7 % (0.2-1.0) 05/08/22 06:10 Neut # (Auto) 6.1 x10^3/uL (2.2-4.8) H 05/08/22 06:10 Lymph # (Auto) 1.5 X10^3/uL (1.3-2.9) 05/08/22 06:10 [place] # (Auto) 0.9 x10^3/uL (0.3-0.8) H 05/08/22 06:10 Eos # (Auto) 0.5 x10^3/uL (0.0-0.2) H 05/08/22 06:10 Baso # (Auto) 0.1 X10^3/uL (0.0-0.1) 05/08/22 06:10 Absolute Nucleated RBC 0.0 /100WBC 05/08/22 06:10 Sodium 144 mmol/L (136-145) 05/08/22 06:10 Corrected Sodium TNP 05/08/22 06:10 Potassium 3.4 mmol/L (3.5-5.1) L 05/08/22 06:10 Chloride 103 mmol/L (98-107) 05/08/22 06:10 Carbon Dioxide 32.2 mmol/L (21-32) H 05/08/22 06:10 BUN 12 mg/dL (7-18) 05/08/22 06:10 Creatinine 0.78 mg/dL (0.55-1.02) 05/08/22 06:10 Est GFR (MDRD) Af Amer > 60 (>60) 05/08/22 06:10 Est GFR (MDRD) Non-Af > 60 (>60) 05/08/22 06:10 Glucose 94 mg/dL (65-99) 05/08/22 06:10 Calcium 8.8 mg/dL (8.5-10.1) 05/08/22 06:10 Corrected Calcium 10.0 mg/dL (8.5-10.1) 05/08/22 06:10 Magnesium 2.1 mg/dL (2.0-2.9) 05/08/22 06:10 Total Bilirubin 0.30 mg/dL (0.2-1.0) 05/08/22 06:10 AST 21 Units/L (15-37) 05/08/22 06:10 ALT 23 Units/L (12-78) 05/08/22 06:10 Alkaline Phosphatase 82 Units/L (46-116) 05/08/22 06:10 B-Natriuretic Peptide 26.9 pg/mL (0-79) 05/02/22 14:20 Total Protein 7.1 g/dL (6.4-8.2) 05/08/22 06:10 Albumin 2.5 g/dL (3.4-5.0) L 05/08/22 06:10 Globulin 4.6 g/dL (2.5-4.5) H 05/08/22 06:10 Albumin/Globulin Ratio 0.5 Ratio (1.1-2.1) L 05/08/22 06:10 Amylase 59 Units/L (25-115) 05/01/22 01:26 Lipase 99 Units/L (73-393) 05/01/22 01:26 Specimen Type Catherized urine 05/03/22 17:30 Urine Color Yellow (YELLOW) 05/03/22 17: Urine Appearance Cloudy (CLEAR) 05/03/22 17: Urine pH 5.0 (5.0 - 8.0) 05/03/22 17:30 Ur Specific [place] 1.025 (1.000-1.030) 05/03/22 17: Urine Protein 2+ (NEGATIVE) 05/03/22 17:30 Urine Glucose (UA) Negative (NEGATIVE) 05/03/22 17: Urine Ketones 3+ (NEGATIVE) 05/03/22 17: Urine Blood 4+ (NEGATIVE) 05/03/22 17: Urine Nitrite Negative (NEGATIVE) 05/03/22: Urine Bilirubin 1+ (NEGATIVE) 05/03/22 17: Urine Urobilinogen Normal (NORMAL) 05/03/22 17:30 Ur Leukocyte Esterase 2+ (NEGATIVE) 05/03/22 17: Urine RBC 5-10 /HPF (0-3) A 05/03/22 17:30 Urine WBC 20-30 /HPF (0-5) A 05/03/22 17:30 Ur Squamous Epith Cells Few /HPF (NEGATIVE) 05/03/22 17: Amorphous Sediment 2+ /HPF (NEGATIVE) 05/03/22 08:00 Urine Bacteria Trace /HPF (NEGATIVE) 05/03/22 17: Hyaline Casts Few /LPF (NEGATIVE) 05/03/22 08:00 Urine Mucus Moderate /HPF (NEGATIVE) 05/03/22 17:30 Ur Culture Indicated? Yes/culture set up 05/03/22 17:30 - Plan (1) Small bowel obstruction Status: Acute Plan: NG TUBE, LOVENOX 40MG SC DAILY, NORMAL SALINE AT 50 ML/HR, ROCEPHIN 1G IV DAILY, MORPHINE 2MG IV Q4H PRN, ZOFRAN 4MG IV Q6H PRN, PHENERGAN 25MG IM Q6H PRN, THE POTASSIUM AND MAGNESIUM PROTOCOLS. (2) Urinary tract infection Status: Acute Qualifiers: Urinary tract infection type: acute cystitis Hematuria presence: without hematuria Qualified Code(s): N30.00 - Acute cystitis without hematuria (3) Supraumbilical hernia Status: Acute (4) Hypokalemia Status: Acute (5) Nausea & vomiting Status: Acute Qualifiers: Vomiting type: unspecified Qualified Code(s): R11.2 - Nausea with vomiting, unspecified (6) Hypertension Status: Chronic Qualifiers: Hypertension type: primary hypertension Qualified Code(s): I10 - Essential (primary) hypertension (7) CAD (coronary artery disease) Status: Chronic Qualifiers: Coronary Disease-Associated Artery/Lesion type: [place] artery [place] vs. transplanted heart: [place] heart Associated angina: unspecified whether angina present Qualified Code(s): I25.10 - Atherosclerotic heart disease of [place] coronary artery without angina pectoris (8) COPD (chronic obstructive pulmonary disease) Status: Chronic Qualifiers: COPD type: unspecified COPD Qualified Code(s): J44.9 - Chronic obstructive pulmonary disease, unspecified
--- NOTE | 2022-05-08 12:56 | PCM.PROG ---
Progress Note - Progress Note for Day of Date of Exam: 05/05/22 - Subjective Subjective: IS CURRENTLY INPATIENT STATUS FOR TREATMENT OF A SMALL BOWEL OBSTRUCTION, URINARY TRACT INFECTION, ABDOMINAL PAIN, HYPOKALEMIA. SHE HAS A SUPRAUMBILICAL HERNIA WELL. SIGNIFICANT PMH INCLUDES: CAD, CHF, HYPERLIPIDEMIA, HTN, ASTHMA, COPD, ARTHRITIS, CHRONIC LOW BACK PAIN, , CHOLECYSTECTOMY, HYSTERECTOMY, HERNIA REPAIR, AND BREAST REDUCTION. TODAY, SHE IS ALERT AND ORIENTED, LYING IN BED ON MORNING ROUNDS. SHE CONTINUES TO COMPLAIN OF MID ABDOMINAL PAIN AND NAUSEA. SHE DOES ADMIT TO SOME IMPROVEMENT IN SYMPTOMS SINCE THE NG TUBE WAS PLACED. ON EXAMINATION, NG TUBE TO RIGHT NARE NOTED TO INTERMITTENT SUCTION. HEART IS REGULAR IN RATE AND RHYTHM. BILATERAL LUNGS ARE CLEAR TO AUSCULTATION. ABDOMEN IS ROUND AND NOTED WITH TENDERNESS TO THE MIDDLE AND EPIGASTRIC REGIONS. BOWEL SOUNDS ARE HYPOACTIVE IN ALL QUADRANTS. NO UPPER OR LOWER EXTREMITY EDEMA NOTED. HER VITALS THIS MORNING ARE: 98.0-73-20-98%-120/63. LABS WERE OBTAINED. WBC 9.2, RBC 4.20, HGB 11.5, HCT 34.3, PLT COUNT 305, SODIUM 141, POTASSIUM 3.7, CHLORIDE 104, BUN 22, CREATININE 0.91, GLUCOSE 88, CALCIUM 8.9, MAGNESIUM 2.3, AST 21, ALT 24, ALK PHOS 90, TOTAL PROTEIN 7.2, ALBUMIN 2.5. URINE CULTURE REVEALS GROWTH OF E.COLI AND KLEBSIELLA OXYTOCA. A KUB WAS OBTAINED AROUND 2100 LAST NIGHT. IT REVEALED: Multiple air- filled loops of small bowel within the central abdomen are observed without definite distal colonic gas identified. Continued follow-up for developing small bowel obstruction will be needed. SHE IS CURRENTLY RECEIVING NORMAL SALINE AT 50 ML/HR, ROCEPHIN 1G IV DAILY, LOVENOX 40MG SC DAILY, MORPHINE 2MG IV Q4H PRN, ZOFRAN 4MG IV Q6H PRN, PHENERGAN 25MG IM Q6H PRN, THE POTASSIUM AND MAGNESIUM PROTOCOLS. SAW PATIENT TODAY AND PLANS TO CONTINUE WITH CURRENT PLAN OF CARE. LAPAROTOMY MAY BE NEEDED, HOWEVER, PATIENT IS AT HIGH RISK FOR COMPLICATIONS. OTHERWISE, WE WILL FOLLOW-UP WITH AM LABS AND REPEAT A KUB IN THE MORNING. TIME SPENT ON CLINICAL ASSESSMENT, REVIWING LABS AND IMAGING, DECISION MAKING, AND DOCUMENTATION GREATER THAN 45 MINUTES. - Past Medical Family Social History Past Med/Fam/Surg Hx: No changes since H&P Allergies: Allergies No Known Drug Allergies Allergy (Verified 09/21/21 07:18) - Review of Systems ROS: No change since H&P - Vital Signs and I&O's Vital Signs: Temperature 98.3 F Pulse Rate [Brachial] 106 Pulse Rate 119 Respiratory Rate 18 Blood Pressure [Left Arm] 129/76 Blood Pressure [Right Arm] 168/80 Blood Pressure 134/78 O2 Sat by Pulse Oximetry 98 Intake and Output: Intake & Output 05/06/22 05/07/22 05/08/22 05/09/22 11:59 11:59 11:59 11:59 Intake Total 3251 / 3251 1220 / 1220 240 / 240 Output Total 2850 / 2850 1650 / 1650 1575 / 1575 Balance 401 / 401 -430 / -430 -1335 / -1335 - Physical Exam Oriented: Normal Eyes: Normal Ear: Normal Nose: Normal Throat: Normal Respiratory: Generalized, Diminished Cardiovascular: Normal : Normal Auscultation: Bowel Sounds: Decreased Palpation: Normal Tenderness: Other (soft with moderate distention and diffuse tenderness .. BS+ , hypoactive ..) Skin: Normal Musculoskeletal: Normal Psychiatric: Normal Mood Description: Calm Affect: Normal Speech Pattern: Clear, Appropriate - Laboratory and Diagnostics Result Diagrams: 05/08/22 06:10 05/08/22 06:10 Labs: 05/03/22 17:30 Urine,Catheterized Urine Culture - Final 05/01/22 11:10 Urine,Clean Catch Urine Culture - Final Escherichia Coli Klebsiella Oxytoca Laboratory WBC 9.2 X10^3/uL (3.6-10.0) 05/08/22 06:10 RBC 4.03 X10^6/uL (3.5-5.4) 05/08/22 06:10 Hgb 10.9 g/dL (12.0-16.0) L 05/08/22 06:10 Hct 33.2 % (36.0-47.0) L 05/08/22 06:10 MCV 82.2 fL (80.0-100.0) 05/08/22 06:10 MCH 27.0 pg (27.0-34.0) 05/08/22 06:10 MCHC 32.8 g/dL (33.0-35.0) L 05/08/22 06:10 RDW 15.0 % (11.6-16.5) 05/08/22 06:10 Plt Count 280 X10^3/uL (150.0-450.0) 05/08/22 06:10 MPV 7.6 fL (7.4-11.0) 05/08/22 06:10 Neut % (Auto) 66.9 % (42.0-75.0) 05/08/22 06:10 Lymph % (Auto) 16.4 % (21.0-51.0) L 05/08/22 06:10 [place] % (Auto) 10.1 % (0.0-13.0) 05/08/22 06:10 Eos % (Auto) 5.9 % (0.9-2.9) H 05/08/22 06:10 Baso % (Auto) 0.7 % (0.2-1.0) 05/08/22 06:10 Neut # (Auto) 6.1 x10^3/uL (2.2-4.8) H 05/08/22 06:10 Lymph # (Auto) 1.5 X10^3/uL (1.3-2.9) 05/08/22 06:10 [place] # (Auto) 0.9 x10^3/uL (0.3-0.8) H 05/08/22 06:10 Eos # (Auto) 0.5 x10^3/uL (0.0-0.2) H 05/08/22 06:10 Baso # (Auto) 0.1 X10^3/uL (0.0-0.1) 05/08/22 06:10 Absolute Nucleated RBC 0.0 /100WBC 05/08/22 06:10 Sodium 144 mmol/L (136-145) 05/08/22 06:10 Corrected Sodium TNP 05/08/22 06:10 Potassium 3.4 mmol/L (3.5-5.1) L 05/08/22 06:10 Chloride 103 mmol/L (98-107) 05/08/22 06:10 Carbon Dioxide 32.2 mmol/L (21-32) H 05/08/22 06:10 BUN 12 mg/dL (7-18) 05/08/22 06:10 Creatinine 0.78 mg/dL (0.55-1.02) 05/08/22 06:10 Est GFR (MDRD) Af Amer > 60 (>60) 05/08/22 06:10 Est GFR (MDRD) Non-Af > 60 (>60) 05/08/22 06:10 Glucose 94 mg/dL (65-99) 05/08/22 06:10 Calcium 8.8 mg/dL (8.5-10.1) 05/08/22 06:10 Corrected Calcium 10.0 mg/dL (8.5-10.1) 05/08/22 06:10 Magnesium 2.1 mg/dL (2.0-2.9) 05/08/22 06:10 Total Bilirubin 0.30 mg/dL (0.2-1.0) 05/08/22 06:10 AST 21 Units/L (15-37) 05/08/22 06:10 ALT 23 Units/L (12-78) 05/08/22 06:10 Alkaline Phosphatase 82 Units/L (46-116) 05/08/22 06:10 B-Natriuretic Peptide 26.9 pg/mL (0-79) 05/02/22 14:20 Total Protein 7.1 g/dL (6.4-8.2) 05/08/22 06:10 Albumin 2.5 g/dL (3.4-5.0) L 05/08/22 06:10 Globulin 4.6 g/dL (2.5-4.5) H 05/08/22 06:10 Albumin/Globulin Ratio 0.5 Ratio (1.1-2.1) L 05/08/22 06:10 Amylase 59 Units/L (25-115) 05/01/22 01:26 Lipase 99 Units/L (73-393) 05/01/22 01:26 Specimen Type Catherized urine 05/03/22 17:30 Urine Color Yellow (YELLOW) 05/03/22 17:30 Urine Appearance Cloudy (CLEAR) 05/03/22 17:30 Urine pH 5.0 (5.0 - 8.0) 05/03/22 17:30 Ur Specific [place] 1.025 (1.000-1.030) 05/03/22 17:30 Urine Protein 2+ (NEGATIVE) 05/03/22 17:30 Urine Glucose (UA) Negative (NEGATIVE) 05/03/22 17:30 Urine Ketones 3+ (NEGATIVE) 05/03/22 17:30 Urine Blood 4+ (NEGATIVE) 05/03/22 17:30 Urine Nitrite Negative (NEGATIVE) 05/03/22 17:30 Urine Bilirubin 1+ (NEGATIVE) 05/03/22 17:30 Urine Urobilinogen Normal (NORMAL) 05/03/22 17:30 Ur Leukocyte Esterase 2+ (NEGATIVE) 05/03/22 17:30 Urine RBC 5-10 /HPF (0-3) A 05/03/22 17:30 Urine WBC 20-30 /HPF (0-5) A 05/03/22 17:30 Ur Squamous Epith Cells Few /HPF (NEGATIVE) 05/03/22 17:30 Amorphous Sediment 2+ /HPF (NEGATIVE) 05/03/22 08:00 Urine Bacteria Trace /HPF (NEGATIVE) 05/03/22 17:30 Hyaline Casts Few /LPF (NEGATIVE) 05/03/22 08:00 Urine Mucus Moderate /HPF (NEGATIVE) 05/03/22 17:30 Ur Culture Indicated? Yes/culture set up 05/03/22 17:30 - Plan (1) Small bowel obstruction Status: Acute Plan: NG TUBE, LOVENOX 40MG SC DAILY, NORMAL SALINE AT 50 ML/HR, ROCEPHIN 1G IV DAILY, MORPHINE 2MG IV Q4H PRN, ZOFRAN 4MG IV Q6H PRN, PHENERGAN 25MG IM Q6H PRN, THE POTASSIUM AND MAGNESIUM PROTOCOLS. (2) Urinary tract infection Status: Acute Qualifiers: Urinary tract infection type: acute cystitis Hematuria presence: without hematuria Qualified Code(s): N30.00 - Acute cystitis without hematuria (3) Supraumbilical hernia Status: Acute (4) Hypokalemia Status: Acute (5) Nausea & vomiting Status: Acute Qualifiers: Vomiting type: unspecified Qualified Code(s): R11.2 - Nausea with vomiting, unspecified (6) Hypertension Status: Chronic Qualifiers: Hypertension type: primary hypertension Qualified Code(s): I10 - Essential (primary) hypertension (7) CAD (coronary artery disease) Status: Chronic Qualifiers: Coronary Disease-Associated Artery/Lesion type: [place] artery [place] vs. t ransplanted heart: [place] heart Associated angina: unspecified whether angina present Qualified Code(s): I25.10 - Atherosclerotic heart disease of [place] coronary artery without angina pectoris (8) COPD (chronic obstructive pulmonary disease) Status: Chronic Qualifiers: COPD type: unspecified COPD Qualified Code(s): J44.9 - Chronic obstructive pulmonary disease, unspecified
--- NOTE | 2022-05-08 13:01 | PCM.PROG ---
Progress Note - Progress Note for Day of Date of Exam: 05/06/22 - Subjective Subjective: IS CURRENTLY INPATIENT STATUS FOR TREATMENT OF A SMALL BOWEL OBSTRUCTION, URINARY TRACT INFECTION, ABDOMINAL PAIN, HYPOKALEMIA. SHE HAS A SUPRAUMBILICAL HERNIA WELL. SIGNIFICANT PMH INCLUDES: CAD, CHF, HYPERLIPIDEMIA, HTN, ASTHMA, COPD, ARTHRITIS, CHRONIC LOW BACK PAIN, , CHOLECYSTECTOMY, HYSTERECTOMY, HERNIA REPAIR, AND BREAST REDUCTION. TODAY, SHE IS ALERT AND ORIENTED, LYING IN BED ON MORNING ROUNDS. SHE CONTINUES TO COMPLAIN OF MID ABDOMINAL PAIN AND NAUSEA. SHE DOES ADMIT TO SOME IMPROVEMENT IN SYMPTOMS SINCE YESTERDAY. ON EXAMINATION, NG TUBE TO RIGHT NARE NOTED TO INTERMITTENT SUCTION. HEART IS REGULAR IN RATE AND RHYTHM. BILATERAL LUNGS ARE CLEAR TO AUSCULTATION. ABDOMEN IS ROUND AND NOTED WITH TENDERNESS TO THE MIDDLE AND EPIGASTRIC REGIONS. BOWEL SOUNDS ARE HYPOACTIVE IN ALL QUADRANTS. NO UPPER OR LOWER EXTREMITY EDEMA NOTED. HER VITALS THIS MORNING ARE: 99.7-98-20-97%-144/67. LABS WERE OBTAINED. WBC 9.2, RBC 4.24, HGB 11.3, HCT 35.1, PLT COUNT 292, SODIUM 143, POTASSIUM 3.6, CHLORIDE 105, CARBON DIOXIDE 34.1, BUN 14, CREATININE 0.89, GLUCOSE 116, CALCIUM 8.6, MAGNESIUM 1.9, AST 19, ALT 21, ALK PHOS 77, TOTAL PROTEIN 6.8, ALBUMIN 2.4. URINE CULTURE REVEALS GROWTH OF E.COLI AND KLEBSIELLA OXYTOCA. A KUB WAS OBTAINED AROUND 2100 LAST NIGHT. IT REVEALED: tube coiled within the stomach. Evaluation is limited secondary to photon starvation. Air-fi lled loops of small bowel within the central abdomen are noted to be present in appear decreased when compared to prior examination. No pathological soft tissue mass or calcification can be observed. The bony structures are grossly intact. SHE IS CURRENTLY RECEIVING NORMAL SALINE, TPN AT 40 ML/HR, VALIUM 5MG IV Q8H PRN, ROCEPHIN 1G IV DAILY, LOVENOX 40MG SC DAILY, MORPHINE 2MG IV Q4H PRN, ZOFRAN 4MG IV Q6H PRN, PHENERGAN 25MG IM Q6H PRN, THE POTASSIUM AND MAGNESIUM PROTOCOLS. SAW PATIENT TODAY AND PLANS TO CONTINUE WITH CURRENT PLAN OF CARE. LAPAROTOMY MAY BE NEEDED, HOWEVER, PATIENT IS AT HIGH RISK FOR COMPLICATIONS. OTHERWISE, WE WILL FOLLOW-UP WITH AM LABS AND REPEAT A KUB IN THE MORNING. TIME SPENT ON CLINICAL ASSESSMENT, REVIWING LABS AND IMAGING, DECISION MAKING, AND DOCUMENTATION GREATER THAN 45 MINUTES. - Past Medical Family Social History Past Med/Fam/Surg Hx: No changes since H&P Allergies: Allergies No Known Drug Allergies Allergy (Verified 09/21/21 07:18) - Review of Systems ROS: No change since H&P - Vital Signs and I&O's Vital Signs: Temperature 98.3 F Pulse Rate [Brachial] 106 Pulse Rate 119 Respiratory Rate 18 Blood Pressure [Left Arm] 129/76 Blood Pressure [Right Arm] 168/80 Blood Pressure 134/78 O2 Sat by Pulse Oximetry 98 Intake and Output: Intake & Output 05/06/22 05/07/22 05/08/22 05/09/22 11:59 11:59 11:59 11:59 Intake Total 3251 / 3251 1220 / 1220 240 / 240 Output Total 2850 / 2850 1650 / 1650 1575 / 1575 Balance 401 / 401 -430 / -430 -1335 / -1335 - Physical Exam Oriented: Normal Eyes: Normal Ear: Normal Nose: Normal Throat: Normal Respiratory: Generalized, Diminished Cardiovascular: Normal : Normal Auscultation: Bowel Sounds: Decreased Tenderness: Other (soft with moderate distention and diffuse tenderness .. BS+ , hypoactive ..) Skin: Normal Musculoskeletal: Normal Psychiatric: Normal Mood Description: Calm Affect: Normal Speech Pattern: Clear, Appropriate - Laboratory and Diagnostics Result Diagrams: 05/08/22 06:10 05/08/22 06:10 Labs: 05/03/22 17:30 Urine,Catheterized Urine Culture - Final 05/01/22 11:10 Urine,Clean Catch Urine Culture - Final Escherichia Coli Klebsiella Oxytoca Laboratory WBC 9.2 X10^3/uL (3.6-10.0) 05/08/22 06:10 RBC 4.03 X10^6/uL (3.5-5.4) 05/08/22 06:10 Hgb 10.9 g/dL (12.0-16.0) L 05/08/22 06:10 Hct 33.2 % (36.0-47.0) L 05/08/22 06:10 MCV 82.2 fL (80.0-100.0) 05/08/22 06:10 MCH 27.0 pg (27.0-34.0) 05/08/22 06:10 MCHC 32.8 g/dL (33.0-35.0) L 05/08/22 06:10 RDW 15.0 % (11.6-16.5) 05/08/22 06:10 Plt Count 280 X10^3/uL (150.0-450.0) 05/08/22 06:10 MPV 7.6 fL (7.4-11.0) 05/08/22 06:10 Neut % (Auto) 66.9 % (42.0-75.0) 05/08/22 06:10 Lymph % (Auto) 16.4 % (21.0-51.0) L 05/08/22 06:10 [place] % (Auto) 10.1 % (0.0-13.0) 05/08/22 06:10 Eos % (Auto) 5.9 % (0.9-2.9) H 05/08/22 06:10 Baso % (Auto) 0.7 % (0.2-1.0) 05/08/22 06:10 Neut # (Auto) 6.1 x10^3/uL (2.2-4.8) H 05/08/22 06:10 Lymph # (Auto) 1.5 X10^3/uL (1.3-2.9) 05/08/22 06:10 [place] # (Auto) 0.9 x10^3/uL (0.3-0.8) H 05/08/22 06:10 Eos # (Auto) 0.5 x10^3/uL (0.0-0.2) H 05/08/22 06:10 Baso # (Auto) 0.1 X10^3/uL (0.0-0.1) 05/08/22 06:10 Absolute Nucleated RBC 0.0 /100WBC 05/08/22 06:10 Sodium 144 mmol/L (136-145) 05/08/22 06:10 Corrected Sodium TNP 05/08/22 06:10 Potassium 3.4 mmol/L (3.5-5.1) L 05/08/22 06:10 Chloride 103 mmol/L (98-107) 05/08/22 06:10 Carbon Dioxide 32.2 mmol/L (21-32) H 05/08/22 06:10 BUN 12 mg/dL (7-18) 05/08/22 06:10 Creatinine 0.78 mg/dL (0.55-1.02) 05/08/22 06:10 Est GFR (MDRD) Af Amer > 60 (>60) 05/08/22 06:10 Est GFR (MDRD) Non-Af > 60 (>60) 05/08/22 06:10 Glucose 94 mg/dL (65-99) 05/08/22 06:10 Calcium 8.8 mg/dL (8.5-10.1) 05/08/22 06:10 Corrected Calcium 10.0 mg/dL (8.5-10.1) 05/08/22 06:10 Magnesium 2.1 mg/dL (2.0-2.9) 05/08/22 06:10 Total Bilirubin 0.30 mg/dL (0.2-1.0) 05/08/22 06:10 AST 21 Units/L (15-37) 05/08/22 06:10 ALT 23 Units/L (12-78) 05/08/22 06:10 Alkaline Phosphatase 82 Units/L (46-116) 05/08/22 06:10 B-Natriuretic Peptide 26.9 pg/mL (0-79) 05/02/22 14:20 Total Protein 7.1 g/dL (6.4-8.2) 05/08/22 06:10 Albumin 2.5 g/dL (3.4-5.0) L 05/08/22 06:10 Globulin 4.6 g/dL (2.5-4.5) H 05/08/22 06:10 Albumin/Globulin Ratio 0.5 Ratio (1.1-2.1) L 05/08/22 06:10 Amylase 59 Units/L (25-115) 05/01/22 01:26 Lipase 99 Units/L (73-393) 05/01/22 01:26 Specimen Type Catherized urine 05/03/22 17:30 Urine Color Yellow (YELLOW) 05/03/22 17:30 Urine Appearance Cloudy (CLEAR) 05/03/22 17:30 Urine pH 5.0 (5.0 - 8.0) 05/03/22 17:30 Ur Specific [place] 1.025 (1.000-1.030) 05/03/22 17:30 Urine Protein 2+ (NEGATIVE) 05/03/22 17:30 Urine Glucose (UA) Negative (NEGATIVE) 05/03/22 17:30 Urine Ketones 3+ (NEGATIVE) 05/03/22 17:30 Urine Blood 4+ (NEGATIVE) 05/03/22 17:30 Urine Nitrite Negative (NEGATIVE) 05/03/22 17:30 Urine Bilirubin 1+ (NEGATIVE) 05/03/22 17:30 Urine Urobilinogen Normal (NORMAL) 05/03/22 17:30 Ur Leukocyte Esterase 2+ (NEGATIVE) 05/03/22 17:30 Urine RBC 5-10 /HPF (0-3) A 05/03/22 17:30 Urine WBC 20-30 /HPF (0-5) A 05/03/22 17:30 Ur Squamous Epith Cells Few /HPF (NEGATIVE) 05/03/22 17:30 Amorphous Sediment 2+ /HPF (NEGATIVE) 05/03/22 08:00 Urine Bacteria Trace /HPF (NEGATIVE) 05/03/22 17:30 Hyaline Casts Few /LPF (NEGATIVE) 05/03/22 08:00 Urine Mucus Moderate /HPF (NEGATIVE) 05/03/22 17:30 Ur Culture Indicated? Yes/culture set up 05/03/22 17:30 - Plan (1) Small bowel obstruction Status: Acute Plan: NG TUBE, LOVENOX 40MG SC DAILY, NORMAL SALINE AT 50 ML/HR, TON AT 40 ML/HR, VALIUM 5MG IV Q8H PRN, ROCEPHIN 1G IV DAILY, MORPHINE 2MG IV Q4H PRN, ZOFRAN 4MG IV Q6H PRN, PHENERGAN 25MG IM Q6H PRN, THE POTASSIUM AND MAGNESIUM PROTOCOLS. (2) Urinary tract infection Status: Acute Qualifiers: Urinary tract infection type: acute cystitis Hematuria presence: without hematuria Qualified Code(s): N30.00 - Acute cystitis without hematuria (3) Supraumbilical hernia Status: Acute (4) Hypokalemia Status: Acute (5) Nausea & vomiting Status: Acute Qualifiers: Vomiting type: unspecified Qualified Code(s): R11.2 - Nausea with vomiting, unspecified (6) Hypertension Status: Chronic Qualifiers: Hypertension type: primary hypertension Qualified Code(s): I10 - Essential (primary) hypertension (7) CAD (coronary artery disease) Status: Chronic Qualifiers: Coronary Disease-Associated Artery/Lesion type: [place] artery [place] vs. transplanted heart: [place] heart Associated angina: unspecified whether angina present Qualified Code(s): I25.10 - Atherosclerotic heart disease of [place] coronary artery without angina pectoris (8) COPD (chronic obstructive pulmonary disease) Status: Chronic Qualifiers: COPD type: unspecified COPD Qualified Code(s): J44.9 - Chronic obstructive pulmonary disease, unspecified
--- NOTE | 2022-05-08 16:59 | RAD ---
HISTORYSMALL BOWELL OBSTRUCTIONSTUDYKUB x-ray one viewCOMPARISONX-ray 05/07/2022FINDINGSEnteric tube passes into the antrum of the stomach. There is a persistent dilated small bowel loops seen in the left upper quadrant measuring 5.2 cm in diameter. Other less prominent small bowel loops are suspected in the mid abdomen. Findings are concerning for small-bowel obstruction. Amount of small-bowel air is slightly diminished since prior study.IMPRESSIONProbable persistent small bowel obstruction.Electronically signed by: Syed Jorgensen (May 08, 2022 16:58:07)
[2022-05-08] MEDS: ZOFRAN INJ 4 MG VIAL IVP PRN (19:46)
[2022-05-08] MEDS ORDERED: TYLENOL 325 MG TAB PO PRN (20:26)
[2022-05-08] MEDS: LOPRESSOR INJ 5 MG AMP IVP PRN (20:54)
[2022-05-09] MEDS: ZOFRAN INJ 4 MG VIAL IVP PRN (02:45)
[2022-05-09] MEDS: LR 1,000 ML IV 1,000 ML IV SCH ×3 (05:43→23:20)
[2022-05-09 06:36] LABS: BASOPHILS # (AUTO) 0.1 X10^3/uL (0.0-0.1); BASOPHILS % (AUTO) 0.6 % (0.2-1.0); EOSINOPHILS # (AUTO) 0.5 x10^3/uL (0.0-0.2); EOSINOPHILS % (AUTO) 5.1 % (0.9-2.9); HEMATOCRIT 32.8 % (36.0-47.0); HEMOGLOBIN 10.6 g/dL (12.0-16.0); LYMPHOCYTES # (AUTO) 1.6 X10^3/uL (1.3-2.9); LYMPHOCYTES % (AUTO) 17.3 % (21.0-51.0); MEAN CORPUSCULAR HEMOGLOBIN 26.4 pg (27.0-34.0); MEAN CORPUSCULAR HGB CONC 32.2 g/dL (33.0-35.0); MEAN CORPUSCULAR VOLUME 82.1 fL (80.0-100.0); MEAN PLATELET VOLUME 7.9 fL (7.4-11.0); MONOCYTES # (AUTO) 0.9 x10^3/uL (0.3-0.8); MONOCYTES % (AUTO) 9.6 % (0.0-13.0); NEUTROPHILS # (AUTO) 6.3 x10^3/uL (2.2-4.8); NEUTROPHILS % (AUTO) 67.4 % (42.0-75.0); RED CELL DISTRIBUTION WIDTH 14.7 % (11.6-16.5); WHITE BLOOD COUNT 9.4 X10^3/uL (3.6-10.0)
[2022-05-09 06:59] LABS: ALANINE AMINOTRANSFERASE 23 Units/L (12-78); ALBUMIN 2.4 g/dL (3.4-5.0); ALKALINE PHOSPHATASE 81 Units/L (46-116); ASPARTATE AMINO TRANSFERASE 27 Units/L (15-37); BLOOD UREA NITROGEN 10 mg/dL (7-18); CALCIUM 8.6 mg/dL (8.5-10.1); CHLORIDE 102 mmol/L (98-107); COR CA(FOR HYPOALB) 9.9 mg/dL (8.5-10.1); COR NA(FOR HYPERGLY) 140 mmol/L (136-145); CREATININE 0.76 mg/dL (0.55-1.02); SODIUM 140 mmol/L (136-145); TOTAL PROTEIN 6.8 g/dL (6.4-8.2); eGFR NON BLACK RACES > 60 (>60)
[2022-05-09] MEDS: ROCEPHIN VIAL 1 GRAM 1 G in NS 100 ML IV 100 ML IV SCH (10:27)
[2022-05-09] MEDS: PROTONIX INJ 40 MG VIAL IVP SCH ×2 (10:28→20:45)
[2022-05-09] MEDS: LOVENOX INJ 40 MG SYR SC SCH (10:28)
--- NOTE | 2022-05-09 10:57 | PCM.PROG ---
Progress Note - Progress Note for Day of Date of Exam: 05/07/22 - Subjective Subjective: IS CURRENTLY INPATIENT STATUS FOR TREATMENT OF A SMALL BOWEL OBSTRUCTION, URINARY TRACT INFECTION, ABDOMINAL PAIN, HYPOKALEMIA. SHE HAS A SUPRAUMBILICAL HERNIA WELL. SIGNIFICANT PMH INCLUDES: CAD, CHF, HYPERLIPIDEMIA, HTN, ASTHMA, COPD, ARTHRITIS, CHRONIC LOW BACK PAIN, , CHOLECYSTECTOMY, HYSTERECTOMY, HERNIA REPAIR, AND BREAST REDUCTION. TODAY, SHE IS ALERT AND ORIENTED, LYING IN BED ON MORNING ROUNDS. SHE COMPLAINS OF ABDOMINAL CRAMPING ON AND OFF, BUT OVERALL, REPORTS DECREASE IN PAIN. SHE IS PASSING FLATUS, BUT NO BOWEL MOVEMENT YET. ON EXAMINATION, NG TUBE TO RIGHT NARE NOTED TO INTERMITTENT SUCTION. HEART IS REGULAR IN RATE AND RHYTHM. BILATERAL LUNGS ARE CLEAR TO AUSCULTATION. ABDOMEN IS ROUND AND NOTED WITH TENDERNESS TO THE MIDDLE AND EPIGASTRIC REGIONS. BOWEL SOUNDS ARE HYPOACTIVE IN ALL QUADRANTS. NO UPPER OR LOWER EXTREMITY EDEMA NOTED. HER VITALS THIS MORNING ARE: 98.3-132-20-97%-134/78. LABS WERE OBTAINED. WBC 9.2, RBC 4.04, HGB 10.9, HCT 32.8, PLT COUNT 303, SODIUM 143, POTASSIUM 3.6, CHLORIDE 105, CARBON DIOXIDE 34.1, BUN 14, CREATININE 0.89, GLUCOSE 116, CALCIUM 8.6, MAGNESIUM 1.9, AST 19, ALT 21, ALK PHOS 77, TOTAL PROTEIN 6.8, ALBUMIN 2.4. URINE CULTURE REVEALS GROWTH OF E.COLI AND KLEBSIELLA OXYTOCA. A KUB WAS OBTAINED THIS MORNING AND REVEALED: Findings continue to be suggestive of small-bowel obstruction not significantly changed from the prior examination. SHE IS CURRENTLY RECEIVING LACTATED FINGERS AT 80 ML/HR, TPN AT 40 ML/HR, VALIUM 5MG IV Q8H PRN, ROCEPHIN 1G IV DAILY, LOVENOX 40MG SC DAILY, MORPHINE 2MG IV Q4H PRN, ZOFRAN 4MG IV Q6H PRN, PHENERGAN 25MG IM Q6H PRN, THE POTASSIUM AND MAGNESIUM PROTOCOLS. SAW PATIENT TODAY AND PLANS TO CONTINUE WITH CURRENT PLAN OF CARE. CONTINUES TO FOLLOW PATIENT AND PLANS TO CONTINUE TO MONITOR TODAY. NO SURGERY AT THIS TIME. OTHERWISE, WE WILL FOLLOW-UP WITH AM LABS AND REPEAT A KUB IN THE MORNING. TIME SPENT ON CLINICAL ASSESSMENT, REVIWING LABS AND IMAGING, DECISION MAKING, AND DOCUMENTATION GREATER THAN 45 MINUTES. - Past Medical Family Social History Past Med/Fam/Surg Hx: No changes since H&P Allergies: Allergies No Known Drug Allergies Allergy (Verified 09/21/21 07:18) - Review of Systems ROS: No change since H&P - Vital Signs and I&O's Vital Signs: Temperature 98.3 F Pulse Rate [Brachial] 75 Pulse Rate 119 Respiratory Rate 18 Blood Pressure [Left Arm] 164/74 Blood Pressure [Right Arm] 168/80 Blood Pressure 135/65 O2 Sat by Pulse Oximetry 98 Intake and Output: Intake & Output 05/06/22 05/07/22 05/08/22 05/09/22 11:59 11:59 11:59 11:59 Intake Total 3251 / 3251 1220 / 1220 240 / 240 3178 / 3178 Output Total 2850 / 2850 1650 / 1650 1575 / 1575 20 / 20 Balance 401 / 401 -430 / -430 -1335 / -1335 3158 / 3158 - Physical Exam Oriented: Normal Eyes: Normal Ear: Normal Nose: Normal Throat: Normal Respiratory: Generalized, Diminished Cardiovascular: Normal : Normal Auscultation: Bowel Sounds: Decreased Palpation: Normal Tenderness: Other (soft with moderate distention and diffuse tenderness .. BS+ , hypoactive ..) Skin: Normal Musculoskeletal: Normal Psychiatric: Normal Mood Description: Calm Affect: Normal Speech Pattern: Clear, Appropriate - Laboratory and Diagnostics Result Diagrams: 05/09/22 06:06 05/09/22 06:06 Labs: 05/03/22 17:30 Urine,Catheterized Urine Culture - Final 05/01/22 11:10 Urine,Clean Catch Urine Culture - Final Escherichia Coli Klebsiella Oxytoca Laboratory WBC 9.4 X10^3/uL (3.6-10.0) 05/09/22 06:06 RBC 4.00 X10^6/uL (3.5-5.4) 05/09/22 06:06 Hgb 10.6 g/dL (12.0-16.0) L 05/09/22 06:06 Hct 32.8 % (36.0-47.0) L 05/09/22 06:06 MCV 82.1 fL (80.0-100.0) 05/09/22 06:06 MCH 26.4 pg (27.0-34.0) L 05/09/22 06:06 MCHC 32.2 g/dL (33.0-35.0) L 05/09/22 06:06 RDW 14.7 % (11.6-16.5) 05/09/22 06:06 Plt Count 267 X10^3/uL (150.0-450.0) 05/09/22 06:06 MPV 7.9 fL (7.4-11.0) 05/09/22 06:06 Neut % (Auto) 67.4 % (42.0-75.0) 05/09/22 06:06 Lymph % (Auto) 17.3 % (21.0-51.0) L 05/09/22 06:06 [place] % (Auto) 9.6 % (0.0-13.0) 05/09/22 06:06 Eos % (Auto) 5.1 % (0.9-2.9) H 05/09/22 06:06 Baso % (Auto) 0.6 % (0.2-1.0) 05/09/22 06:06 Neut # (Auto) 6.3 x10^3/uL (2.2-4.8) H 05/09/22 06:06 Lymph # (Auto) 1.6 X10^3/uL (1.3-2.9) 05/09/22 06:06 [place] # (Auto) 0.9 x10^3/uL (0.3-0.8) H 05/09/22 06:06 Eos # (Auto) 0.5 x10^3/uL (0.0-0.2) H 05/09/22 06:06 Baso # (Auto) 0.1 X10^3/uL (0.0-0.1) 05/09/22 06:06 Absolute Nucleated RBC 0.0 /100WBC 05/09/22 06:06 Sodium 140 mmol/L (136-145) 05/09/22 06:06 Corrected Sodium 140 mmol/L (136-145) 05/09/22 06:06 Potassium 3.5 mmol/L (3.5-5.1) 05/09/22 06:06 Chloride 102 mmol/L (98-107) 05/09/22 06:06 Carbon Dioxide 34.0 mmol/L (21-32) H 05/09/22 06:06 BUN 10 mg/dL (7-18) 05/09/22 06:06 Creatinine 0.76 mg/dL (0.55-1.02) 05/09/22 06:06 Est GFR (MDRD) Af Amer > 60 (>60) 05/09/22 06:06 Est GFR (MDRD) Non-Af > 60 (>60) 05/09/22 06:06 Glucose 113 mg/dL (65-99) H 05/09/22 06:06 Calcium 8.6 mg/dL (8.5-10.1) 05/09/22 06:06 Corrected Calcium 9.9 mg/dL (8.5-10.1) 05/09/22 06:06 Magnesium 2.1 mg/dL (2.0-2.9) 05/08/22 06:10 Total Bilirubin 0.20 mg/dL (0.2-1.0) 05/09/22 06:06 AST 27 Units/L (15-37) 05/09/22 06:06 ALT 23 Units/L (12-78) 05/09/22 06:06 Alkaline Phosphatase 81 Units/L (46-116) 05/09/22 06:06 B-Natriuretic Peptide 26.9 pg/mL (0-79) 05/02/22 14:20 Total Protein 6.8 g/dL (6.4-8.2) 05/09/22 06:06 Albumin 2.4 g/dL (3.4-5.0) L 05/09/22 06:06 Globulin 4.4 g/dL (2.5-4.5) 05/09/22 06:06 Albumin/Globulin Ratio 0.5 Ratio (1.1-2.1) L 05/09/22 06:06 Amylase 59 Units/L (25-115) 05/01/22 01:26 Lipase 99 Units/L (73-393) 05/01/22 01:26 Specimen Type Catherized urine 05/03/22 17:30 Urine Color Yellow (YELLOW) 05/03/22 17:30 Urine Appearance Cloudy (CLEAR) 05/03/22 17:30 Urine pH 5.0 (5.0 - 8.0) 05/03/22 17:30 Ur Specific [place] 1.025 (1.000-1.030) 05/03/22 17:30 Urine Protein 2+ (NEGATIVE) 05/03/22 17:30 Urine Glucose (UA) Negative (NEGATIVE) 05/03/22 17:30 Urine Ketones 3+ (NEGATIVE) 05/03/22 17:30 Urine Blood 4+ (NEGATIVE) 05/03/22 17:30 Urine Nitrite Negative (NEGATIVE) 05/03/22 17:30 Urine Bilirubin 1+ (NEGATIVE) 05/03/22 17:30 Urine Urobilinogen Normal (NORMAL) 05/03/22 17:30 Ur Leukocyte Esterase 2+ (NEGATIVE) 05/03/22 17:30 Urine RBC 5-10 /HPF (0-3) A 05/03/22 17:30 Urine WBC 20-30 /HPF (0-5) A 05/03/22 17:30 Ur Squamous Epith Cells Few /HPF (NEGATIVE) 05/03/22 17:30 Amorphous Sediment 2+ /HPF (NEGATIVE) 05/03/22 08:00 Urine Bacteria Trace /HPF (NEGATIVE) 05/03/22 17:30 Hyaline Casts Few /LPF (NEGATIVE) 05/03/22 08:00 Urine Mucus Moderate /HPF (NEGATIVE) 05/03/22 17:30 Ur Culture Indicated? Yes/culture set up 05/03/22 17:30 - Plan (1) Small bowel obstruction Status: Acute Plan: NG TUBE TO INTERMITTENT SUCTION, LOVENOX 40MG SC DAILY, LR AT 80 ML/HR, TPN AT 40 ML/HR, VALIUM 5MG IV Q8H PRN, ROCEPHIN 1G IV DAILY, MORPHINE 2MG IV Q4H PRN, ZOFRAN 4MG IV Q6H PRN, PHENERGAN 25MG IM Q6H PRN, THE POTASSIUM AND MAGNESIUM PROTOCOLS. (2) Urinary tract infection Status: Acute Qualifiers: Urinary tract infection type: acute cystitis Hematuria presence: without hematuria Qualified Code(s): N30.00 - Acute cystitis without hematuria (3) Supraumbilical hernia Status: Acute (4) Hypokalemia Status: Acute (5) Nausea & vomiting Status: Acute Qualifiers: Vomiting type: unspecified Qualified Code(s): R11.2 - Nausea with vomiting, unspecified (6) Hypertension Status: Chronic Qualifiers: Hypertension type: primary hypertension Qualified Code(s): I10 - Essential (primary) hypertension (7) CAD (coronary artery disease) Status: Chronic Qualifiers: Coronary Disease-Associated Artery/Lesion type: [place] artery [place] vs. transplanted heart: [place] heart Associated angina: unspecified whether angina present Qualified Code(s): I25.10 - Atherosclerotic heart disease of [place] coronary artery without angina pectoris (8) COPD (chronic obstructive pulmonary disease) Status: Chronic Qualifiers: COPD type: unspecified COPD Qualified Code(s): J44.9 - Chronic obstructive pulmonary disease, unspecified
--- NOTE | 2022-05-09 11:07 | PCM.PROG ---
Progress Note - Progress Note for Day of Date of Exam: 05/08/22 - Subjective Subjective: IS CURRENTLY INPATIENT STATUS FOR TREATMENT OF A SMALL BOWEL OBSTRUCTION, URINARY TRACT INFECTION, ABDOMINAL PAIN, HYPOKALEMIA. SHE HAS A SUPRAUMBILICAL HERNIA WELL. SIGNIFICANT PMH INCLUDES: CAD, CHF, HYPERLIPIDEMIA, HTN, ASTHMA, COPD, ARTHRITIS, CHRONIC LOW BACK PAIN, , CHOLECYSTECTOMY, HYSTERECTOMY, HERNIA REPAIR, AND BREAST REDUCTION. TODAY, SHE IS ALERT AND ORIENTED, LYING IN BED ON MORNING ROUNDS. SHE COMPLAINS OF MILD ABDOMINAL CRAMPING ON AND OFF, BUT OVERALL, REPORTS DECREASE IN PAIN. SHE IS PASSING FLATUS AND HAS HAD TWO BOWEL MOVEMENTS TODAY. ON EXAMINATION, NG TUBE TO RIGHT NARE NOTED TO INTERMITTENT SUCTION. HEART IS REGULAR IN RATE AND RHYTHM. BILATERAL LUNGS ARE CLEAR TO AUSCULTATION. ABDOMEN IS ROUND AND NOTED WITH TENDERNESS TO THE MIDDLE AND EPIGASTRIC REGIONS. BOWEL SOUNDS ARE HYPOACTIVE IN ALL QUADRANTS. NO UPPER OR LOWER EXTREMITY EDEMA NOTED. HER VITALS THIS MORNING ARE: 98.3-108-18-98%-129/76. LABS WERE OBTAINED. WBC 9.2, RBC 4.03, HGB 10.9, HCT 33.2, PLT COUNT 280, SODIUM 144, POTASSIUM 3.4, CHLORIDE 103, CARBON DIOXIDE 32.2, BUN 12, CREATININE 0.78, GLUCOSE 94, CALCIUM 8.8, AST 21, ALT 23, ALK PHOS 82, TOTAL PROTEIN 7.1, ALBUMIN 2.5. URINE CULTURE REVEALS GROWTH OF E.COLI AND KLEBSIELLA OXYTOCA. A KUB WAS OBTAINED THIS MORNING AND REVEALED: Enteric tube passes into the antrum of the stomach. There is a persistent dilated small bowel loops seen in the left upper quadrant measuring 5.2 cm in diameter. Other less prominent small bowel loops are suspected in the mid abdomen. Findings are concerning for small-bowel obstruction. Amount of small-bowel air is slightly diminished since prior study. SHE IS CURRENTLY RECEIVING LACTATED FINGERS AT 80 ML/HR, TPN AT 40 ML/HR, VALIUM 5MG IV Q8H PRN, ROCEPHIN 1G IV DAILY, LOVENOX 40MG SC DAILY, MORPHINE 2MG IV Q4H PRN, ZOFRAN 4MG IV Q6H PRN, PHENERGAN 25MG IM Q6H PRN, THE POTASSIUM AND MAGNESIUM PROTOCOLS. SAW PATIENT TODAY AND PLANS TO CONTINUE WITH CURRENT PLAN OF CARE. CONTINUES TO FOLLOW PATIENT AND PLANS TO CONTINUE TO MONITOR TODAY. NO SURGERY AT THIS TIME. OTHERWISE, WE WILL FOLLOW-UP WITH AM LABS AND REPEAT A KUB IN THE MORNING. TIME SPENT ON CLINICAL ASSESSMENT, REVIWING LABS AND IMAGING, DECISION MAKING, AND DOCUMENTATION GREATER THAN 45 MINUTES. - Past Medical Family Social History Past Med/Fam/Surg Hx: No changes since H&P Allergies: Allergies No Known Drug Allergies Allergy (Verified 09/21/21 07:18) - Review of Systems ROS: No change since H&P - Vital Signs and I&O's Vital Signs: Temperature 98.3 F Pulse Rate [Brachial] 75 Pulse Rate 119 Respiratory Rate 18 Blood Pressure [Left Arm] 164/74 Blood Pressure [Right Arm] 168/80 Blood Pressure 135/65 O2 Sat by Pulse Oximetry 98 Intake and Output: Intake & Output 05/06/22 05/07/22 05/08/22 05/09/22 11:59 11:59 11:59 11:59 Intake Total 3251 / 3251 1220 / 1220 240 / 240 3178 / 3178 Output Total 2850 / 2850 1650 / 1650 1575 / 1575 20 / 20 Balance 401 / 401 -430 / -430 -1335 / -1335 3158 / 3158 - Physical Exam Oriented: Normal Eyes: Normal Ear: Normal Nose: Normal Throat: Normal Respiratory: Generalized, Diminished Cardiovascular: Normal : Normal Auscultation: Bowel Sounds: Decreased Palpation: Normal Tenderness: Other (soft with moderate distention and diffuse tenderness .. BS+ , hypoactive ..) Skin: Normal Musculoskeletal: Normal Psychiatric: Normal Mood Description: Calm Affect: Normal Speech Pattern: Clear, Appropriate - Laboratory and Diagnostics Result Diagrams: 05/09/22 06:06 05/09/22 06:06 Labs: 05/03/22 17:30 Urine,Catheterized Urine Culture - Final 05/01/22 11:10 Urine,Clean Catch Urine Culture - Final Escherichia Coli Klebsiella Oxytoca Laboratory WBC 9.4 X10^3/uL (3.6-10.0) 05/09/22 06:06 RBC 4.00 X10^6/uL (3.5-5.4) 05/09/22 06:06 Hgb 10.6 g/dL (12.0-16.0) L 05/09/22 06:06 Hct 32.8 % (36.0-47.0) L 05/09/22 06:06 MCV 82.1 fL (80.0-100.0) 05/09/22 06:06 MCH 26.4 pg (27.0-34.0) L 05/09/22 06:06 MCHC 32.2 g/dL (33.0-35.0) L 05/09/22 06:06 RDW 14.7 % (11.6-16.5) 05/09/22 06:06 Plt Count 267 X10^3/uL (150.0-450.0) 05/09/22 06:06 MPV 7.9 fL (7.4-11.0) 05/09/22 06:06 Neut % (Auto) 67.4 % (42.0-75.0) 05/09/22 06:06 Lymph % (Auto) 17.3 % (21.0-51.0) L 05/09/22 06:06 [place] % (Auto) 9.6 % (0.0-13.0) 05/09/22 06:06 Eos % (Auto) 5.1 % (0.9-2.9) H 05/09/22 06:06 Baso % (Auto) 0.6 % (0.2-1.0) 05/09/22 06:06 Neut # (Auto) 6.3 x10^3/uL (2.2-4.8) H 05/09/22 06:06 Lymph # (Auto) 1.6 X10^3/uL (1.3-2.9) 05/09/22 06:06 [place] # (Auto) 0.9 x10^3/uL (0.3-0.8) H 05/09/22 06:06 Eos # (Auto) 0.5 x10^3/uL (0.0-0.2) H 05/09/22 06:06 Baso # (Auto) 0.1 X10^3/uL (0.0-0.1) 05/09/22 06:06 Absolute Nucleated RBC 0.0 /100WBC 05/09/22 06:06 Sodium 140 mmol/L (136-145) 05/09/22 06:06 Corrected Sodium 140 mmol/L (136-145) 05/09/22 06:06 Potassium 3.5 mmol/L (3.5-5.1) 05/09/22 06:06 Chloride 102 mmol/L (98-107) 05/09/22 06:06 Carbon Dioxide 34.0 mmol/L (21-32) H 05/09/22 06:06 BUN 10 mg/dL (7-18) 05/09/22 06:06 Creatinine 0.76 mg/dL (0.55-1.02) 05/09/22 06:06 Est GFR (MDRD) Af Amer > 60 (>60) 05/09/22 06:06 Est GFR (MDRD) Non-Af > 60 (>60) 05/09/22 06:06 Glucose 113 mg/dL (65-99) H 05/09/22 06:06 Calcium 8.6 mg/dL (8.5-10.1) 05/09/22 06:06 Corrected Calcium 9.9 mg/dL (8.5-10.1) 05/09/22 06:06 Magnesium 2.1 mg/dL (2.0-2.9) 05/08/22 06:10 Total Bilirubin 0.20 mg/dL (0.2-1.0) 05/09/22 06:06 AST 27 Units/L (15-37) 05/09/22 06:06 ALT 23 Units/L (12-78) 05/09/22 06:06 Alkaline Phosphatase 81 Units/L (46-116) 05/09/22 06:06 B-Natriuretic Peptide 26.9 pg/mL (0-79) 05/02/22 14:20 Total Protein 6.8 g/dL (6.4-8.2) 05/09/22 06:06 Albumin 2.4 g/dL (3.4-5.0) L 05/09/22 06:06 Globulin 4.4 g/dL (2.5-4.5) 05/09/22 06:06 Albumin/Globulin Ratio 0.5 Ratio (1.1-2.1) L 05/09/22 06:06 Amylase 59 Units/L (25-115) 05/01/22 01:26 Lipase 99 Units/L (73-393) 05/01/22 01:26 Specimen Type Catherized urine 05/03/22 17:30 Urine Color Yellow (YELLOW) 05/03/22 17: Urine Appearance Cloudy (CLEAR) 05/03/22 17:30 Urine pH 5.0 (5.0 - 8.0) 05/03/22 17:30 Ur Specific [place] 1.025 (1.000-1.030) 05/03/22 17:30 Urine Protein 2+ (NEGATIVE) 05/03/22 17: Urine Glucose (UA) Negative (NEGATIVE) 05/03/22 17:30 Urine Ketones 3+ (NEGATIVE) 05/03/22 17: Urine Blood 4+ (NEGATIVE) 05/03/22 17: Urine Nitrite Negative (NEGATIVE) 05/03/22 17: Urine Bilirubin 1+ (NEGATIVE) 05/03/22 17: Urine Urobilinogen Normal (NORMAL) 05/03/22 17:30 Ur Leukocyte Esterase 2+ (NEGATIVE) 05/03/22 17:30 Urine RBC 5-10 /HPF (0-3) A 05/03/22 17:30 Urine WBC 20-30 /HPF (0-5) A 05/03/22 17:30 Ur Squamous Epith Cells Few /HPF (NEGATIVE) 05/03/22 17:30 Amorphous Sediment 2+ /HPF (NEGATIVE) 05/03/22 08:00 Urine Bacteria Trace /HPF (NEGATIVE) 05/03/22 17:30 Hyaline Casts Few /LPF (NEGATIVE) 05/03/22 08:00 Urine Mucus Moderate /HPF (NEGATIVE) 05/03/22 17:30 Ur Culture Indicated? Yes/culture set up 05/03/22 17:30 - Plan (1) Small bowel obstruction Status: Acute Plan: NG TUBE TO INTERMITTENT SUCTION, LOVENOX 40MG SC DAILY, LR AT 80 ML/HR, TPN AT 40 ML/HR, VALIUM 5MG IV Q8H PRN, ROCEPHIN 1G IV DAILY, MORPHINE 2MG IV Q4H PRN, ZOFRAN 4MG IV Q6H PRN, PHENERGAN 25MG IM Q6H PRN, THE POTASSIUM AND MAGNESIUM PROTOCOLS. (2) Urinary tract infection Status: Acute Qualifiers: Urinary tract infection type: acute cystitis Hematuria presence: without hematuria Qualified Code(s): N30.00 - Acute cystitis without hematuria (3) Supraumbilical hernia Status: Acute (4) Hypokalemia Status: Acute (5) Nausea & vomiting Status: Acute Qualifiers: Vomiting type: unspecified Qualified Code(s): R11.2 - Nausea with vomiting, unspecified (6) Hypertension Status: Chronic Qualifiers: Hypertension type: primary hypertension Qualified Code(s): I10 - Essential (primary) hypertension (7) CAD (coronary artery disease) Status: Chronic Qualifiers: Coronary Disease-Associated Artery/Lesion type: [place] artery [place] vs. transplanted heart: [place] heart Associated angina: unspecified whether angina present Qualified Code(s): I25.10 - Atherosclerotic heart disease of [place] coronary artery without angina pectoris (8) COPD (chronic obstructive pulmonary disease) Status: Chronic Qualifiers: COPD type: unspecified COPD Qualified Code(s): J44.9 - Chronic obstructive pulmonary disease, unspecified
--- NOTE | 2022-05-09 11:12 | DR.PROGNOT ---
HOSPITAL PROGRESS NOTE Progress Note for Day of: Progress Note Date: 05/09/22 Chief Complaint Chief Complaint: only mild to moderate abdominal . had several BMs last nite repeated KUB last one showed gas in small and large bowel .. WBC, BUN/Creat are normal . Pt is afebrile . Past Medical Family Social History Past Med/Fam/Surg Hx: No changes since H&P Changes in Past Med/Fam/Surg Hx: no changes Allergies: Allergies No Known Drug Allergies Allergy (Verified 09/21/21 07:18) Review Of Systems ROS: No change since H&P Vital Signs Vital Signs: Temperature 98.3 F Pulse Rate [Brachial] 75 Pulse Rate 119 Respiratory Rate 18 Blood Pressure [Left Arm] 164/74 Blood Pressure [Right Arm] 168/80 Blood Pressure 135/65 O2 Sat by Pulse Oximetry 98 Physical Exam Oriented: Normal Eyes: Normal Ear: Normal Nose: Normal Throat: Normal Respiratory: Generalized and Diminished Cardiovascular: Normal : Normal GI:Auscultation: Decreased GI:Palpation: Normal GI: Tenderness: Other (soft with moderate distention and diffuse tenderness .. BS+ , hypoactive ..) Skin: Normal Musculoskeletal: Normal Psychiatric: Normal Mood Description: Calm Affect: Normal Speech Pattern: Clear and Appropriate Laboratory and Diagnostics Result Diagrams: 05/09/22 06:06 05/09/22 06:06 Labs: 05/03/22 17:30 Urine,Catheterized Urine Culture - Final 05/01/22 11:10 Urine,Clean Catch Urine Culture - Final Escherichia Coli Klebsiella Oxytoca Laboratory WBC 9.4 X10^3/uL (3.6-10.0) 05/09/22 06:06 RBC 4.00 X10^6/uL (3.5-5.4) 05/09/22 06:06 Hgb 10.6 g/dL (12.0-16.0) L 05/09/22 06:06 Hct 32.8 % (36.0-47.0) L 05/09/22 06:06 MCV 82.1 fL (80.0-100.0) 05/09/22 06:06 MCH 26.4 pg (27.0-34.0) L 05/09/22 06:06 MCHC 32.2 g/dL (33.0-35.0) L 05/09/22 06:06 RDW 14.7 % (11.6-16.5) 05/09/22 06:06 Plt Count 267 X10^3/uL (150.0-450.0) 05/09/22 06:06 MPV 7.9 fL (7.4-11.0) 05/09/22 06:06 Neut % (Auto) 67.4 % (42.0-75.0) 05/09/22 06:06 Lymph % (Auto) 17.3 % (21.0-51.0) L 05/09/22 06:06 [place] % (Auto) 9.6 % (0.0-13.0) 05/09/22 06:06 Eos % (Auto) 5.1 % (0.9-2.9) H 05/09/22 06:06 Baso % (Auto) 0.6 % (0.2-1.0) 05/09/22 06:06 Neut # (Auto) 6.3 x10^3/uL (2.2-4.8) H 05/09/22 06:06 Lymph # (Auto) 1.6 X10^3/uL (1.3-2.9) 05/09/22 06:06 [place] # (Auto) 0.9 x10^3/uL (0.3-0.8) H 05/09/22 06:06 Eos # (Auto) 0.5 x10^3/uL (0.0-0.2) H 05/09/22 06:06 Baso # (Auto) 0.1 X10^3/uL (0.0-0.1) 05/09/22 06:06 Absolute Nucleated RBC 0.0 /100WBC 05/09/22 06:06 Sodium 140 mmol/L (136-145) 05/09/22 06:06 Corrected Sodium 140 mmol/L (136-145) 05/09/22 06:06 Potassium 3.5 mmol/L (3.5-5.1) 05/09/22 06:06 Chloride 102 mmol/L (98-107) 05/09/22 06:06 Carbon Dioxide 34.0 mmol/L (21-32) H 05/09/22 06:06 BUN 10 mg/dL (7-18) 05/09/22 06:06 Creatinine 0.76 mg/dL (0.55-1.02) 05/09/22 06:06 Est GFR (MDRD) Af Amer > 60 (>60) 05/09/22 06:06 Est GFR (MDRD) Non-Af > 60 (>60) 05/09/22 06:06 Glucose 113 mg/dL (65-99) H 05/09/22 06:06 Calcium 8.6 mg/dL (8.5-10.1) 05/09/22 06:06 Corrected Calcium 9.9 mg/dL (8.5-10.1) 05/09/22 06:06 Magnesium 2.1 mg/dL (2.0-2.9) 05/08/22 06:10 Total Bilirubin 0.20 mg/dL (0.2-1.0) 05/09/22 06:06 AST 27 Units/L (15-37) 05/09/22 06:06 ALT 23 Units/L (12-78) 05/09/22 06:06 Alkaline Phosphatase 81 Units/L (46-116) 05/09/22 06:06 B-Natriuretic Peptide 26.9 pg/mL (0-79) 05/02/22 14:20 Total Protein 6.8 g/dL (6.4-8.2) 05/09/22 06:06 Albumin 2.4 g/dL (3.4-5.0) L 05/09/22 06:06 Globulin 4.4 g/dL (2.5-4.5) 05/09/22 06:06 Albumin/Globulin Ratio 0.5 Ratio (1.1-2.1) L 05/09/22 06:06 Amylase 59 Units/L (25-115) 05/01/22 01:26 Lipase 99 Units/L (73-393) 05/01/22 01:26 Specimen Type Catherized urine 05/03/22 17:30 Urine Color Yellow (YELLOW) 05/03/22 17: Urine Appearance Cloudy (CLEAR) 05/03/22 17:30 Urine pH 5.0 (5.0 - 8.0) 05/03/22 17:30 Ur Specific [place] 1.025 (1.000-1.030) 05/03/22 17:30 Urine Protein 2+ (NEGATIVE) 05/03/22 17:30 Urine Glucose (UA) Negative (NEGATIVE) 05/03/22 17:30 Urine Ketones 3+ (NEGATIVE) 05/03/22 17:30 Urine Blood 4+ (NEGATIVE) 05/03/22 17:30 Urine Nitrite Negative (NEGATIVE) 05/03/22 17:30 Urine Bilirubin 1+ (NEGATIVE) 05/03/22 17:30 Urine Urobilinogen Normal (NORMAL) 05/03/22 17:30 Ur Leukocyte Esterase 2+ (NEGATIVE) 05/03/22 17:30 Urine RBC 5-10 /HPF (0-3) A 05/03/22 17:30 Urine WBC 20-30 /HPF (0-5) A 05/03/22 17:30 Ur Squamous Epith Cells Few /HPF (NEGATIVE) 05/03/22 17:30 Amorphous Sediment 2+ /HPF (NEGATIVE) 05/03/22 08:00 Urine Bacteria Trace /HPF (NEGATIVE) 05/03/22 17:30 Hyaline Casts Few /LPF (NEGATIVE) 05/03/22 08:00 Urine Mucus Moderate /HPF (NEGATIVE) 05/03/22 17:30 Ur Culture Indicated? Yes/culture set up 05/03/22 17:30 Assessment and Plan 1: partial small bowel obstruction . incisional hernia . abdominal adhesions .. morbid obesity . same TPN and IVF, IV Protonix , ABT ,ambulate , to review KUB from today .. Problem Patient Problems: Patient Problems (Updated 05/08/22 @ 12:49 by Miles Anguiano) Hypertension (Chronic) I10 Nausea & vomiting (Acute) R11.2 Small bowel obstruction (Acute) K56.609 Supraumbilical hernia (Acute) K43.9 Hypokalemia (Acute) E87.6 Urinary tract infection (Acute) N39.0 CAD (coronary artery disease) (Chronic) I25.10 COPD (chronic obstructive pulmonary disease) (Chronic) J44.9 Small bowel obstruction (Acute) K56.609 Hypokalemia (Acute) E87.6 Ventral hernia (Acute) K43.9 Abdominal pain (Acute) R10.9
--- NOTE | 2022-05-09 12:19 | RAD ---
HISTORYPainSTUDYKUBCOMPARISON0 05/08/2022FINDINGSMultiple supine views of the abdomen are technically nondiagnostic.IMPRESSIONNondiagnostic KUB; repeat recommended.Electronically signed by: OPAL ABRAMS (May 09, 2022 12:18:42)
[2022-05-09] MEDS: MVI IV SCH ×4 (18:22)
[2022-05-09] MEDS: [UNRECOGNIZED DRUG - OTHER] IV SCH ×4 (18:22)
[2022-05-09] MEDS: TRACE ELEMENTS IV SCH ×4 (18:22)
[2022-05-09] MEDS: CLINIMIX IV SCH ×4 (18:22)
[2022-05-10 05:50] LABS: BASOPHILS % (AUTO) 0.6 % (0.2-1.0); EOSINOPHILS # (AUTO) 0.4 x10^3/uL (0.0-0.2); EOSINOPHILS % (AUTO) 5.6 % (0.9-2.9); HEMOGLOBIN 10.5 g/dL (12.0-16.0); LYMPHOCYTES # (AUTO) 1.4 X10^3/uL (1.3-2.9); LYMPHOCYTES % (AUTO) 17.4 % (21.0-51.0); MEAN CORPUSCULAR HEMOGLOBIN 26.9 pg (27.0-34.0); MEAN CORPUSCULAR HGB CONC 32.9 g/dL (33.0-35.0); MEAN CORPUSCULAR VOLUME 81.7 fL (80.0-100.0); MEAN PLATELET VOLUME 7.7 fL (7.4-11.0); MONOCYTES # (AUTO) 0.6 x10^3/uL (0.3-0.8); MONOCYTES % (AUTO) 7.7 % (0.0-13.0); NEUTROPHILS # (AUTO) 5.5 x10^3/uL (2.2-4.8); NEUTROPHILS % (AUTO) 68.7 % (42.0-75.0); RED BLOOD COUNT 3.92 X10^6/uL (3.5-5.4); RED CELL DISTRIBUTION WIDTH 14.7 % (11.6-16.5)
[2022-05-10 06:04] LABS: ALANINE AMINOTRANSFERASE 32 Units/L (12-78); ALBUMIN 2.4 g/dL (3.4-5.0); ALKALINE PHOSPHATASE 84 Units/L (46-116); ASPARTATE AMINO TRANSFERASE 36 Units/L (15-37); BLOOD UREA NITROGEN 8 mg/dL (7-18); CALCIUM 8.3 mg/dL (8.5-10.1); CARBON DIOXIDE 32.1 mmol/L (21-32); CHLORIDE 103 mmol/L (98-107); COR CA(FOR HYPOALB) 9.6 mg/dL (8.5-10.1); SODIUM 140 mmol/L (136-145); TOTAL PROTEIN 6.9 g/dL (6.4-8.2); eGFR NON BLACK RACES > 60 (>60)
[2022-05-10] MEDS: K-DUR TAB 20 MEQ PO PRN (06:26)
[2022-05-10] MEDS: KLOR-CON PO PRN (06:29)
[2022-05-10] MEDS: ROCEPHIN VIAL 1 GRAM 1 G in NS 100 ML IV 100 ML IV SCH (08:31)
[2022-05-10] MEDS: PROTONIX INJ 40 MG VIAL IVP SCH ×2 (08:33→21:22)
[2022-05-10] MEDS: LOVENOX INJ 40 MG SYR SC SCH (08:36)
[2022-05-10] MEDS: LR 1,000 ML IV 1,000 ML IV SCH ×2 (08:37→21:22)
[2022-05-10] MEDS ORDERED: ULTRAM PO PRN (10:12)
[2022-05-10] MEDS ORDERED: VOLTAREN 1 % GEL MULTI DOSE TUBE TOP PRN (10:12)
[2022-05-10] MEDS ORDERED: FLUTICASONE PROPIONATE IN SCH (10:15)
[2022-05-10] MEDS: MICRO K EXTEN CAP 10 MEQ PO SCH (10:56)
[2022-05-10] MEDS: NEURONTIN CAP 300 MG PO SCH ×4 (10:56→21:22)
[2022-05-10] MEDS: TOPAMAX PO SCH (10:57)
[2022-05-10] MEDS: SYNTHROID 50 mcg TAB PO SCH (10:58)
[2022-05-10] MEDS: NORMODYNE TAB 200 MG PO SCH ×2 (11:00→21:25)
[2022-05-10] MEDS: TRACE ELEMENTS IV SCH ×10 (11:02→16:16)
[2022-05-10] MEDS: MVI IV SCH ×10 (11:02→16:16)
[2022-05-10] MEDS: CLINIMIX IV SCH ×10 (11:02→16:16)
[2022-05-10] MEDS: [UNRECOGNIZED DRUG - OTHER] IV SCH ×10 (11:02→16:16)
--- NOTE | 2022-05-10 11:42 | PCM.PROG ---
Progress Note - Progress Note for Day of Date of Exam: 05/09/22 - Subjective Subjective: IS CURRENTLY INPATIENT STATUS FOR TREATMENT OF A SMALL BOWEL OBSTRUCTION, URINARY TRACT INFECTION, ABDOMINAL PAIN, HYPOKALEMIA. SHE HAS A SUPRAUMBILICAL HERNIA WELL. SIGNIFICANT PMH INCLUDES: CAD, CHF, HYPERLIPIDEMIA, HTN, ASTHMA, COPD, ARTHRITIS, CHRONIC LOW BACK PAIN, , CHOLECYSTECTOMY, HYSTERECTOMY, HERNIA REPAIR, AND BREAST REDUCTION. TODAY, SHE IS ALERT AND ORIENTED, LYING IN BED ON MORNING ROUNDS. SHE COMPLAINS OF MILD ABDOMINAL CRAMPING ON AND OFF, BUT OVERALL, REPORTS DECREASE IN PAIN. SHE IS PASSING FLATUS AND HAS HAD SEVERAL BOWEL MOVEMENTS OVER THE PAST TWO DAYS. THE NG TUBE WAS REMOVED LAST NIGHT. ON EXAMINATION, HEART IS REGULAR IN RATE AND RHYTHM. BILATERAL LUNGS ARE CLEAR TO AUSCULTATION. ABDOMEN IS ROUND AND NOTED WITH MILD TENDERNESS TO THE MIDDLE AND EPIGASTRIC REGIONS. BOWEL SOUNDS ARE HYPOACTIVE IN ALL QUADRANTS. NO UPPER OR LOWER EXTREMITY EDEMA NOTED. HER VITALS THIS MORNING ARE: 98.3-75-18-97%-164/74. LABS WERE OBTAINED. WBC 9.4, RBC 4.00, HGB 10.6, HCT 32.8, PLT COUNT 267, SODIUM 140, POTASSIUM 3.5, CHLORIDE 102, BUN 10, CREATININE 0.76, GLUCOSE 113. CALCIUM 8.6, TOTAL BILI 0.20, AST 27, ALT 23, ALK PHOS 81, TOTAL PROTEIN 6.8, ALBUMIN 2.4. URINE CULTURE REVEALS GROWTH OF E.COLI AND KLEBSIELLA OXYTOCA. A KUB WAS OBTAINED THIS MORNING AND REVEALED: There is demonstrated moderate dilatation of small bowel segments without significant colon dilatation. The findings remain suggestive of small-bowel obstruction. SHE IS CURRENTLY RECEIVING LACTATED FINGERS AT 80 ML/HR, TPN AT 40 ML/HR, VALIUM 5MG IV Q8H PRN, ROCEPHIN 1G IV DAILY, LOVENOX 40MG SC DAILY, MORPHINE 2MG IV Q4H PRN, ZOFRAN 4MG IV Q6H PRN, PHENERGAN 25MG IM Q6H PRN, THE POTASSIUM AND MAGNESIUM PROTOCOLS. SAW PATIENT TODAY AND PLANS TO CONTINUE WITH CURRENT PLAN OF CARE. CONTINUES TO FOLLOW PATIENT AND PLANS TO CONTINUE TO MONITOR TODAY. NO SURGERY AT THIS TIME. SHE IS ON A FULL LIQUID DIET. OTHERWISE, WE WILL FOLLOW-UP WITH AM LABS AND REPEAT A KUB IN THE MORNING. TIME SPENT ON CLINICAL ASSESSMENT, REVIWING LABS AND IMAGING, DECISION MAKING, AND DOCUMENTATION GREATER THAN 45 MINUTES. - Past Medical Family Social History Past Med/Fam/Surg Hx: No changes since H&P Allergies: Allergies No Known Drug Allergies Allergy (Verified 09/21/21 07:18) - Review of Systems ROS: No change since H&P - Vital Signs and I&O's Vital Signs: Temperature 98.4 F Pulse Rate [Brachial] 85 Pulse Rate 119 Respiratory Rate 18 Blood Pressure [Left Arm] 172/81 Blood Pressure [Right Arm] 168/80 Blood Pressure 135/65 O2 Sat by Pulse Oximetry 99 Intake and Output: Intake & Output 05/07/22 05/08/22 05/09/22 05/10/22 11:59 11:59 11:59 11:59 Intake Total 1220 / 1220 240 / 240 3178 / 3178 2059 Output Total 1650 / 1650 1575 / 1575 Balance -430 / -430 -1335 / -1335 3158 / 3158 2059 - Physical Exam Oriented: Normal Eyes: Normal Ear: Normal Nose: Normal Throat: Normal Respiratory: Generalized, Diminished Cardiovascular: Normal : Normal Auscultation: Bowel Sounds: Decreased Tenderness: Other (soft with moderate distention and diffuse tenderness .. BS+ , hypoactive ..) Skin: Normal Musculoskeletal: Normal Psychiatric: Normal Mood Description: Calm Affect: Normal Speech Pattern: Clear, Appropriate - Laboratory and Diagnostics Result Diagrams: 05/10/22 05:36 05/10/22 08:46 Labs: 05/03/22 17:30 Urine,Catheterized Urine Culture - Final 05/01/22 11:10 Urine,Clean Catch Urine Culture - Final Escherichia Coli Klebsiella Oxytoca Laboratory WBC 8.0 X10^3/uL (3.6-10.0) 05/10/22 05:36 RBC 3.92 X10^6/uL (3.5-5.4) 05/10/22 05:36 Hgb 10.5 g/dL (12.0-16.0) L 05/10/22 05:36 Hct 32.0 % (36.0-47.0) L 05/10/22 05:36 MCV 81.7 fL (80.0-100.0) 05/10/22 05:36 MCH 26.9 pg (27.0-34.0) L 05/10/22 05:36 MCHC 32.9 g/dL (33.0-35.0) L 05/10/22 05:36 RDW 14.7 % (11.6-16.5) 05/10/22 05:36 Plt Count 243 X10^3/uL (150.0-450.0) 05/10/22 05:36 MPV 7.7 fL (7.4-11.0) 05/10/22 05:36 Neut % (Auto) 68.7 % (42.0-75.0) 05/10/22 05:36 Lymph % (Auto) 17.4 % (21.0-51.0) L 05/10/22 05:36 [place] % (Auto) 7.7 % (0.0-13.0) 05/10/22 05:36 Eos % (Auto) 5.6 % (0.9-2.9) H 05/10/22 05:36 Baso % (Auto) 0.6 % (0.2-1.0) 05/10/22 05:36 Neut # (Auto) 5.5 x10^3/uL (2.2-4.8) H 05/10/22 05:36 Lymph # (Auto) 1.4 X10^3/uL (1.3-2.9) 05/10/22 05:36 [place] # (Auto) 0.6 x10^3/uL (0.3-0.8) 05/10/22 05:36 Eos # (Auto) 0.4 x10^3/uL (0.0-0.2) H 05/10/22 05:36 Baso # (Auto) 0.0 X10^3/uL (0.0-0.1) 05/10/22 05:36 Absolute Nucleated RBC 0.0 /100WBC 05/10/22 05:36 Sodium 140 mmol/L (136-145) 05/10/22 05:36 Corrected Sodium TNP 05/10/22 05:36 Potassium 3.4 mmol/L (3.5-5.1) L 05/10/22 08:46 Chloride 103 mmol/L (98-107) 05/10/22 05:36 Carbon Dioxide 32.1 mmol/L (21-32) H 05/10/22 05:36 BUN 8 mg/dL (7-18) 05/10/22 05:36 Creatinine 0.80 mg/dL (0.55-1.02) 05/10/22 05:36 Est GFR (MDRD) Af Amer > 60 (>60) 05/10/22 05:36 Est GFR (MDRD) Non-Af > 60 (>60) 05/10/22 05:36 Glucose 94 mg/dL (65-99) 05/10/22 05:36 Calcium 8.3 mg/dL (8.5-10.1) L 05/10/22 05:36 Corrected Calcium 9.6 mg/dL (8.5-10.1) 05/10/22 05:36 Magnesium 1.5 mg/dL (2.0-2.9) L 05/10/22 05:36 Total Bilirubin 0.30 mg/dL (0.2-1.0) 05/10/22 05:36 AST 36 Units/L (15-37) 05/10/22 05:36 ALT 32 Units/L (12-78) 05/10/22 05:36 Alkaline Phosphatase 84 Units/L (46-116) 05/10/22 05:36 B-Natriuretic Peptide 26.9 pg/mL (0-79) 05/02/22 14:20 Total Protein 6.9 g/dL (6.4-8.2) 05/10/22 05:36 Albumin 2.4 g/dL (3.4-5.0) L 05/10/22 05:36 Globulin 4.5 g/dL (2.5-4.5) 05/10/22 05:36 Albumin/Globulin Ratio 0.5 Ratio (1.1-2.1) L 05/10/22 05:36 Amylase 59 Units/L (25-115) 05/01/22 01:26 Lipase 99 Units/L (73-393) 05/01/22 01:26 Specimen Type Catherized urine 05/03/22 17:30 Urine Color Yellow (YELLOW) 05/03/22 17:30 Urine Appearance Cloudy (CLEAR) 05/03/22 17:30 Urine pH 5.0 (5.0 - 8.0) 05/03/22 17:30 Ur Specific [place] 1.025 (1.000-1.030) 05/03/22 17:30 Urine Protein 2+ (NEGATIVE) 05/03/22 17:30 Urine Glucose (UA) Negative (NEGATIVE) 05/03/22 17:30 Urine Ketones 3+ (NEGATIVE) 05/03/22 17:30 Urine Blood 4+ (NEGATIVE) 05/03/22 17:30 Urine Nitrite Negative (NEGATIVE) 05/03/22 17:30 Urine Bilirubin 1+ (NEGATIVE) 05/03/22 17:30 Urine Urobilinogen Normal (NORMAL) 05/03/22 17:30 Ur Leukocyte Esterase 2+ (NEGATIVE) 05/03/22 17:30 Urine RBC 5-10 /HPF (0-3) A 05/03/22 17:30 Urine WBC 20-30 /HPF (0-5) A 05/03/22 17:30 Ur Squamous Epith Cells Few /HPF (NEGATIVE) 05/03/22 17:30 Amorphous Sediment 2+ /HPF (NEGATIVE) 05/03/22 08:00 Urine Bacteria Trace /HPF (NEGATIVE) 05/03/22 17:30 Hyaline Casts Few /LPF (NEGATIVE) 05/03/22 08:00 Urine Mucus Moderate /HPF (NEGATIVE) 05/03/22 17:30 Ur Culture Indicated? Yes/culture set up 05/03/22 17:30 - Plan (1) Small bowel obstruction Status: Acute Plan: FULL LIQUID DIET, LOVENOX 40MG SC DAILY, LR AT 80 ML/HR, TPN AT 40 ML/HR, VALIUM 5MG IV Q8H PRN, ROCEPHIN 1G IV DAILY, MORPHINE 2MG IV Q4H PRN, ZOFRAN 4MG IV Q6H PRN, PHENERGAN 25MG IM Q6H PRN, THE POTASSIUM AND MAGNESIUM PROTOCOLS. (2) Urinary tract infection Status: Acute Qualifiers: Urinary tract infection type: acute cystitis Hematuria presence: without hematuria Qualified Code(s): N30.00 - Acute cystitis without hematuria (3) Supraumbilical hernia Status: Acute (4) Hypokalemia Status: Acute (5) Nausea & vomiting Status: Acute Qualifiers: Vomiting type: unspecified Qualified Code(s): R11.2 - Nausea with vomiting, unspecified (6) Hypertension Status: Chronic Qualifiers: Hypertension type: primary hypertension Qualified Code(s): I10 - Essential (primary) hypertension (7) CAD (coronary artery disease) Status: Chronic Qualifiers: Coronary Disease-Associated Artery/Lesion type: [place] artery [place] vs. transplanted heart: [place] heart Associated angina: unspecified whether angina present Qualified Code(s): I25.10 - Atherosclerotic heart disease of [place] coronary artery without angina pectoris (8) COPD (chronic obstructive pulmonary disease) Status: Chronic Qualifiers: COPD type: unspecified COPD Qualified Code(s): J44.9 - Chronic obstructive pulmonary disease, unspecified
--- NOTE | 2022-05-10 14:01 | RAD ---
HISTORY:Small bowel obstructionStudy: KUBComparison:Multiple recent prior radiographs, CT 05/04/2022Findings:Evaluation is limited by patient body habitus. Dilated small bowel loops are seen in the mid abdomen consistent with obstruction. This may be partial as there is some gas seen in the colon.IMPRESSION:Persistent dilated small bowel loops in the mid abdomen suggesting at least partial obstruction.Electronically signed by: EFE HALE (May 10, 2022 13:59:54)
--- NOTE | 2022-05-10 14:30 | DR.PROGNOT ---
HOSPITAL PROGRESS NOTE Progress Note for Day of: Progress Note Date: 05/10/22 Chief Complaint Chief Complaint: only mild abdominal . had several BMs last night repeated KUB last one showed gas in small and large bowel ..mild partial SBO . WBC, BUN/Creat are normal . Pt is afebrile . Past Medical Family Social History Past Med/Fam/Surg Hx: No changes since H&P Changes in Past Med/Fam/Surg Hx: no changes Allergies: Allergies No Known Drug Allergies Allergy (Verified 09/21/21 07:18) Review Of Systems ROS: No change since H&P Vital Signs Vital Signs: Temperature 98.3 F Pulse Rate [Brachial] 103 Pulse Rate 119 Respiratory Rate 18 Blood Pressure [Left Arm] 136/78 Blood Pressure [Right Arm] 168/80 Blood Pressure 135/65 O2 Sat by Pulse Oximetry 99 Physical Exam Oriented: Normal Eyes: Normal Ear: Normal Nose: Normal Throat: Normal Respiratory: Generalized and Diminished Cardiovascular: Normal : Normal GI:Auscultation: Decreased GI:Palpation: Normal GI: Tenderness: Other (soft with moderate distention and diffuse tenderness .. BS+ , hypoactive ..) Skin: Normal Musculoskeletal: Normal Psychiatric: Normal Mood Description: Calm Affect: Normal Speech Pattern: Clear and Appropriate Laboratory and Diagnostics Result Diagrams: 05/10/22 05:36 05/10/22 08:46 Labs: 05/03/22 17:30 Urine,Catheterized Urine Culture - Final 05/01/22 11:10 Urine,Clean Catch Urine Culture - Final Escherichia Coli Klebsiella Oxytoca Laboratory WBC 8.0 X10^3/uL (3.6-10.0) 05/10/22 05:36 RBC 3.92 X10^6/uL (3.5-5.4) 05/10/22 05:36 Hgb 10.5 g/dL (12.0-16.0) L 05/10/22 05:36 Hct 32.0 % (36.0-47.0) L 05/10/22 05:36 MCV 81.7 fL (80.0-100.0) 05/10/22 05:36 MCH 26.9 pg (27.0-34.0) L 05/10/22 05:36 MCHC 32.9 g/dL (33.0-35.0) L 05/10/22 05:36 RDW 14.7 % (11.6-16.5) 05/10/22 05:36 Plt Count 243 X10^3/uL (150.0-450.0) 05/10/22 05:36 MPV 7.7 fL (7.4-11.0) 05/10/22 05:36 Neut % (Auto) 68.7 % (42.0-75.0) 05/10/22 05:36 Lymph % (Auto) 17.4 % (21.0-51.0) L 05/10/22 05:36 [place] % (Auto) 7.7 % (0.0-13.0) 05/10/22 05:36 Eos % (Auto) 5.6 % (0.9-2.9) H 05/10/22 05:36 Baso % (Auto) 0.6 % (0.2-1.0) 05/10/22 05:36 Neut # (Auto) 5.5 x10^3/uL (2.2-4.8) H 05/10/22 05:36 Lymph # (Auto) 1.4 X10^3/uL (1.3-2.9) 05/10/22 05:36 [place] # (Auto) 0.6 x10^3/uL (0.3-0.8) 05/10/22 05:36 Eos # (Auto) 0.4 x10^3/uL (0.0-0.2) H 05/10/22 05:36 Baso # (Auto) 0.0 X10^3/uL (0.0-0.1) 05/10/22 05:36 Absolute Nucleated RBC 0.0 /100WBC 05/10/22 05:36 Sodium 140 mmol/L (136-145) 05/10/22 05:36 Corrected Sodium TNP 05/10/22 05:36 Potassium 3.4 mmol/L (3.5-5.1) L 05/10/22 08:46 Chloride 103 mmol/L (98-107) 05/10/22 05:36 Carbon Dioxide 32.1 mmol/L (21-32) H 05/10/22 05:36 BUN 8 mg/dL (7-18) 05/10/22 05:36 Creatinine 0.80 mg/dL (0.55-1.02) 05/10/22 05:36 Est GFR (MDRD) Af Amer > 60 (>60) 05/10/22 05:36 Est GFR (MDRD) Non-Af > 60 (>60) 05/10/22 05:36 Glucose 94 mg/dL (65-99) 05/10/22 05:36 Calcium 8.3 mg/dL (8.5-10.1) L 05/10/22 05:36 Corrected Calcium 9.6 mg/dL (8.5-10.1) 05/10/22 05:36 Magnesium 1.5 mg/dL (2.0-2.9) L 05/10/22 05:36 Total Bilirubin 0.30 mg/dL (0.2-1.0) 05/10/22 05:36 AST 36 Units/L (15-37) 05/10/22 05:36 ALT 32 Units/L (12-78) 05/10/22 05:36 Alkaline Phosphatase 84 Units/L (46-116) 05/10/22 05:36 B-Natriuretic Peptide 26.9 pg/mL (0-79) 05/02/22 14:20 Total Protein 6.9 g/dL (6.4-8.2) 05/10/22 05:36 Albumin 2.4 g/dL (3.4-5.0) L 05/10/22 05:36 Globulin 4.5 g/dL (2.5-4.5) 05/10/22 05:36 Albumin/Globulin Ratio 0.5 Ratio (1.1-2.1) L 05/10/22 05:36 Amylase 59 Units/L (25-115) 05/01/22 01:26 Lipase 99 Units/L (73-393) 05/01/22 01:26 Specimen Type Catherized urine 05/03/22 17:30 Urine Color Yellow (YELLOW) 05/03/22 17:30 Urine Appearance Cloudy (CLEAR) 05/03/22 17:30 Urine pH 5.0 (5.0 - 8.0) 05/03/22 17:30 Ur Specific [place] 1.025 (1.000-1.030) 05/03/22 17:30 Urine Protein 2+ (NEGATIVE) 05/03/22 17:30 Urine Glucose (UA) Negative (NEGATIVE) 05/03/22 17:30 Urine Ketones 3+ (NEGATIVE) 05/03/22 17:30 Urine Blood 4+ (NEGATIVE) 05/03/22 17:30 Urine Nitrite Negative (NEGATIVE) 05/03/22 17:30 Urine Bilirubin 1+ (NEGATIVE) 05/03/22 17:30 Urine Urobilinogen Normal (NORMAL) 05/03/22 17:30 Ur Leukocyte Esterase 2+ (NEGATIVE) 05/03/22 17:30 Urine RBC 5-10 /HPF (0-3) A 05/03/22 17:30 Urine WBC 20-30 /HPF (0-5) A 05/03/22 17:30 Ur Squamous Epith Cells Few /HPF (NEGATIVE) 05/03/22 17:30 Amorphous Sediment 2+ /HPF (NEGATIVE) 05/03/22 08:00 Urine Bacteria Trace /HPF (NEGATIVE) 05/03/22 17:30 Hyaline Casts Few /LPF (NEGATIVE) 05/03/22 08:00 Urine Mucus Moderate /HPF (NEGATIVE) 05/03/22 17:30 Ur Culture Indicated? Yes/culture set up 05/03/22 17:30 Assessment and Plan 1: partial small bowel obstruction .seems to be chronic .. incisional hernia . abdominal adhesions .. morbid obesity . same TPN and IVF, IV Protonix , ABT ,ambulate , regular diet , small meals . if tolerating diet could be d/c even with mild chronic partial SBO .. with OP F/U .. Problem Patient Problems: Patient Problems (Updated 05/08/22 @ 12:49 by Miles Anguiano) Hypertension (Chronic) I10 Nausea & vomiting (Acute) R11.2 Small bowel obstruction (Acute) K56.609 Supraumbilical hernia (Acute) K43.9 Hypokalemia (Acute) E87.6 Urinary tract infection (Acute) N39.0 CAD (coronary artery disease) (Chronic) I25.10 COPD (chronic obstructive pulmonary disease) (Chronic) J44.9 Small bowel obstruction (Acute) K56.609 Hypokalemia (Acute) E87.6 Ventral hernia (Acute) K43.9 Abdominal pain (Acute) R10.9
[2022-05-10] MEDS: ZOFRAN INJ 4 MG VIAL IVP PRN (16:22)
[2022-05-10] MEDS: NORCO 10/325 TAB PO PRN (16:22)
[2022-05-10] MEDS ORDERED: AMBIEN PO SCH (21:00)
[2022-05-10] MEDS ORDERED: PULMICORT NEB TX 0.5 MG NEB SCH (21:00)
[2022-05-10] MEDS: VALIUM INJ IVP PRN (22:53)
[2022-05-11] MEDS: LR 1,000 ML IV 1,000 ML IV SCH ×2 (01:28→12:16)
[2022-05-11] MEDS: NORCO 10/325 TAB PO PRN ×2 (01:31→08:51)
[2022-05-11 05:09] LABS: BASOPHILS % (AUTO) 0.7 % (0.2-1.0); EOSINOPHILS # (AUTO) 0.4 x10^3/uL (0.0-0.2); HEMATOCRIT 28.9 % (36.0-47.0); HEMOGLOBIN 9.4 g/dL (12.0-16.0); LYMPHOCYTES # (AUTO) 1.4 X10^3/uL (1.3-2.9); LYMPHOCYTES % (AUTO) 21.3 % (21.0-51.0); MEAN CORPUSCULAR HEMOGLOBIN 26.8 pg (27.0-34.0); MEAN CORPUSCULAR HGB CONC 32.6 g/dL (33.0-35.0); MEAN CORPUSCULAR VOLUME 82.4 fL (80.0-100.0); MEAN PLATELET VOLUME 8.4 fL (7.4-11.0); MONOCYTES # (AUTO) 0.6 x10^3/uL (0.3-0.8); MONOCYTES % (AUTO) 9.8 % (0.0-13.0); NEUTROPHILS # (AUTO) 4.1 x10^3/uL (2.2-4.8); NEUTROPHILS % (AUTO) 62.2 % (42.0-75.0); RED BLOOD COUNT 3.51 X10^6/uL (3.5-5.4); RED CELL DISTRIBUTION WIDTH 15.4 % (11.6-16.5); WHITE BLOOD COUNT 6.6 X10^3/uL (3.6-10.0)
[2022-05-11 05:21] LABS: ALANINE AMINOTRANSFERASE 24 Units/L (12-78); ALBUMIN 2.1 g/dL (3.4-5.0); ALKALINE PHOSPHATASE 72 Units/L (46-116); ASPARTATE AMINO TRANSFERASE 26 Units/L (15-37); BLOOD UREA NITROGEN 9 mg/dL (7-18); CALCIUM 7.9 mg/dL (8.5-10.1); CARBON DIOXIDE 29.8 mmol/L (21-32); CHLORIDE 105 mmol/L (98-107); COR CA(FOR HYPOALB) 9.4 mg/dL (8.5-10.1); COR NA(FOR HYPERGLY) 139 mmol/L (136-145); CREATININE 0.87 mg/dL (0.55-1.02); MAGNESIUM 1.6 mg/dL (2.0-2.9); SODIUM 138 mmol/L (136-145); eGFR NON BLACK RACES > 60 (>60)
[2022-05-11] MEDS: MAGNESIUM SULFATE 1 GRAM/100 mL PREMIX 1 G/100 ML BAG IV PRN (05:54)
[2022-05-11] MEDS: PROTONIX INJ 40 MG VIAL IVP SCH (08:49)
[2022-05-11] MEDS: LOVENOX INJ 40 MG SYR SC SCH (08:49)
[2022-05-11] MEDS: NORMODYNE TAB 200 MG PO SCH (08:50)
[2022-05-11] MEDS: ROCEPHIN VIAL 1 GRAM 1 G in NS 100 ML IV 100 ML IV SCH (08:50)
[2022-05-11] MEDS: NEURONTIN CAP 300 MG PO SCH (08:50)
[2022-05-11] MEDS: SYNTHROID 50 mcg TAB PO SCH (08:51)
[2022-05-11] MEDS: MICRO K EXTEN CAP 10 MEQ PO SCH (08:51)
[2022-05-11] MEDS: TOPAMAX PO SCH (08:52)
[2022-05-11] MEDS: ZOFRAN INJ 4 MG VIAL IVP PRN (08:54)
[2022-05-11 09:57] VITALS: BP 105/55
[2022-05-11] MEDS: MVI IV SCH ×6 (12:15)
[2022-05-11] MEDS: CLINIMIX IV SCH ×6 (12:15)
[2022-05-11] MEDS: TRACE ELEMENTS IV SCH ×6 (12:15)
[2022-05-11] MEDS: [UNRECOGNIZED DRUG - OTHER] IV SCH ×6 (12:15)
--- NOTE | 2022-05-11 12:26 | PCM.PROG ---
Progress Note - Progress Note for Day of Date of Exam: 05/10/22 - Subjective Subjective: IS CURRENTLY INPATIENT STATUS FOR TREATMENT OF A SMALL BOWEL OBSTRUCTION, URINARY TRACT INFECTION, ABDOMINAL PAIN, HYPOKALEMIA. SHE HAS A SUPRAUMBILICAL HERNIA WELL. SIGNIFICANT PMH INCLUDES: CAD, CHF, HYPERLIPIDEMIA, HTN, ASTHMA, COPD, ARTHRITIS, CHRONIC LOW BACK PAIN, , CHOLECYSTECTOMY, HYSTERECTOMY, HERNIA REPAIR, AND BREAST REDUCTION. TODAY, SHE IS ALERT AND ORIENTED, LYING IN BED ON MORNING ROUNDS. SHE COMPLAINS OF ONLY MILD ABDOMINAL CRAMPING ON AND OFF, BUT OVERALL, REPORTS DECREASE IN PAIN. SHE IS PASSING FLATUS AND HAS HAD SEVERAL BOWEL MOVEMENTS OVER THE PAST TWO DAYS. THE NG TUBE HAS BEEN REMOVED. SHE IS TOLERATING A FULL LIQUID DIET WELL. ON EXAMINATION, HEART IS REGULAR IN RATE AND RHYTHM. BILATERAL LUNGS ARE CLEAR TO AUSCULTATION. ABDOMEN IS ROUND AND NOTED WITH MILD TENDERNESS TO THE MIDDLE AND EPIGASTRIC REGIONS. BOWEL SOUNDS ARE HYPOACTIVE IN ALL QUADRANTS. NO UPPER OR LOWER EXTREMITY EDEMA NOTED. HER VITALS THIS MORNING ARE: 98.3-103-18-99%-1 36/78. LABS WERE OBTAINED. WBC 8.0, RBC 3.92, HGB 10.5, HCT 32.0, SODIUM 140, POTASSIUM 3.2, CHLORIDE 103, CARBON DIOXIDE 32.1, GLUCOSE 94, CALCIUM 8.3, MAGNESIUM 1.5, AST 36, ALT 32, ALK PHOS 84, TOTAL PROTEIN 6.9, ALBUMIN 2.4. URINE CULTURE REVEALS GROWTH OF E.COLI AND KLEBSIELLA OXYTOCA. A KUB WAS OBTAINED THIS MORNING AND REVEALED: Persistent dilated small bowel loops in the mid abdomen suggesting at least partial obstruction. SHE IS CURRENTLY RECEIVING LACTATED RINGERS AT 80 ML/HR, TPN AT 40 ML/HR, VALIUM 5MG IV Q8H PRN, ROCEPHIN 1G IV DAILY, LOVENOX 40MG SC DAILY, MORPHINE 2MG IV Q4H PRN, ZOFRAN 4MG IV Q6H PRN, PHENERGAN 25MG IM Q6H PRN, THE POTASSIUM AND MAGNESIUM PROTOCOLS. DR.ALSAAD Rubin CONTINUES TO FOLLOW PATIENT AND PLANS TO CONTINUE TO MONITOR TODAY. NO SURGERY AT THIS TIME. HE WILL ADVANCE HER TO A REGULAR DIET. OTHERWISE, WE WILL FOLLOW- UP WITH AM LABS AND REPEAT A KUB IN THE MORNING. TIME SPENT ON CLINICAL ASSESSMENT, REVIWING LABS AND IMAGING, DECISION MAKING, AND DOCUMENTATION GREATER THAN 45 MINUTES. - Past Medical Family Social History Past Med/Fam/Surg Hx: No changes since H&P Allergies: Allergies No Known Drug Allergies Allergy (Verified 09/21/21 07:18) - Review of Systems ROS: No change since H&P - Vital Signs and I&O's Vital Signs: Temperature 97.7 F Pulse Rate [Brachial] 82 Pulse Rate 72 Respiratory Rate 20 Blood Pressure [Left Arm] 105/55 Blood Pressure [Right Arm] 168/80 Blood Pressure 135/65 O2 Sat by Pulse Oximetry 99 Intake and Output: Intake & Output 05/09/22 05/10/22 05/11/22 05/12/22 11:59 11:59 11:59 11:59 Intake Total 3178 / 3178 2059 / 2059 4990 / 4990 Output Total Balance 3158 / 3158 2059 4990 / 4990 - Physical Exam Oriented: Normal Eyes: Normal Ear: Normal Nose: Normal Throat: Normal Respiratory: Generalized, Diminished Cardiovascular: Normal : Normal Auscultation: Bowel Sounds: Decreased Palpation: Normal Tenderness: Mild Skin: Normal Musculoskeletal: Normal Psychiatric: Normal Mood Description: Calm Affect: Normal Speech Pattern: Clear, Appropriate - Laboratory and Diagnostics Result Diagrams: 05/11/22 04:40 05/11/22 04:40 Labs: 05/03/22 17:30 Urine,Catheterized Urine Culture - Final 05/01/22 11:10 Urine,Clean Catch Urine Culture - Final Escherichia Coli Klebsiella Oxytoca Laboratory WBC 6.6 X10^3/uL (3.6-10.0) 05/11/22 04:40 RBC 3.51 X10^6/uL (3.5-5.4) 05/11/22 04:40 Hgb 9.4 g/dL (12.0-16.0) L 05/11/22 04:40 Hct 28.9 % (36.0-47.0) L 05/11/22 04:40 MCV 82.4 fL (80.0-100.0) 05/11/22 04:40 MCH 26.8 pg (27.0-34.0) L 05/11/22 04:40 MCHC 32.6 g/dL (33.0-35.0) L 05/11/22 04:40 RDW 15.4 % (11.6-16.5) 05/11/22 04:40 Plt Count 186 X10^3/uL (150.0-450.0) 05/11/22 04:40 MPV 8.4 fL (7.4-11.0) 05/11/22 04:40 Neut % (Auto) 62.2 % (42.0-75.0) 05/11/22 04:40 Lymph % (Auto) 21.3 % (21.0-51.0) 05/11/22 04:40 [place] % (Auto) 9.8 % (0.0-13.0) 05/11/22 04:40 Eos % (Auto) 6.0 % (0.9-2.9) H 05/11/22 04:40 Baso % (Auto) 0.7 % (0.2-1.0) 05/11/22 04:40 Neut # (Auto) 4.1 x10^3/uL (2.2-4.8) 05/11/22 04:40 Lymph # (Auto) 1.4 X10^3/uL (1.3-2.9) 05/11/22 04:40 [place] # (Auto) 0.6 x10^3/uL (0.3-0.8) 05/11/22 04:40 Eos # (Auto) 0.4 x10^3/uL (0.0-0.2) H 05/11/22 04:40 Baso # (Auto) 0.0 X10^3/uL (0.0-0.1) 05/11/22 04:40 Absolute Nucleated RBC 0.0 /100WBC 05/11/22 04:40 Sodium 138 mmol/L (136-145) 05/11/22 04:40 Corrected Sodium 139 mmol/L (136-145) 05/11/22 04:40 Potassium 3.8 mmol/L (3.5-5.1) 05/11/22 04:40 Chloride 105 mmol/L (98-107) 05/11/22 04:40 Carbon Dioxide 29.8 mmol/L (21-32) 05/11/22 04:40 BUN 9 mg/dL (7-18) 05/11/22 04:40 Creatinine 0.87 mg/dL (0.55-1.02) 05/11/22 04:40 Est GFR (MDRD) Af Amer > 60 (>60) 05/11/22 04:40 Est GFR (MDRD) Non-Af > 60 (>60) 05/11/22 04:40 Glucose 130 mg/dL (65-99) H 05/11/22 04:40 Calcium 7.9 mg/dL (8.5-10.1) L 05/11/22 04:40 Corrected Calcium 9.4 mg/dL (8.5-10.1) 05/11/22 04:40 Magnesium 1.6 mg/dL (2.0-2.9) L 05/11/22 04:40 Total Bilirubin 0.20 mg/dL (0.2-1.0) 05/11/22 04:40 AST 26 Units/L (15-37) 05/11/22 04:40 ALT 24 Units/L (12-78) 05/11/22 04:40 Alkaline Phosphatase 72 Units/L (46-116) 05/11/22 04:40 B-Natriuretic Peptide 26.9 pg/mL (0-79) 05/02/22 14:20 Total Protein 6.0 g/dL (6.4-8.2) L 05/11/22 04:40 Albumin 2.1 g/dL (3.4-5.0) L 05/11/22 04:40 Globulin 3.9 g/dL (2.5-4.5) 05/11/22 04:40 Albumin/Globulin Ratio 0.5 Ratio (1.1-2.1) L 05/11/22 04:40 Amylase 59 Units/L (25-115) 05/01/22 01:26 Lipase 99 Units/L (73-393) 05/01/22 01:26 Specimen Type Catherized urine 05/03/22 17:30 Urine Color Yellow (YELLOW) 05/03/22 17:30 Urine Appearance Cloudy (CLEAR) 05/03/22 17:30 Urine pH 5.0 (5.0 - 8.0) 05/03/22 17:30 Ur Specific [place] 1.025 (1.000-1.030) 05/03/22 17:30 Urine Protein 2+ (NEGATIVE) 05/03/22 17:30 Urine Glucose (UA) Negative (NEGATIVE) 05/03/22 17:30 Urine Ketones 3+ (NEGATIVE) 05/03/22 17:30 Urine Blood 4+ (NEGATIVE) 05/03/22 17:30 Urine Nitrite Negative (NEGATIVE) 05/03/22 17:30 Urine Bilirubin 1+ (NEGATIVE) 05/03/22 17:30 Urine Urobilinogen Normal (NORMAL) 05/03/22 17:30 Ur Leukocyte Esterase 2+ (NEGATIVE) 05/03/22 17:30 Urine RBC 5-10 /HPF (0-3) A 05/03/22 17:30 Urine WBC 20-30 /HPF (0-5) A 05/03/22 17:30 Ur Squamous Epith Cells Few /HPF (NEGATIVE) 05/03/22 17:30 Amorphous Sediment 2+ /HPF (NEGATIVE) 05/03/22 08:00 Urine Bacteria Trace /HPF (NEGATIVE) 05/03/22 17:30 Hyaline Casts Few /LPF (NEGATIVE) 05/03/22 08:00 Urine Mucus Moderate /HPF (NEGATIVE) 05/03/22 17:30 Ur Culture Indicated? Yes/culture set up 05/03/22 17:30 - Plan (1) Small bowel obstruction Status: Acute Plan: REGULAR LIQUID DIET, LOVENOX 40MG SC DAILY, LR AT 80 ML/HR, TPN AT 40 ML/HR, VALIUM 5MG IV Q8H PRN, ROCEPHIN 1G IV DAILY, MORPHINE 2MG IV Q4H PRN, ZOFRAN 4MG IV Q6H PRN, PHENERGAN 25MG IM Q6H PRN, THE POTASSIUM AND MAGNESIUM PROTOCOLS. (2) Urinary tract infection Status: Acute Qualifiers: Urinary tract infection type: acute cystitis Hematuria presence: without hematuria Qualified Code(s): N30.00 - Acute cystitis without hematuria (3) Supraumbilical hernia Status: Acute (4) Hypokalemia Status: Acute (5) Nausea & vomiting Status: Acute Qualifiers: Vomiting type: unspecified Qualified Code(s): R11.2 - Nausea with vomiting, unspecified (6) Hypertension Status: Chronic Qualifiers: Hypertension type: primary hypertension Qualified Code(s): I10 - Essential (primary) hypertension (7) CAD (coronary artery disease) Status: Chronic Qualifiers: Coronary Disease-Associated Artery/Lesion type: [place] artery [place] vs. transplanted heart: [place] heart Associated angina: unspecified whether angina present Qualified Code(s): I25.10 - Atherosclerotic heart disease of [place] coronary artery without angina pectoris (8) COPD (chronic obstructive pulmonary disease) Status: Chronic Qualifiers: COPD type: unspecified COPD Qualified Code(s): J44.9 - Chronic obstructive pulmonary disease, unspecified
--- NOTE | 2022-05-11 14:14 | RAD ---
HISTORYBowel [id number]/26/2023 .br.br.br.br nondiagnostic secondary to patient habitus, position-limitation and soft tissue attenuation.IMPRESSIONNondiagnostic examination of the abdomen.Electronically signed by: OPAL ABRAMS (May 11, 2022 14:13:42)
== END 2022-05-11 14:18 | disposition home or self-care (01) | DRG 389 ==
LOC: ER 00:41 → MED/SURG 04:48
PROVIDERS: ADMIT Internal Medicine; ATTEND Internal Medicine
DX: R10.84 Generalized abdominal pain; B96.89 Other specified bacterial agents as the cause of diseases classified elsewhere; K56.51 Intestinal adhesions [bands], with partial obstruction; I10 Essential (primary) hypertension; R11.2 Nausea with vomiting, unspecified; N20.0 Calculus of kidney; N30.00 Acute cystitis without hematuria; B96.29 Other Escherichia coli [E. coli] as the cause of diseases classified elsewhere; E66.01 Morbid (severe) obesity due to excess calories; I25.10 Atherosclerotic heart disease of native coronary artery without angina pectoris; E87.6 Hypokalemia; E78.2 Mixed hyperlipidemia; J44.9 Chronic obstructive pulmonary disease, unspecified; K43.9 Ventral hernia without obstruction or gangrene